=== PATIENT | male | born 1945 | race Caucasian/White ===

== ENCOUNTER 2022-05-06 17:12 | Inpatient (IN) | payer MEDICARE, MEDICAID ==
[~2022-05-06] VITALS: Ht 170.2 cm; Wt 87.0 kg
[2022-05-06] MEDS ORDERED: NS IV 500 ML 500 ML IV PRN (17:45)
[2022-05-06] MEDS ORDERED: polyethylene glycoL POWDER 17 GM (MIRALAX) PACK PO PRN (17:45)
[2022-05-06] MEDS ORDERED: diphenhydrAMINE 25 MG TAB (BENADRYL) PO PRN (17:45)
[2022-05-06] MEDS ORDERED: diphenhydrAMINE 50 MG/ML INJ (BENADRYL) IVP PRN (17:45)
[2022-05-06] MEDS ORDERED: MILK OF MAGNESIA 400 MG/5 ML 30 ML UDC PO PRN (17:45)
[2022-05-06] MEDS ORDERED: BISACODYL 10 MG SUPP (DULCOLAX) PR PRN (17:45)
[2022-05-06] MEDS ORDERED: ACETAMINOPHEN 325 MG TABLET PO PRN (17:45)
[2022-05-06] MEDS ORDERED: ONDANSETRON 4 MG/2 ML (SDV) Z0FRAN IV PRN (17:45)
[2022-05-06] MEDS ORDERED: CALCIUM CARBONATE 500 MG (TUMS) TAB.CHEW PO PRN (17:45)
[2022-05-06] MEDS ORDERED: ANTACID SUSP 30 ML UDC (MYLANTA) PO PRN (17:45)
[2022-05-06] MEDS ORDERED: ONDANSETRON 4 MG (ZOFRAN) ORAL DISSOLVE TAB PO PRN (17:45)
[2022-05-06] MEDS ORDERED: LACTULOSE SYRUP 10GM/15ML (ENULOSE) 30ML UDC PO PRN (17:45)
[2022-05-06] MEDS ORDERED: MELATONIN 3 MG TABLET PO PRN (17:45)
[2022-05-06] MEDS: NS IV 1000 ML 1,000 ML IV SCH (18:55)
[2022-05-06] MEDS ORDERED: dilTIAZem DRIP PRE-MIX 125 ML IV SCH (19:00)
[2022-05-06 19:11] LABS: BASOPHILS % (AUTO) 0 % (0-10); EOSINOPHILS % (AUTO) 0 % (0-10); HEMATOCRIT 44 % (40-54); HEMOGLOBIN 14.4 g/dL (13.3-17.7); LYMPHOCYTES # (AUTO) 0.7 10^3/uL (1.0-4.0); LYMPHOCYTES % (AUTO) 5 % (12-44); MEAN CORPUSCULAR HEMOGLOBIN 29 pg (25-34); MEAN CORPUSCULAR HGB CONC 33 g/dL (32-36); MEAN CORPUSCULAR VOLUME 87 fL (80-99); MEAN PLATELET VOLUME 10.5 fL (9.0-12.2); MONOCYTES # (AUTO) 0.2 10^3/uL (0.0-1.0); MONOCYTES % (AUTO) 2 % (0-12); NEUTROPHILS # (AUTO) 12.7 10^3/uL (1.8-7.8); NEUTROPHILS % (AUTO) 93 % (42-75); PLATELET COUNT 219 10^3/uL (130-400); WHITE BLOOD COUNT 13.7 10^3/uL (4.3-11.0)
[2022-05-06 19:22] LABS: ALBUMIN 3.5 GM/DL (3.2-4.5)
[2022-05-06 19:23] LABS: POTASSIUM 4.8 MMOL/L (3.6-5.0)
[2022-05-06 19:24] LABS: LYMPHOCYTES % (MANUAL) 5 %; MONOCYTES % (MANUAL) 3 %; NEUTROPHILS % (MANUAL) 92 %; RBC MORPH NORMAL
[2022-05-06 19:25] LABS: TOTAL PROTEIN 6.1 GM/DL (6.4-8.2)
[2022-05-06 19:27] LABS: BILIRUBIN,TOTAL 0.3 MG/DL (0.1-1.0)
--- NOTE | 2022-05-06 19:27 | Diagnostic Imaging Report ---
INDICATION: Shortness of breath COMPARISON: None available. TECHNIQUE: Single radiograph of the chest dated 05/06/2022. FINDINGS: The cardiac silhouette is within normal limits in size. No significant pulmonary vascular congestion. Retrocardiac density is present midline, felt to relate to a small hiatal hernia. Mild left basilar interstitial opacities. The lungs are otherwise clear of focal pulmonary opacity. No pleural effusion. No pneumothorax. No acute osseous abnormality IMPRESSION: Mild left basilar atelectasis and/or pneumonitis. Small hiatal hernia suspected. Dictated by: Dictated on workstation # [id number]
[2022-05-06 19:29] LABS: CREATININE SERUM 1.05 MG/DL (0.60-1.30)
--- NOTE | 2022-05-06 20:01 | History & Physical ---
History of Present Illness HPI/Chief Complaint CC: SVT post op left knee replacement at [facility] per Dr Cassidy HPI: This is a 76yoWM [place] patient at [facility] who presented to the ICU following an uncomplicated left knee replacement by Dr Cassidy at [facility] but 4 hours post op he was noted to have tachycardia and EKG revealed SVT. Patient required transfer to ICU and Cardiology consultation. 09/2021 admit DC note from [facility] copied and pasted: Symptomatic anemia Atrial fibrillation with rapid ventricular response Severe anemia Orthostatic dizziness Dyspnea History of alcohol abuse Resolved Hospital Problems No resolved problems to display. Kenvil 5d Jesse RamirezsArial 5d is a Kenvil 5d 76 y.o.Kenvil 5d Kenvil 5d maleArial 5d who was admitted to [facility] on Kenvil 5d 2Arial 5d and found to have a principle diagnosis of multiple erosive lesions in the stomach due to NSAID use as well as new onset atrial fibrillation with rapid ventricular response. 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 He was found to have anemia down to 6.4 on arrival and EKG also showed atrial fibrillation with rapid ventricular response. Patient had apparently been taking significant amounts of aspirin and other NSAIDs due to the pain in his knees. He had an appropriate response to transfusion with hemoglobin maintaining in the sevens following the transfusion of red blood cells. GI was consulted and performed an upper endoscopy with the finding of multiple lesions in the stomach as well as erosive esophagitis (see report below). Hemoglobin was stable following procedure in the transfusion. He is recommended to have follow-up with Dr. Elizabeth in 2 weeks with a repeat CBC at that time and to start twice daily PPI for healing of the erosions. Obviously, he is to avoid NSAIDs. Regarding his atrial fibrillation with rapid ventricular response, he was started on diltiazem 60 4 times daily with good response and spontaneous return to normal sinus rhythm. The patient will be transition to extended release diltiazem on discharge 240 mg and no anticoagulation due to his anemia. Due to his significant weakness, PT OT is recommending intermediate facility placement for him. See below for his echo as well as his EGD reports. [facility] GI Patient Name: Jesse Luis Procedure Date: 09/12/2021 Date of : 1945 Admit Type: Inpatient Age: 76 Attending MD: Kilo Elizabeth , Procedure: Upper GI endoscopy Indications: Iron deficiency anemia secondary to chronic blood loss Providers: Kilo Elizabeth Referring MD: Medicines: Propofol per Anesthesia Complications: No immediate complications. Procedure: Pre-Anesthesia Assessment: - This assessment was completed prior to the administration of sedation. After obtaining informed consent, the endoscope was passed under direct vision. Throughout the procedure, the patient's blood pressure, pulse, and oxygen saturations were monitored continuously. The was introduced through the mouth, and advanced to the second part of duodenum. The upper GI endoscopy was accomplished without difficulty. The patient tolerated the procedure well. Findings: LA Grade C (one or more mucosal breaks continuous between tops of 2 or more mucosal folds, less than 75% circumference) esophagitis with bleeding was found in the middle and lower thirds of the esophagus. Biopsies were taken with a cold forceps for histology. Verification of patient identification for the specimen was done. Estimated blood loss was minimal. A large hiatal hernia with multiple Basil ulcers was found. The proximal extent of the gastric folds (end of tubular esophagus) was 35 cm from the incisors. The hiatal narrowing was 40 cm from the incisors. A few localized 5 mm erosions with stigmata of recent bleeding were found in the gastric antrum. Biopsies were taken with a cold forceps for histology. Verification of patient identification for the specimen was done. Estimated blood loss was minimal. A few 5 mm sessile polyps with no stigmata of recent bleeding were found in the gastric body. These polyps were removed with a cold snare. Polyp resection was incomplete. The resected tissue was retrieved. Verification of patient identification for the specimen was done. Estimated blood loss was minimal. Few non-bleeding superficial duodenal ulcers with no stigmata of bleeding were found in the duodenal bulb. The largest lesion was 3 mm in largest dimension. Impression: - LA Grade C reflux esophagitis with bleeding. Biopsied. - Large hiatal hernia with multiple Basil ulcers. - Erosive gastropathy with stigmata of recent bleeding. Biopsied. - A few gastric polyps. Incomplete resection. Resected tissue retrieved. - Non-bleeding duodenal ulcers with no stigmata of bleeding. Recommendation: - Await pathology results. Kilo Elizabeth, 09/12/2021 4:52:42 PM This report has been signed electronically. Number of Addenda: 0 Note Initiated On: 09/12/2021 1:29 PM Scope Withdrawal Time Scope In: Scope Out: 100 Camryn Gautam GET Maldonado TRANSTHORACIC ECHOCARDIOGRAPHIC REPORT [facility] Patient Name: Jesse Luis :1945ge/Sex:76 y.o.male No Echo contrast was used Image quality: Poor acoustic windows with poor image quality Indication: Arrhythmias; Atrial fibrillation/flutter Rhythm: Sinus Septal wall thickness in end diastole: 11.8 mm LV internal dimension in end diastole: 46.3 mm LV posterior wall thickness in end diastole: 11.8 mm LV internal dimension in end systole: 30.1 mm AV Maximum velocity: 2.31 m/s AV Mean gradient: 8.7 mmHg AV Area: 1.99 cm Dimensionless valve index: 0.52 Stroke-volume index: 43.9 ml/m2 Left atrial volume index: 41.2 ml/m2 LEFT ATRIUM: Moderate enlargement (42-48 ml/m2) RIGHT ATRIUM: Normal size LEFT VENTRICLE: LV size: Normal size, Mild concentric hypertrophy, Normal wall motion, LV systolic function is Normal, estimated LVEF 60 %. Diastolic function is severely abnormal (grade 3). RIGHT VENTRICLE: Normal size and normal function INTERATRIAL SEPTUM: Normal INTERVENTRICULAR SEPTUM: Normal AORTIC VALVE: Calcified, Thickened, Mild regurgitation, no stenosis MITRAL VALVE: Leaflets are calcified, Leaflets are thickened,Moderate regurgitation, no stenosis TRICUSPID VALVE: Leaflets are thickened, Mild regurgitation PULMONIC VALVE: Not well visualized, No regurgitation PULMONARY VEINS: Systolic blunting of pulmonary venous flow PULMONARY ARTERIES: Elevated pulmonary pressure, estimated PASP 50-55mmHg INFERIOR VENA CAVA: Normal size with diminished respiratory variation, CVP 8 mmHg AORTA: Normal ascending aorta size PERICARDIUM: No pericardial effusion Conclusion: LV systolic function is preserved with an EF greater than 60% Grade 3 diastolic dysfunction PA systolic pressures estimated 50 to 55 mmHg Thickened valvular leaflets with moderate mitral regurgitation and mild aortic insufficiency Discharge medications and new prescriptions: Medication List START taking these medications [id number] mg Extended Release 24 hour tablet Commonly known as: Cardizem LA Take 1 Tablet (240 mg) by mouth daily. Signed by: Dr. Tien Giordano DO Quantity: 30 Tablet Refills: 0 [id number] mg Tablet, Delayed Release (E.C.) Commonly known as: PROTONIX Take 1 Tablet (40 mg) by mouth 2 times daily before meals. Signed by: Dr. Tien Giordano DO Quantity: 60 Tablet Refills: 2 Source: patient Exam Limitations: clinical condition Date Seen 05/06/22 Time Seen by a Provider: 18:00 Attending Physician Bridgett Oleary DO PCP Admitting Physician: Bridgett Oleary DO Attending Physician: Bridgett Oleary DO Referring Physician Date of Admission May 06, 2022 at 18:35 Home Medications & Allergies Home Medications Reviewed patient Home Medication Reconciliation performed by pharmacy medication reconciliations missile and missile checkout technician and/or nursing. Patients Allergies have been reviewed. Allergies Allergies Coded Allergies No Known Drug Allergies (Unverified05/06/22) Past Xbifudq-Nnileg-Dofgzq Hx Past Med/Social Hx: Reviewed Nursing Past Med/Soc Hx, Reviewed and Corrections made Patient Social History Marrital Status: single Employed/Student: retired Alcohol Use: Occasionally Uses Smoking Status: Former Smoker Past Medical History Surgeries: Orthopedic Cardiac: Atrial Fibrillation Neurological: Dementia Gastrointestinal: Gastrointestinal Bleed Musculoskeletal: Arthritis Review of Systems Constitutional: see HPI EENTM: no symptoms reported Respiratory: no symptoms reported Cardiovascular: palpitations Gastrointestinal: no symptoms reported Genitourinary: no symptoms reported Musculoskeletal: back pain, joint pain Psychiatric/Neurological: No Symptoms Reported All Other Systems Reviewed Negative Unless Noted: Yes Physical Exam Physical Exam Vital Signs Vital Signs - First Documented 05/06/22 05/06/22 05/06/22 18:41 19:05 19:12 Temp 36.3 Pulse 154 B/P (MAP) 105/69 Capillary Refill : Height, Weight, BMI Height: '" Weight: lbs. oz. kg; BMI Method: General Appearance: No Apparent Distress, WD/WN, Chronically ill Eyes: Bilateral Eye Normal Inspection, Bilateral Eye PERRL HEENT: PERRL/EOMI, Normal ENT Inspection, Pharynx Normal Neck: Full Range of Motion, Normal Inspection, Non Tender, Supple, Carotid Bruit Respiratory: Chest Non Tender, Lungs Clear, Normal Breath Sounds, No Accessory Muscle Use, No Respiratory Distress Cardiovascular: No Edema, No Gallop, No JVD, No Murmur, Normal Peripheral Pulses, Tachycardia Gastrointestinal: Normal Bowel Sounds, No Organomegaly, No Pulsatile Mass, Non Tender, Soft Back: Normal Inspection, No CVA Tenderness, No Vertebral Tenderness Extremity: Normal Capillary Refill, Normal Inspection, Normal Range of Motion (except left leg), Non Tender, No Calf Tenderness, No Pedal Edema Neurologic/Psychiatric: Alert, Oriented x3, No Motor/Sensory Deficits, Normal Mood/Affect Skin: Normal Color, Warm/Dry Lymphatic: No Adenopathy Results Results/Procedures Labs Laboratory Tests 05/06/22 18:58 Patient resulted labs reviewed. Assessment/Plan Admission Diagnosis Assessment: Acute SVT with hypotension requiring transfer to higher level of care ICU from [facility] s/p knee left replacement at [facility] per Dr Cassidy uncomplicated POD # 0 ATX on CXR with elevated wbc will need to cover for PNA h/o AF Debility resides in [place] h/o alcohol use OA h/o GIB 09/2021 from NSAID's requiring transfusion Leukocytosis Plan: ICU [facility], [place] drip Dr Ortiz appreciated Abx coverage Septic w/u Admission Status: Inpatient Order (span 2 midnights) Reason for Inpatient Admission: SVT following left knee replacement Diagnosis/Problems Diagnosis/Problems (1) SVT (supraventricular tachycardia) Clinical Quality Measures DVT/VTE Risk/Contraindication: Contraindications-Mechi: Other *list below* Other: OR BRIDGETT OLEARY DO May 06, 2022 20:00
--- NOTE | 2022-05-06 20:04 | Tele-ICU Consult ---
Progress Note 76 yo M new admission from OSH? with SVT, NAGMA, hypothermia. Video assessment and chart review completed. Patient is awake, alert on RA talkative in NAD. Diltiazem gtt with improvement in HR from 150 to 79. Nonspecific leukocytosis with negative sepsis screen. Medications, orders reviewed. Metabolic acidosis likely due to hyperchloremic IVF resuscitation. Recheck temp pending, frequent VS checks in ICU currently. AM labs ordered DVT prophylaxis added Diagnosis: SVT, metabolic acidosis _X__ patient provided consent for the telehealth visit ___patient is not able to provide consent for the telehealth visit, service provided to critically care patient using implied consent doctrine. A total of _15_ minutes of critical care time was devoted to this patient, including reviewing this patient's available data, including medical history, events of note and test results. I have overseen the activities of other members of the care team under my direct supervision during events of the note . This was required to treat and/or prevent further deterioration of critical care conditions ( as above ). Service provided to a patient admitted to ICU bed via interactive E-CARE system with real-time audio and video telecommunications from [facility]- ICU hub located in [place], [place] ROMA KRAUSE MD May 06, 2022 20:04
[2022-05-06] MEDS: SENNOSIDES 8.6 MG (SENOKOT) TAB PO SCH (21:00)
[2022-05-06] MEDS: DOCUSATE SODIUM 100 MG (COLACE) CAP PO SCH (21:00)
[2022-05-06] MEDS ORDERED: CEFEPIME INJECTION 1,000 MG in NS (IVPB) 50 ML IV SCH (21:00)
[2022-05-06] MEDS: RT-ALBUTEROL/IPRATROPIUM 3 ML (DUONEB) VIAL INH SCH (21:51)
[2022-05-06] MEDS: ENOXAPARIN 40 MG/0.4 ML (LOVENOX) SYR SC SCH (22:43)
[2022-05-07 04:47] LABS: ABG BASE EXCESS -2.6 MMOL/L (-2.5-2.5); ABG OXYGEN SATURATION 95 % (94-100); ABG PCO2 35 MMHG (35-45); ABG PO2 81 MMHG (79-93); ABG TCO2 22.6 MMOL/L (21.0-31.0); ALLENS TEST YES-POS; PATIENT TEMP 36.9
[2022-05-07 05:14] LABS: BASOPHILS % (AUTO) 0 % (0-10); EOSINOPHILS % (AUTO) 0 % (0-10); HEMATOCRIT 39 % (40-54); HEMOGLOBIN 12.8 g/dL (13.3-17.7); LYMPHOCYTES # (AUTO) 1.2 10^3/uL (1.0-4.0); LYMPHOCYTES % (AUTO) 9 % (12-44); MEAN CORPUSCULAR HEMOGLOBIN 29 pg (25-34); MEAN CORPUSCULAR HGB CONC 33 g/dL (32-36); MEAN CORPUSCULAR VOLUME 88 fL (80-99); MEAN PLATELET VOLUME 10.9 fL (9.0-12.2); MONOCYTES % (AUTO) 7 % (0-12); NEUTROPHILS # (AUTO) 11.9 10^3/uL (1.8-7.8); NEUTROPHILS % (AUTO) 84 % (42-75); PLATELET COUNT 183 10^3/uL (130-400); WHITE BLOOD COUNT 14.1 10^3/uL (4.3-11.0)
[2022-05-07 05:18] LABS: INR 1.1 (0.8-1.4); PROTHROMBIN TIME PATIENT 14.3 SEC (12.2-14.7)
[2022-05-07 05:29] LABS: ALBUMIN 3.2 GM/DL (3.2-4.5); POTASSIUM 4.4 MMOL/L (3.6-5.0)
[2022-05-07 05:32] LABS: TOTAL PROTEIN 5.4 GM/DL (6.4-8.2)
[2022-05-07 05:33] LABS: BILIRUBIN,TOTAL 0.3 MG/DL (0.1-1.0)
[2022-05-07 05:35] LABS: CREATININE SERUM 0.91 MG/DL (0.60-1.30); PHOSPHORUS 2.8 MG/DL (2.3-4.7)
[2022-05-07] MEDS ORDERED: POTASSIUM CL 10MEQ/50ML IVPB 50 ML IV SCH (06:00)
[2022-05-07] MEDS ORDERED: KCL 20 MEQ TAB (K-DUR) PO SCH (06:00)
[2022-05-07] MEDS ORDERED: MAGNESIUM 1 GM/100 ML IVPB 100 ML IV SCH (06:00)
[2022-05-07] MEDS: SENNOSIDES 8.6 MG (SENOKOT) TAB PO SCH ×2 (08:15→23:27)
[2022-05-07] MEDS: DOCUSATE SODIUM 100 MG (COLACE) CAP PO SCH ×2 (08:15→23:27)
[2022-05-07] MEDS: CEFEPIME INJECTION 1,000 MG in NS (IVPB) 50 ML IV SCH ×3 (08:18→21:28)
[2022-05-07] MEDS: NS IV 1000 ML 1,000 ML IV SCH (08:22)
[2022-05-07] MEDS: RT-ALBUTEROL/IPRATROPIUM 3 ML (DUONEB) VIAL INH SCH ×2 (08:31→15:27)
[2022-05-07] MEDS ORDERED: NS IV 1000 ML 1,000 ML IV SCH (08:39)
--- NOTE | 2022-05-07 09:21 | Physical Therapy Evaluation ---
PT Evaluation-General Medical Diagnosis Admission Date May 06, 2022 at 18:35 Medical Diagnosis: SVT Onset Date: May 06, 2022 Therapy Diagnosis Therapy Diagnosis: impaired mobility, ROM Precautions Precautions/Isolations: Fall Prevention, Standard Precautions Weight Bear Status Left Lower Extremity: Left Weight Bearing/Tolerated Referral Physician: Bridgett Daniels DO Reason for Referral: Evaluation/Treatment Medical History Additional Medical History Past Medical History Surgeries: Orthopedic Cardiac: Atrial Fibrillation Neurological: Dementia Gastrointestinal: Gastrointestinal Bleed Musculoskeletal: Arthritis Current History Patient had a left total knee on 05/06/22 per patient Reviewed History: Yes Social History Home: [facility] Prior Prior Level of Function SCALE: Activities may be completed with or without assistive devices. 3-Cgxwsdaihu-wyfjdvq completes the activity by him/herself with no assistance from a helper. 5-Set-up or Clean-up Assistance-helper sets up or cleans up; patient completes activity. Julian assists only prior to or following the activity. 4-Supervision or Touching Assistance-helper provides verbal cues and/or touching/steadying and/or contact guard assistance as patient completes activity. Assistance may be provided throughout the activity or intermittently. 3-Partial/Moderate Assistance-helper does LESS THAN HALF the effort. Julian lifts, holds or supports trunk or limbs, but provides less than half the effort. 2-Substantial/Maximal Assistance-helper does MORE THAN HALF the effort. Julian lifts or holds trunk or limbs and provides more than half the effort. 1-Ehhysxyuc-huihyh does ALL the effort. Patient does none of the effort to complete the activity. Or, the assistance of 2 or more helpers is required for the patient to complete the activity. If activity was not attempted, code reason: 7-Patient Refused. 9-Not Applicable-not attempted and the patient did not perform the activity before the current illness, exacerbation or injury. 10-Not Attempted due to Environmental Limitations-(lack of equipment, weather restraints, etc.). 88-Not Attempted due to Medical Conditions or Safety Concerns. Bed Mobility: 3 Transfers (B,C,W/C): 3 Gait: 3 Indoor Mobility (Ambulation): Needed Some Help Prior Devices Use: Manual wheelchair, Walker PT Evaluation-Current Subjective Patient in bed pre tx, agrees to PT, has no complaints of pain. Patient had a left total knee yesterday per patient. Patient states he uses a WC for mobility primarily at the [facility]. Pt/Family Goals to be independent at home Objective Patient Orientation: Person, Place, Situation Attachments: New Catheter, IV ROM/Strength ROM Lower Extremities left knee extension +10 degrees, flexion 70 degrees Sensory Vision: Wears Glasses Hearing: Functional Sensation Right Lower Extremit: Intact Sensation Left Lower Extremity: Intact Transfers Roll Left to Right (QC): 4 Sit to Lying (QC): 4 Lying to Sitting/Side of Bed(Q: 4 Sit to Stand (QC): 4 Patient is able to sit to the side of the bed with SBA, stand with CGA, he is not able to ambulate due to pain in right knee, he is able to sidestep one step toward the head of the bed while bearing weight on his arms but no more than one step. Patient sits back down and lays down with SBA, he is able to properly position himself with cues. Balance Sitting Static: Normal Sitting Dynamic: Normal Standing Static: Fair Treatment LLE total knee protocol x10 (AP, QS, HS, SAQ, SLR) Assessment/Needs Patient in bed post tx with nurse call, phone, tray, all needs met. Patient has impaired mobility and ROM. His left knee has fairly good function but he has severe pain in right knee that kept him from ambulating. Rehab Potential: Guarded PT Group Home Goals Taxonomy Teacher Goals PT Group Home Goals Time Frame: May 14, 2022 Roll Left & Right (QC): 6 Sit to Lying (QC): 6 Lying-Sitting on Side/Bed(QC): 6 Sit to Stand (QC): 4 (SBA) Chair/Epj-on-Nzyho Xfer(QC): 4 (SBA) Walk 10 feet (QC): 4 (SBA) PT Plan Problem List Problem List: Activity Tolerance, Functional Strength, Safety, Balance, Gait, Transfer, Bed Mobility, ROM Treatment/Plan Treatment Plan: Continue Plan of Care Treatment Plan: Bed Mobility, Education, Functional Activity Glenny, Functional Strength, Gait, Safety, Therapeutic Exercise, Transfers Treatment Duration: May 14, 2022 Frequency: 11 times per week Estimated Hrs Per Day: .25 hour per day Patient and/or Family Agrees t: Yes Safety Risks/Education Patient Education: Correct Positioning, Safety Issues Teaching Recipient: Patient Teaching Methods: Demonstration, Discussion Response to Teaching: Reinforcement Needed Discharge Recommendations Plan Patient will perform bed mobility and transfer training, balance and endurance training, functional strengthening, gait training, and education, to improve functional mobility Therapy Discharge Recommendati: Other, See Comments (NH) Time Time In: 841 Time Out: 900 DATE: May 07, 2022 Total Billed Treatment Time: 19 Total Billed Treatment 1 visit EVM 19' EMMANUEL SYKES PT May 07, 2022 09:21
--- NOTE | 2022-05-07 11:17 | Consultation-Cardiology ---
HPI-Cardiology Cardiology Consultation Date of Consultation 05/07/22 Date of Admission Time Seen by Provider: 11:12 Indication: Atrial fibrillation HPI 76-year-old gentleman with paroxysmal atrial fibrillation, hypertension hyperlipidemia, diastolic dysfunction. Underwent knee replacement, postoperatively noted to be in paroxysmal atrial tachycardia. He was transferred from [facility] to the ICU and started on Cardizem drip. Continue to have episodes of tachycardia alternating with bradycardia while in ICU. On my evaluation the patient was having significant tremor, he was agitated and requesting to get out of the bed and wanting to start physical therapy as soon as possible Home Medications & Allergies Allergies: Coded Allergies: No Known Drug Allergies (Unverified , 05/06/22) Home Medication List Reviewed: Yes MAB-Vbckvo-Aidshv Hx Patient Social History Marital Status: single Employed/Student: retired Smoking Status: Former Smoker Have you traveled recently?: No Alcohol Use?: No Past Medical History Discussed below Family Medical History Significant Family History: No Pertinent Family Hx Review of Systems-General Review of Systems Constitutional: see HPI EENTM: no symptoms reported Respiratory: no symptoms reported Cardiovascular: palpitations Gastrointestinal: no symptoms reported Genitourinary: no symptoms reported Musculoskeletal: back pain, joint pain Skin: no symptoms reported, see HPI Psychiatric/Neurological: See HPI, Anxiety, Tremors All Other Systems Reviewed Negative Unless Noted: Yes Reviewed Test Results Reviewed Test Results Lab Laboratory Tests Test 05/06/22 18:58 05/06/22 21:00 05/06/22 23:15 05/07/22 04:31 Range/Units White Blood Count 13.7 H 4.3-11.0 10^3/uL Red Blood Count 5.06 4.30-5.52 10^6/uL Hemoglobin 14.4 13.3-17.7 g/dL Hematocrit 44 40-54 % Mean Corpuscular Volume 87 80-99 fL Mean Corpuscular Hemoglobin 29 25-34 pg Mean Corpuscular Hemoglobin Concent 33 32-36 g/dL Red Cell Distribution Width 13.4 10.0-14.5 % Platelet Count 219 130-400 10^3/uL Mean Platelet Volume 10.5 9.0-12.2 fL Immature Granulocyte % (Auto) 0 % Neutrophils (%) (Auto) 93 H 42-75 % Lymphocytes (%) (Auto) 5 L 12-44 % Monocytes (%) (Auto) 2 0-12 % Eosinophils (%) (Auto) 0 0-10 % Basophils (%) (Auto) 0 0-10 % Neutrophils # (Auto) 12.7 H 1.8-7.8 10^3/uL Lymphocytes # (Auto) 0.7 L 1.0-4.0 10^3/uL Monocytes # (Auto) 0.2 0.0-1.0 10^3/uL Eosinophils # (Auto) 0.0 0.0-0.3 10^3/uL Basophils # (Auto) 0.0 0.0-0.1 10^3/uL Immature Granulocyte # (Auto) 0.1 0.0-0.1 10^3/uL Neutrophils % (Manual) 92 % Lymphocytes % (Manual) 5 % Monocytes % (Manual) 3 % Blood Morphology Comment NORMAL Sodium Level 138 135-145 MMOL/L Potassium Level 4.8 3.6-5.0 MMOL/L Chloride Level 108 H 98-107 MMOL/L Carbon Dioxide Level 18 L 21-32 MMOL/L Anion Gap 12 5-14 MMOL/L Blood Urea Nitrogen 15 7-18 MG/DL Creatinine 1.05 0.60-1.30 MG/DL Estimat Glomerular Filtration Rate 74 BUN/Creatinine Ratio 14 Glucose Level 165 H 70-105 MG/DL Calcium Level 9.0 8.5-10.1 MG/DL Corrected Calcium 9.4 8.5-10.1 MG/DL Total Bilirubin 0.3 0.1-1.0 MG/DL Aspartate Amino Transf (AST/SGOT) 16 5-34 U/L Alanine Aminotransferase (ALT/SGPT) 19 0-55 U/L Alkaline Phosphatase 62 40-136 U/L Troponin I < 0.028 <0.028 NG/ML Total Protein 6.1 L 6.4-8.2 GM/DL Albumin 3.5 3.2-4.5 GM/DL Lactic Acid Level 2.04 *H 1.24 0.50-2.00 MMOL/L Blood Gas Puncture Site RIGHT RADIAL Blood Gas Patient Temperature 36.9 Arterial Blood pH 7.40 7.37-7.43 Arterial Blood Partial Pressure CO2 35 35-45 MMHG Arterial Blood Partial Pressure O2 81 79-93 MMHG Arterial Blood HCO3 22 L 23-27 MMOL/L Arterial Blood Total CO2 22.6 21.0-31.0 MMOL/L Arterial Blood Oxygen Saturation 95 94-100 % Arterial Blood Base Excess -2.6 L -2.5-2.5 MMOL/L Otoniel Test YES-POS Blood Gas Ventilator Setting NA Blood Gas Inspired Oxygen NA Test 05/07/22 04:45 Range/Units White Blood Count 14.1 H 4.3-11.0 10^3/uL Red Blood Count 4.49 4.30-5.52 10^6/uL Hemoglobin 12.8 L 13.3-17.7 g/dL Hematocrit 39 L 40-54 % Mean Corpuscular Volume 88 80-99 fL Mean Corpuscular Hemoglobin 29 25-34 pg Mean Corpuscular Hemoglobin Concent 33 32-36 g/dL Red Cell Distribution Width 13.4 10.0-14.5 % Platelet Count 183 130-400 10^3/uL Mean Platelet Volume 10.9 9.0-12.2 fL Immature Granulocyte % (Auto) 0 % Neutrophils (%) (Auto) 84 H 42-75 % Lymphocytes (%) (Auto) 9 L 12-44 % Monocytes (%) (Auto) 7 0-12 % Eosinophils (%) (Auto) 0 0-10 % Basophils (%) (Auto) 0 0-10 % Neutrophils # (Auto) 11.9 H 1.8-7.8 10^3/uL Lymphocytes # (Auto) 1.2 1.0-4.0 10^3/uL Monocytes # (Auto) 1.0 0.0-1.0 10^3/uL Eosinophils # (Auto) 0.0 0.0-0.3 10^3/uL Basophils # (Auto) 0.0 0.0-0.1 10^3/uL Immature Granulocyte # (Auto) 0.1 0.0-0.1 10^3/uL Prothrombin Time 14.3 12.2-14.7 SEC INR Comment 1.1 0.8-1.4 Activated Partial Thromboplast Time 29 24-35 SEC Sodium Level 141 135-145 MMOL/L Potassium Level 4.4 3.6-5.0 MMOL/L Chloride Level 111 H 98-107 MMOL/L Carbon Dioxide Level 20 L 21-32 MMOL/L Anion Gap 10 5-14 MMOL/L Blood Urea Nitrogen 16 7-18 MG/DL Creatinine 0.91 0.60-1.30 MG/DL Estimat Glomerular Filtration Rate 87 BUN/Creatinine Ratio 18 Glucose Level 139 H 70-105 MG/DL Calcium Level 9.0 8.5-10.1 MG/DL Corrected Calcium 9.6 8.5-10.1 MG/DL Phosphorus Level 2.8 2.3-4.7 MG/DL Magnesium Level 2.0 1.6-2.4 MG/DL Total Bilirubin 0.3 0.1-1.0 MG/DL Aspartate Amino Transf (AST/SGOT) 13 5-34 U/L Alanine Aminotransferase (ALT/SGPT) 16 0-55 U/L Alkaline Phosphatase 57 40-136 U/L Troponin I 0.059 H <0.028 NG/ML Total Protein 5.4 L 6.4-8.2 GM/DL Albumin 3.2 3.2-4.5 GM/DL Physical Exam Physical Exam Vital Signs Vital Signs - First Documented 05/06/22 05/06/22 05/06/22 18:41 19:00 19:12 Temp 36.3 Pulse 154 B/P (MAP) 105/69 (81) Pulse Ox 90 O2 Delivery Room Air Capillary Refill : Height, Weight, BMI Height: '" Weight: lbs. oz. kg; 31.82 BMI Method: General Appearance: No Apparent Distress, WD/WN, Chronically ill Eyes: Bilateral Eye Normal Inspection, Bilateral Eye PERRL HEENT: PERRL/EOMI, Normal ENT Inspection, Pharynx Normal Neck: Full Range of Motion, Normal Inspection, Non Tender, Supple, Carotid Bruit Respiratory: Chest Non Tender, Lungs Clear, Normal Breath Sounds, No Accessory Muscle Use, No Respiratory Distress Cardiovascular: No Edema, No Gallop, No JVD, No Murmur, Normal Peripheral Pulses, Systolic Murmur, Tachycardia Gastrointestinal: Normal Bowel Sounds, No Organomegaly, No Pulsatile Mass, Non Tender, Soft Back: Normal Inspection, No CVA Tenderness, No Vertebral Tenderness Extremity: Normal Capillary Refill, Normal Inspection, Normal Range of Motion (except left leg), Non Tender, No Calf Tenderness, No Pedal Edema Neurologic/Psychiatric: Alert, Oriented x3, No Motor/Sensory Deficits, Normal Mood/Affect Skin: Normal Color, Warm/Dry Lymphatic: No Adenopathy A/P-Cardiology Admission Diagnosis Paroxysmal atrial fibrillation Sinus node dysfunction Hypertension Hyperlipidemia. Assessment/Plan Paroxysmal atrial fibrillation alternating with sinus node dysfunction Having episodes of bradycardia. Started on Cardizem drip Heart rate is better controlled I will switch him to Cardizem 30 mg every 6 hours orally and stop the drip and evaluate tolerance and response [id number] score 4. Patient is unable to tolerate oral anticoagulation due to recent GI bleed. Status post knee replacement. Done at [facility]. Recovering Starting physical therapy 2D echo from [facility] reported to have left atrial enlargement, mild LVH with ejection fraction 60%, grade 3 diastolic dysfunction, pulmonary hypertens ion with PA pressure 50 to 55 mmHg Hypertension, currently borderline hypotensive, monitor blood pressure Hyperlipidemia, monitor lipids. Essential tremor, starting low-dose beta-blockers and evaluate tolerance and response Diabetes mellitus, followed and managed by primary care physician Status post recent GI bleed secondary to the use of aspirin and NSAID. Requiring blood transfusion. Continue to monitor Clinical Quality Measures DVT/VTE Risk/Contraindication: Contraindications-Mechi: Other *list below* Other: OR LORRIE FULTON MD May 07, 2022 11:17
--- NOTE | 2022-05-07 11:59 | Tele-ICU Progress Note ---
Subjective Date Seen by a Provider: May 07, 2022 Time Seen by a Provider: 11:58 Subjective/Events-last exam (Tele-ICU Physician , consultation) Available chart/ vitals / labs / Images reviewed H&P is from ER notes Patient's information available about PMH, allergy reviewed in EMR. ROS as per chart and RN report Video assessment done using teleICU camera, rest of exam as per RN Discussed with RN. He is a 76-year-old white male apparently prison patient reportedly had a uncomplicated left knee replacement at [facility] in [place] and a 4 hours after the surgery reportedly found to have a atrial fibrillation and with rapid ventricular rate. Subsequently he required ICU admission and cardiology consultation hence he is transferred to [facility] via [facility] in [place]. Currently his heart rate is controlled on 5 mg of Cardizem drip however his heart rate going up and down suggestive of for sinus node dysfunction. Patient already seen by cardiology. Impression 1. Status post left knee replacement 2. Paroxysmal atrial fibrillation with possible sinus node dysfunction 3. History of hypertension 4. History of hyperlipidemia 5. Type 2 diabetes mellitus Recommendations 1. Management of atrial fibrillation per cardiology. Anticoagulation could not be given as patient recently had a upper GI bleed secondary to the use of aspirin and NSAID 2. Diabetes management per primary care 3. Echocardiogram 4. Care coordination with bedside consultants and primary care physician. 5. Physical therapy. Sepsis Event Evaluation Height, Weight, BMI Height: '" Weight: lbs. oz. kg; 31.82 BMI Method: Focused Exam Lactate Level 05/06/22 21:00: Lactic Acid Level 2.04*H 05/06/22 23:15: Lactic Acid Level 1.24 Exam Exam Patient acknowledged, consented, and participated in this virtual visit which was conducted using real time audio/video Vital Signs Date Time Temp Pulse Resp B/P (MAP) Pulse Ox O2 Delivery O2 Flow Rate FiO2 05/07/22 11:00 78 129/72 (91) 95 Room Air 05/07/22 10:00 88 104/87 (93) 95 Room Air 05/07/22 09:00 75 110/80 (90) 100 Room Air 05/07/22 08:00 97 Room Air 05/07/22 08:00 73 92/64 (73) 100 Room Air 05/07/22 07:43 36.7 05/07/22 07:07 64 05/07/22 07:00 66 109/93 (98) 99 Room Air 05/07/22 06:00 65 107/55 (72) 100 Room Air 05/07/22 05:00 134 95/58 (70) 100 Room Air 05/07/22 04:29 27 05/07/22 04:26 139 05/07/22 04:18 100 Room Air 05/07/22 04:00 67 101/53 (69) 100 Room Air 05/07/22 03:00 70 108/55 (72) 100 Room Air 05/07/22 02:18 91 138/62 (87) 100 Room Air 05/07/22 02:15 68 05/07/22 02:00 135 92/68 (76) 100 Room Air 05/07/22 01:12 144 136/87 (103) 88 Room Air 05/07/22 01:00 140 05/07/22 00:30 140 111/77 (88) 100 Room Air 05/07/22 00:00 98 Room Air 05/07/22 00:00 142 146/90 (108) 86 Room Air 05/06/22 23:00 141 97/67 (77) 100 Room Air 05/06/22 22:00 80 105/59 (74) 100 Room Air 05/06/22 21:49 100 Room Air 05/06/22 21:00 75 105/59 (74) 100 Room Air 05/06/22 20:00 81 130/71 (90) 100 Room Air 05/06/22 20:00 100 Room Air 05/06/22 19:45 82 120/74 (89) 100 Room Air 05/06/22 19:30 82 134/65 (88) 99 Room Air 05/06/22 19:24 79 105/69 05/06/22 19:15 76 121/67 (85) 100 Room Air 05/06/22 19:12 36.3 05/06/22 19:08 64 05/06/22 19:06 61 125/61 (82) 90 Room Air 05/06/22 19:05 150 105/69 05/06/22 19:04 37 05/06/22 19:00 151 105/69 (81) 90 Room Air 05/06/22 19:00 151 05/06/22 18:41 154 I & O0 05/07/22 07:00 Intake Total 730 ml Output Total 1050 ml Balance -320 ml Height & Weight Height: '" Weight: lbs. oz. kg; 31.82 BMI Method: General Appearance: No Apparent Distress, WD/WN, Chronically ill HEENT: PERRL/EOMI, Normal ENT Inspection, Pharynx Normal Neck: Full Range of Motion, Normal Inspection, Non Tender, Supple, Carotid Bruit Respiratory: Chest Non Tender, Lungs Clear, Normal Breath Sounds, No Accessory Muscle Use, No Respiratory Distress Cardiovascular: No Edema, No Gallop, No JVD, No Murmur, Normal Peripheral Pulses, Systolic Murmur, Tachycardia Extremity: Normal Capillary Refill, Normal Inspection, Normal Range of Motion (except left leg), Non Tender, No Calf Tenderness, No Pedal Edema Neurologic/Psychiatric: Alert, Oriented x3, No Motor/Sensory Deficits, Normal Mood/Affect Skin: Normal Color, Warm/Dry Lymphatic: No Adenopathy Other comments PE PER RN Results Lab Laboratory Tests 05/06/22 18:58 05/07/22 04:45 Assessment/Plan Assessment/Plan ABOVE Critical Care: Critically Ill Patient Time spent with patient (mins): 15 YOBANY BASSETT MD May 07, 2022 11:59
[2022-05-07] MEDS: PROPRANOLOL 20 MG (INDERAL) TABLET PO SCH ×2 (12:22→22:19)
[2022-05-07] MEDS ORDERED: DIGOXIN 0.25 MG/ML (LANOXIN) 2 ML AMP IV NR (12:45)
[2022-05-07] MEDS ORDERED: FLEC50TA PO (13:07)
[2022-05-07] MEDS ORDERED: FLUT9.9S NSEACH (13:07)
[2022-05-07] MEDS ORDERED: PANT20TA18 PO (13:07)
[2022-05-07] MEDS ORDERED: MENT118G TP (13:07)
[2022-05-07] MEDS ORDERED: ASCO-262 PO (13:07)
[2022-05-07] MEDS ORDERED: METO50TA15 PO (13:07)
[2022-05-07] MEDS ORDERED: FERR325T5 PO (13:07)
[2022-05-07] MEDS ORDERED: NS IV 1000 ML 1,000 ML ONE (13:36)
--- NOTE | 2022-05-07 14:26 | Physical Therapy Daily Note ---
PT Daily Note-Current Subjective Patient in bed pre tx, agrees to PT, has 5/10 pain in right knee, no pain in left knee. Pain Section J - Health Conditions 1. Rarely or not at all 2. Occasionally 3. Frequently 4. Almost constantly 8. Unable to answer Pain Effect on Sleep: 4 Pain Interference with Therapy: 4 Pain Interference w/Day-to-Day: 4 Appearance Patient in bed post tx with nurse call, phone, tray, all needs met. Mental Status Patient Orientation: Person, Place, Situation Transfers SCALE: Activities may be completed with or without assistive devices. 9-Jtylomppko-wswbyko completes the activity by him/herself with no assistance from a helper. 5-Set-up or Clean-up Assistance-helper sets up or cleans up; patient completes activity. [place] assists only prior to or following the activity. 4-Supervision or Touching Assistance-helper provides verbal cues and/or touching/steadying and/or contact guard assistance as patient completes activity. Assistance may be provided throughout the activity or intermittently. 3-Partial/Moderate Assistance-helper does LESS THAN HALF the effort. [place] lifts, holds or supports trunk or limbs, but provides less than half the effort. 2-Substantial/Maximal Assistance-helper does MORE THAN HALF the effort. [place] lifts or holds trunk or limbs and provides more than half the effort. 5-Grcqxktuf-brgphl does ALL the effort. Patient does none of the effort to complete the activity. Or, the assistance of 2 or more helpers is required for the patient to complete the activity. If activity was not attempted, code reason: 7-Patient Refused. 9-Not Applicable-not attempted and the patient did not perform the activity before the current illness, exacerbation or injury. 10-Not Attempted due to Environmental Limitations-(lack of equipment, weather restraints, etc.). 88-Not Attempted due to Medical Conditions or Safety Concerns. Roll Left & Right (QC): 4 Sit to Lying (QC): 4 Lying to Sitting/Side of Bed(Q: 4 Sit to Stand (QC): 4 CGA for sit to stand, patient's left knee is flexed quite a bit during standing, has a lot of pain in right knee, patient is able to take several steps to the head of the bed by bearing weight on his arms Weight Bearing Left Lower Extremity: Left Weight Bearing/Tolerated Exercises Seated Therapy Exercises: Ankle pumps, Long arc quads, Hamstring Curls Seated Reps: 20 Treatments bed mobility and transfers, ROM Assessment Current Status: Fair Progress improved standing, patient was able to take more steps, no normal ambulation though PT Care Home Goals Conference Assistant Goals PT Care Home Goals Time Frame: May 14, 2022 Roll Left & Right (QC): 6 Sit to Lying (QC): 6 Lying-Sitting on Side/Bed(QC): 6 Sit to Stand (QC): 4 (SBA) Chair/Bxd-rh-Deqgb Xfer(QC): 4 (SBA) Walk 10 feet (QC): 4 (SBA) PT Plan Problem List Problem List: Activity Tolerance, Functional Strength, Safety, Balance, Gait, Transfer, Bed Mobility, ROM Treatment/Plan Treatment Plan: Continue Plan of Care Treatment Plan: Bed Mobility, Education, Functional Activity [place], Functional Strength, Gait, Safety, Therapeutic Exercise, Transfers Treatment Duration: May 14, 2022 Frequency: 11 times per week Estimated Hrs Per Day: .25 hour per day Patient and/or Family Agrees t: Yes Safety Risks/Education Patient Education: Correct Positioning, Safety Issues Teaching Recipient: Patient Teaching Methods: Demonstration, Discussion Response to Teaching: Reinforcement Needed Time Time In: 1406 Time Out: 1416 DATE: May 07, 2022 Total Billed Treatment Time: 10 Total Billed Treatment 1 visit FA EMMANUEL JUAREZ PT May 07, 2022 14:25
--- NOTE | 2022-05-07 14:32 | Occupational Therapy Eval ---
OT Evaluation-General/PLF Medical Diagnosis Admission Date May 06, 2022 at 18:35 Medical Diagnosis: SVT Onset Date: May 06, 2022 Therapy Diagnosis Therapy Diagnosis: reduced adl status Precautions Precautions/Isolations: Fall Prevention, Standard Precautions Weight Bear Status Weight Bearing Restriction: Weight Bearing/Tolerated Location Restriction: L LE Referral Physician: Bridgett Daniels DO Referral Reason: Evaluation/Treatment Medical History Pertinent Medical History: Atrial Fib, Arthritis Current History pt s/p L TKA, post op day 1. He was transferred from [facility] after experiencing tachycardia post op. EKG reveals SVT. Per patient, he is from [facility]. He states he was indep with adls but has supervision with showers. He uses a w/c at baseline and propels forward with his feet. Reviewed History: Yes Social History Home: Intermediate ADL-Prior Level of Function SCALE: Activities may be completed with or without assistive devices. 4-Gmxkizgucb-wecjclv completes the activity by him/herself with no assistance from a helper. 5-Set-up or Clean-up Assistance-helper sets up or cleans up; patient completes activity. [place] assists only prior to or following the activity. 4-Supervision or Touching Assistance-helper provides verbal cues and/or touching/steadying and/or contact guard assistance as patient completes activity. Assistance may be provided throughout the activity or intermittently. 3-Partial/Moderate Assistance-helper does LESS THAN HALF the effort. [place] lifts, holds or supports trunk or limbs, but provides less than half the effort. 2-Substantial/Maximal Assistance-helper does MORE THAN HALF the effort. [place] lifts or holds trunk or limbs and provides more than half the effort. 6-Satjtzhoz-pazoci does ALL the effort. Patient does none of the effort to complete the activity. Or, the assistance of 2 or more helpers is required for the patient to complete the activity. If activity was not attempted, code reason: 7-Patient Refused. 9-Not Applicable-not attempted and the patient did not perform the activity before the current illness, exacerbation or injury. 10-Not Attempted due to Environmental Limitations-(lack of equipment, weather restraints, etc.). 88-Not Attempted due to Medical Conditions or Safety Concerns. Self Care: Needed Some Help Functional Cognition: Unknown DME/Equipment: Tub (walk in tub) OT Current Status Subjective Pt denies pain, just some "stiffness" in his LLE. Pt is hyper-verbal and tangential with communication. Appearance Pt returned to supine in bed with all needs met Mental Status/Objective Patient Orientation: Person, Place, Time, Situation Forgetful Attachments: New Catheter, IV, SCD's, Telemetry Current Glasses/Contacts: Yes Hand Dominance: Right Upper Extremity ROM WFL, pt does have tremors, L significantly worse than R. Pt states that the tremors just recently started in his R and he has noticed some difficulty with holding cup still when taking a drink. Upper Extremity Strength 3+/5 L shoulder 4/5 R shoulder ADL-Treatment Eating (QC): 4 On/Off Footwear (QC): 2 Toileting Hygiene (QC): 1 Pt is very talkative, requires redirection back to task. Supine<>sit: SBA and extra time. Pt often distracted by lines/tubes. Mod-max a to don bilateral shoes. He stood with CGA, very heavy reliance with BUE support on walker. At this time, pt would be unable to remove unilateral UE support to complete functional tasks. He reports more pain in RLE, however appears to be placing majority of weight through right. He was able to take a few side steps towards the HOB with CGA. Difficulty noted with advancing LLE. O2 drops to mid 80's with activity but quickly returns once sitting. Education OT Patient Education: Correct positioning, Modified ADL techniques, Purpose of tx/functional activities, Safety issues, Transfer techniques Teaching Recipient: Patient Teaching Methods: Demonstration, Discussion Response to Teaching: Verbalize Understanding, Reinforcement Needed OT Jail Goals Manager Exchange Goals Time Frame: May 21, 2022 Eating (QC): 5 Oral Hygiene (QC): 5 Toileting Hygiene (QC): 4 Shower/Bathe Self (QC): 4 Upper Body Dressing (QC): 4 Lower Body Dressing (QC): 4 On/Off Footwear (QC): 4 Additional Goals: 1-Demonstrate ADL Tasks, 2-Verbalize Understanding, 3- ImproveStrength/[place] 1=Demonstrate adherence to instructed precautions during ADL tasks. 2=Patient will verbalize/demonstrate understanding of assistive devices/modifications for ADL. 3=Patient will improve strength/tolerance for activity to enable patient to perform ADL's. OT Education/Plan Problem List/Assessment Assessment: Decreased Activ Tolerance, Decreased Safety Aware, Decreased UE Strength, Impaired Cognition, Impaired Funct Balance, Impaired Self-Care Skills Discharge Recommendations Plan/Recommendations: Continue POC Treatment Plan/Plan of Care Treatment,Training & Education: Yes Patient would benefit from OT for education, treatment and training to promote independence in ADL's, mobility, safety and/or upper extremity function for ADL's. Plan of Care: ADL Retraining, Cognitive Retraining, Functional Mobility, Group Exercise/Act as Ind, UE Funct Exercise/Act, W/C Management Training Treatment Duration: May 21, 2022 Frequency: 3 times per week (3-5x/week ) Estimated Hrs Per Day: .25 hour per day Agreement: Yes Rehab Potential: Guarded Time Start Time: 13:51 Stop Time: 14:17 DATE: May 07, 2022 Total Time Billed (hr/min): 26 Billed Treatment Time 1 visit EVM (10 min) FA (16 min) Shama Chris OT May 07, 2022 14:32
--- NOTE | 2022-05-07 14:40 | Progress Note ---
SUNIL PARTIDA I 05/07/22 1440: Subjective Date Seen by a Provider: May 07, 2022 Time Seen by a Provider: 10:35 Subjective/Events-last exam Jesse Luis is a 76 YoM with PMH of Arthritis, GI bleed secondary to NSAID use, and a fib, admitted to the ICU yesterday for SVT following uncomplicated L TKA. Last night, he felt like his heart was beating out of his chest, but feels better this morning. Hasn't had much to eat this morning. Was incontinent of urine last night, and was given a catheter. Urinates 3x/night at baseline. No subjetive fevers or knee pain at the operative site. Review of Systems General: No Chills, No Night Sweats, No Fatigue, No Malaise HEENT: No Head Aches, No Eye Pain, No Ear Pain, No Dysphasia, No Sinus Congestion, No Post Nasal Drip, No Sore Throat Pulmonary: No Dyspnea, No Cough, No Pleuritic Chest Pain Cardiovascular: Palpitations Gastrointestinal: No: Nausea, Vomiting, Abdominal Pain, Diarrhea, Constipation, Melena, Hematochezia Genitourinary: No Dysuria, No Frequency, No Incontinence, No Hematuria, No Retention Musculoskeletal: No: other, neck pain, shoulder pain, arm pain, back pain, hand pain, leg pain, foot pain Neurological: No: Weakness, Numbness, Incoordination, Change in speech, Confusion, Seizures, Other Focused Exam Lactate Level 05/06/22 21:00: Lactic Acid Level 2.04*H 05/06/22 23:15: Lactic Acid Level 1.24 Objective Exam Last Set of Vital Signs Vital Signs Date Time Temp Pulse Resp B/P (MAP) Pulse Ox O2 Delivery O2 Flow Rate FiO2 05/07/22 13:21 68 05/07/22 11:00 129/72 (91) 95 Room Air 05/07/22 07:43 36.7 Capillary Refill : I&O Intake and Output 05/07/22 00:00 Intake Total 150 ml Output Total 200 ml Balance -50 ml Intake Oral 100 ml IV Total 50 ml Output Urine Total 200 ml Daily Weight Change No General: Alert, Oriented X3, Cooperative, No Acute Distress HEENT: Atraumatic, PERRLA Neck: Supple, No JVD, No Thyromegaly Lungs: Clear to Auscultation, Normal Air Movement Heart: Regular Rate, Normal S1, Normal S2, No Murmurs Abdomen: Normal Bowel Sounds, Soft, No Tenderness Extremities: No Clubbing, No Cyanosis, No Edema, Normal Pulses, No Tenderness/Swelling Skin: No Rashes, No Breakdown, No Significant Lesion Neuro: Other (Intention tremor noted in both upper extremeties L>R) Psych/Mental Status: Mental Status NL, Mood NL Results Lab Laboratory Tests 05/06/22 18:58: White Blood Count 13.7H, Red Blood Count 5.06, Hemoglobin 14.4, Hematocrit 44, Mean Corpuscular Volume 87, Mean Corpuscular Hemoglobin 29, Mean Corpuscular Hemoglobin Concent 33, Red Cell Distribution Width 13.4, Platelet Count 219, Mean Platelet Volume 10.5, Immature Granulocyte % (Auto) 0, Neutrophils (%) (Auto) 93H, Lymphocytes (%) (Auto) 5L, Monocytes (%) (Auto) 2, Eosinophils (%) (Auto) 0, Basophils (%) (Auto) 0, Neutrophils # (Auto) 12.7H, Lymphocytes # (Auto) 0.7L, Monocytes # (Auto) 0.2, Eosinophils # (Auto) 0.0, Basophils # (Auto) 0.0, Immature Granulocyte # (Auto) 0.1, Neutrophils % (Manual) 92, Lymphocytes % (Manual) 5, Monocytes % (Manual) 3, Blood Morphology Comment NORMAL, Sodium Level 138, Potassium Level 4.8, Chloride Level 108H, Carbon Dioxide Level 18L, Anion Gap 12, Blood Urea Nitrogen 15, Creatinine 1.05, Estimat Glomerular Filtration Rate 74, BUN/Creatinine Ratio 14, Glucose Level 165H, Calcium Level 9.0, Corrected Calcium 9.4, Total Bilirubin 0.3, Aspartate Amino Transf (AST/SGOT) 16, Alanine Aminotransferase (ALT/SGPT) 19, Alkaline Phosphatase 62, Troponin I < 0.028, Total Protein 6.1L, Albumin 3.5 05/06/22 21:00: Lactic Acid Level 2.04*H 05/06/22 23:15: Lactic Acid Level 1.24 05/07/22 04:31: Blood Gas Puncture Site RIGHT RADIAL, Blood Gas Patient Temperature 36.9, Arterial Blood pH 7.40, Arterial Blood Partial Pressure CO2 35, Arterial Blood Partial Pressure O2 81, Arterial Blood HCO3 22L, Arterial Blood Total CO2 22.6, Arterial Blood Oxygen Saturation 95, Arterial Blood Base Excess -2.6L, Otoniel Test YES-POS, Blood Gas Ventilator Setting NA, Blood Gas Inspired Oxygen NA 05/07/22 04:45: White Blood Count 14.1H, Red Blood Count 4.49, Hemoglobin 12.8L, Hematocrit 39L, Mean Corpuscular Volume 88, Mean Corpuscular Hemoglobin 29, Mean Corpuscular Hemoglobin Concent 33, Red Cell Distribution Width 13.4, Platelet Count 183, Mean Platelet Volume 10.9, Immature Granulocyte % (Auto) 0, Neutrophils (%) (Auto) 84H, Lymphocytes (%) (Auto) 9L, Monocytes (%) (Auto) 7, Eosinophils (%) (Auto) 0, Basophils (%) (Auto) 0, Neutrophils # (Auto) 11.9H, Lymphocytes # (Auto) 1.2, Monocytes # (Auto) 1.0, Eosinophils # (Auto) 0.0, Basophils # (Auto) 0.0, Immature Granulocyte # (Auto) 0.1, Prothrombin Time 14.3, INR Comment 1.1, Activated Partial Thromboplast Time 29, Sodium Level 141, Potassium Level 4.4, Chloride Level 111H, Carbon Dioxide Level 20L, Anion Gap 10, Blood Urea Nitrogen 16, Creatinine 0.91, Estimat Glomerular Filtration Rate 87, BUN/Creatinine Ratio 18, Glucose Level 139H, Calcium Level 9.0, Corrected Calcium 9.6, Phosphorus Level 2.8, Magnesium Level 2.0, Total Bilirubin 0.3, Aspartate Amino Transf (AST /SGOT) 13, Alanine Aminotransferase (ALT/SGPT) 16, Alkaline Phosphatase 57, Troponin I 0.059H, Total Protein 5.4L, Albumin 3.2 Microbiology 05/06/22 MRSA Screen - Final, Complete MRSA not isolated Assessment/Plan Assessment/Plan Assess & Plan/Chief Complaint Jesse Luis is a 76 YoM admitted to the ICU for SVT. HD#2 and is much improved. A fib with RVR - Back in sinus rhythm - Off Dilt drip, now on oral dilt - Continue to monitor - Cardiology consulted L TKA - Continue working with PT - Monitoring for signs of infection. 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 - Required 4 units in 09/22 - HGB 14.4 (05/06) -> 12.8 (05/07) - Continue to monitor for signs of rebleed - on PPI Orthostatic hypotension - continue to monitor Pneumonia - CXR showing atalectasis - WBC 14.1 - Cefepime covering for potential pneumonia Deposition: to Floor Clinical Quality Measures DVT/VTE Risk/Contraindication: Contraindications-Mechi: Other *list below* Other: OR BRIDGETT OLEARY DO 05/08/22 0454: Subjective Review of Systems General: Fatigue, Malaise Objective Exam General: Alert, Oriented X3, Cooperative Lungs: Clear to Auscultation Heart: Regular Rate Psych/Mental Status: Mental Status NL Supervisory-Addendum Brief Verification & Attestation Participated in pt care: history, MDM, physical Personally performed: exam, history, MDM, supervision of care Care discussed with: Medical Student Procedures: n/a Results interpretation: Verified all documentation Verification and Attestation of Medical Student E/M Service A medical student performed and documented this service in my presence. I reviewed and verified all information documented by the medical student and made modifications to such information, when appropriate. I personally performed the physical exam and medical decision making. Bridgett Oleary, May 08, 2022,04:54 SUNIL PARTIDA I May 07, 2022 14:40 BRIDGETT OLEARY DO May 08, 2022 04:54
[2022-05-07] MEDS ORDERED: RT-ALBUTEROL/IPRATROPIUM 3 ML (DUONEB) VIAL INH PRN (16:00)
[2022-05-07] MEDS ORDERED: NON-FORMULARY MEDICATION 1 EA EA (Flecainide Acetate 50 MG) PO SCH (21:00)
[2022-05-07] MEDS: FLECAINIDE 100 MG (TAMBOCOR) TAB PO SCH (22:19)
[2022-05-07] MEDS: ENOXAPARIN 40 MG/0.4 ML (LOVENOX) SYR SC SCH (22:22)
[2022-05-08] MEDS: LORazepam INJ 2 MG/ML (ATIVAN) VIAL IM PRN ×2 (00:31→08:17)
[2022-05-08] MEDS: CEFEPIME INJECTION 1,000 MG in NS (IVPB) 50 ML IV SCH ×4 (02:55→20:44)
[2022-05-08] MEDS: PROPRANOLOL 20 MG (INDERAL) TABLET PO SCH ×3 (05:06→22:09)
[2022-05-08 05:11] LABS: BASOPHILS # (AUTO) 0.1 10^3/uL (0.0-0.1); BASOPHILS % (AUTO) 1 % (0-10); EOSINOPHILS # (AUTO) 0.1 10^3/uL (0.0-0.3); EOSINOPHILS % (AUTO) 1 % (0-10); HEMATOCRIT 42 % (40-54); HEMOGLOBIN 13.8 g/dL (13.3-17.7); LYMPHOCYTES % (AUTO) 15 % (12-44); MEAN CORPUSCULAR HEMOGLOBIN 28 pg (25-34); MEAN CORPUSCULAR HGB CONC 33 g/dL (32-36); MEAN CORPUSCULAR VOLUME 87 fL (80-99); MEAN PLATELET VOLUME 10.7 fL (9.0-12.2); MONOCYTES # (AUTO) 1.2 10^3/uL (0.0-1.0); MONOCYTES % (AUTO) 9 % (0-12); NEUTROPHILS # (AUTO) 9.7 10^3/uL (1.8-7.8); NEUTROPHILS % (AUTO) 74 % (42-75); PLATELET COUNT 224 10^3/uL (130-400); WHITE BLOOD COUNT 13.1 10^3/uL (4.3-11.0)
[2022-05-08 05:35] LABS: ALBUMIN 3.7 GM/DL (3.2-4.5); BILIRUBIN,TOTAL 0.6 MG/DL (0.1-1.0); CALCIUM 8.9 MG/DL (8.5-10.1); CREATININE SERUM 0.87 MG/DL (0.60-1.30); MAGNESIUM 1.7 MG/DL (1.6-2.4); POTASSIUM 4.2 MMOL/L (3.6-5.0); TOTAL PROTEIN 6.2 GM/DL (6.4-8.2)
[2022-05-08] MEDS ORDERED: DexMEDEtomidine 250 ML DRIP 250 ML IV ONE (08:04)
[2022-05-08] MEDS: DexMEDEtomidine 250 ML DRIP 250 ML IV SCH (08:07)
--- NOTE | 2022-05-08 08:07 | Tele-ICU Progress Note ---
Subjective Date Seen by a Provider: May 08, 2022 Time Seen by a Provider: 11:21 Subjective/Events-last exam (Tele-ICU Physician , consultation) Available chart/ vitals / labs / Images reviewed H&P is from ER notes Patient's information available about PMH, allergy reviewed in EMR. ROS as per chart and RN report Video assessment done using teleICU camera, rest of exam as per RN Discussed with RN. He is a 76-year-old white male apparently half-way patient reportedly had a uncomplicated left knee replacement at [facility] in [place] and a 4 hours after the surgery reportedly found to have a atrial fibrillation and with rapid ventricular rate. Subsequently he required ICU admission and cardiology consultation hence he is transferred to [facility] via [facility] in [place]. Currently his heart rate is controlled on 5 mg of Cardizem drip however his heart rate going up and down suggestive of for sinus node dysfunction. Patient already seen by cardiology. 05/08/22. today he is confused and refusing po pills. Just now restarted his iv. HR is 145/mt with afib rvr. Impression 1. Status post left knee replacement 2. Paroxysmal atrial fibrillation with possible sinus node dysfunction, currently has RVR 3. History of hypertension 4. History of hyperlipidemia 5. Type 2 diabetes mellitus. 6. Confusion/ ams probably is due to ICU psychosis Recommendations 1. Management of atrial fibrillation per cardiology. Anticoagulation could not be given as patient recently had a upper GI bleed secondary to the use of aspirin and NSAID. However will give one dose of lopressor 5mg iv now. 2. Diabetes management per primary care 3. Echocardiogram 4. Care coordination with bedside consultants and primary care physician. 5. Physical therapy. 6. start precedex. 7. Continue monitor mental status. Care coordination with bedside consultants and primary care physician. Sepsis Event Evaluation Height, Weight, BMI Height: '" Weight: lbs. oz. kg; 29.79 BMI Method: Focused Exam Lactate Level 05/06/22 21:00: Lactic Acid Level 2.04*H 05/06/22 23:15: Lactic Acid Level 1.24 Exam Exam Patient acknowledged, consented, and participated in this virtual visit which was conducted using real time audio/video Vital Signs Date Time Temp Pulse Resp B/P (MAP) Pulse Ox O2 Delivery O2 Flow Rate FiO2 05/08/22 06:39 97 Room Air 05/08/22 06:00 146 135/116 (122) Room Air 05/08/22 05:36 36.4 05/08/22 05:24 161 175/105 (128) 94 Room Air 05/08/22 05:06 37.8 05/08/22 04:00 37.0 144 20 125/97 (106) 97 Room Air 05/08/22 03:54 97 Room Air 05/08/22 03:20 144 125/97 (106) 92 Room Air 05/08/22 02:00 135 140/119 (126) Room Air 05/08/22 01:00 141 05/08/22 00:42 62 156/97 (116) Room Air 05/08/22 00:00 96 Room Air 05/08/22 00:00 37.3 73 18 181/83 (115) 95 Room Air 05/07/22 23:00 87 Room Air 05/07/22 22:00 89 148/71 (96) 94 Room Air 05/07/22 21:30 82 144/77 (99) 93 Room Air 05/07/22 20:48 87 111/88 (96) Room Air 05/07/22 20:43 156 120/100 05/07/22 20:00 97 Room Air 05/07/22 19:45 97 Room Air 05/07/22 19:42 36.5 05/07/22 19:00 71 106/84 (91) Room Air 05/07/22 19:00 71 05/07/22 18:00 81 144/97 (113) 97 Room Air 05/07/22 17:00 70 191/92 (125) 96 Room Air 05/07/22 16:00 69 151/76 (101) 95 Room Air 05/07/22 16:00 96 Room Air 05/07/22 15:32 36.4 05/07/22 15:27 95 Room Air 0.00 05/07/22 15:00 64 117/82 (94) 97 Room Air 05/07/22 14:00 68 107/78 (88) 96 Room Air 05/07/22 13:21 68 05/07/22 13:00 76 117/76 (90) 96 Room Air 05/07/22 12:03 147 05/07/22 12:00 94 Room Air 05/07/22 12:00 79 131/67 (88) 96 Room Air 05/07/22 11:36 92 05/07/22 11:30 149 05/07/22 11:00 78 129/72 (91) 95 Room Air 05/07/22 10:00 88 104/87 (93) 95 Room Air 05/07/22 09:00 75 110/80 (90) 100 Room Air I & O 05/08/22 07:00 Intake Total 2000 ml Output Total 2100 ml Balance -100 ml Height & Weight Height: '" Weight: lbs. oz. kg; 29.79 BMI Method: General Appearance: No Apparent Distress, WD/WN, Chronically ill HEENT: PERRL/EOMI, Normal ENT Inspection, Pharynx Normal Neck: Full Range of Motion, Normal Inspection, Non Tender, Supple, Carotid Bruit Respiratory: Chest Non Tender, Lungs Clear, Normal Breath Sounds, No Accessory Muscle Use, No Respiratory Distress Cardiovascular: No Edema, No Gallop, No JVD, No Murmur, Normal Peripheral Pulses, Systolic Murmur, Tachycardia Capillary Refill: Less Than 3 Seconds Extremity: Normal Capillary Refill, Normal Inspection, Normal Range of Motion (except left leg), Non Tender, No Calf Tenderness, No Pedal Edema Neurologic/Psychiatric: Alert, Oriented x3, No Motor/Sensory Deficits, Normal Mood/Affect Skin: Normal Color, Warm/Dry Lymphatic: No Adenopathy Other comments PE PER RN Results Lab Laboratory Tests 05/06/22 18:58 05/07/22 04:45 05/08/22 04:26 Assessment/Plan Assessment/Plan ABOVE Critical Care: Critically Ill Patient Time spent with patient (mins): 25 YOBANY BASSETT MD May 08, 2022 08:07
[2022-05-08] MEDS ORDERED: meTOprolol 5 MG/5 ML (LOPRESSOR) VIAL IV ONE (08:15)
[2022-05-08] MEDS: SENNOSIDES 8.6 MG (SENOKOT) TAB PO SCH ×2 (09:21→22:08)
[2022-05-08] MEDS: DOCUSATE SODIUM 100 MG (COLACE) CAP PO SCH ×2 (09:21→22:08)
[2022-05-08] MEDS: meTOprolol TARTRATE 50 MG (LOPRESSOR) TAB PO SCH ×2 (09:21→22:08)
[2022-05-08] MEDS: FLECAINIDE 100 MG (TAMBOCOR) TAB PO SCH ×2 (09:22→22:08)
--- NOTE | 2022-05-08 10:28 | Progress Note ---
SUNIL PARTIDA I 05/08/22 1028: Subjective Date Seen by a Provider: May 08, 2022 Time Seen by a Provider: 10:18 Subjective/Events-last exam Mr. Luis is a 76 year old male admitted for SVT s/p L TKA. Last night he had multiple episodes of SVT, initially treated with Cardizem until his line went ba d. This was followed by entering an atrial flutter rhythm around 0100, which was monitored. Per nursing, he had a few seconds of asystole, followed by spontaneous return with bradycardia during the night as well. He also was incontinent of urine and was combative to the nursing staff upon changing the sheets. Currently he is sedated on precedex with a new IV, and had a baumann placed which drained ~ 1L of urine. Review of Systems Genitourinary: Incontinence, Retention Unable to obtain due to sedation Focused Exam Lactate Level 05/06/22 21:00: Lactic Acid Level 2.04*H 05/06/22 23:15: Lactic Acid Level 1.24 Objective Exam Last Set of Vital Signs Vital Signs Date Time Temp Pulse Resp B/P (MAP) Pulse Ox O2 Delivery O2 Flow Rate FiO2 05/08/22 10:00 75 113/64 (80) 96 Nasal Cannula 2.00 05/08/22 08:00 36.3 05/08/22 04:00 20 Capillary Refill : Less Than 3 Seconds I&O Intake and Output 05/08/22 00:00 Intake Total 1980 ml Output Total 2325 ml Balance -345 ml Intake Oral 1880 ml IV Total 100 ml Output Urine Total 2325 ml # Bowel Movements 1 General: Other (Supine and Sedated, appears to be resting comfortably) HEENT: Atraumatic, PERRLA Neck: Supple, No JVD Lungs: Clear to Auscultation Heart: Regular Rate (at time of observation) Abdomen: Normal Bowel Sounds, Soft, No Tenderness, No Hepatosplenomegaly, No Ma sses Extremities: No Edema Neuro: Other (Sedated, slightly rouses to name, responsive to noxious stimuli) Results Lab Laboratory Tests 05/08/22 04:26: White Blood Count 13.1H, Red Blood Count 4.87, Hemoglobin 13.8, Hematocrit 42, Mean Corpuscular Volume 87, Mean Corpuscular Hemoglobin 28, Mean Corpuscular H emoglobin Concent 33, Red Cell Distribution Width 13.6, Platelet Count 224, Mean Platelet Volume 10.7, Immature Granulocyte % (Auto) 1, Neutrophils (%) (Auto) 74, Lymphocytes (%) (Auto) 15, Monocytes (%) (Auto) 9, Eosinophils (%) (Auto) 1, Basophils (%) (Auto) 1, Neutrophils # (Auto) 9.7H, Lymphocytes # (Auto) 2.0, Monocytes # (Auto) 1.2H, Eosinophils # (Auto) 0.1, Basophils # (Auto) 0.1, Immature Granulocyte # (Auto) 0.1, Sodium Level 137, Potassium Level 4.2, Chlo ride Level 107, Carbon Dioxide Level 21, Anion Gap 9, Blood Urea Nitrogen 12, Creatinine 0.87, Estimat Glomerular Filtration Rate 89, BUN/Creatinine Ratio 14, Glucose Level 99, Calcium Level 8.9, Corrected Calcium 9.1, Magnesium Level 1.7, Total Bilirubin 0.6, Aspartate Amino Transf (AST/SGOT) 22, Alanine Aminotransferase (ALT/SGPT) 14, Alkaline Phosphatase 70, Total Protein 6.2L, Albumin 3.7 Microbiology 05/06/22 Blood Culture - Preliminary, Resulted No growth 05/06/22 MRSA Screen - Final, Complete MRSA not isolated Assessment/Plan Assessment/Plan Assess & Plan/Chief Complaint Jesse Luis is a 76 YoM admitted to the ICU for SVT. Today is HD#3 and he is sedated with precedex and experiencing recurrent paroxysmal atrial fibrillation and a brief periods of asystole with spontaneous return to sinus rhythm. Paroxysmal A fib with RVR - Several periods of SVT overnight. 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 - After discussion with rhianna and BELÉN, his family wishes that goals of care remain consistent with DNR status and pacemaker placement was refused. - Will continue to monitor and treat according to DNR status. L TKA - Temporarily suspend working with PT for heart - Monitoring for signs of infection. 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 (Banana bag) Overflow incontinence secondary to BPH - Baumann placed, large volume of urine released. 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 (improving) - Required 4 units in 09/22 - HGB improving 12.8 (05/07) -> 13.1 (05/08) - Continue to monitor - on PPI HTN - borderline hypotensive - monitor BP and EKG HLD - monitor Pneumonia - CXR showing atalectasis - WBC 14.1 - Cefepime covering for potential pneumonia Diabetes mellitus - monitoring glucose levels Deposition: continue ICU cares Clinical Quality Measures DVT/VTE Risk/Contraindication: Contraindications-Mechi: Other *list below* Other: OR BRIDGETT OLEARY DO 05/09/22 0450: Assessment/Plan Assessment/Plan Assess & Plan/Chief Complaint In-depth conversation with family regarding pacemaker and living will Supervisory-Addendum Brief Verification & Attestation Participated in pt care: history, MDM, physical Personally performed: exam, history, MDM, supervision of care Care discussed with: Medical Student Procedures: n/a Results interpretation: Verified all documentation Verification and Attestation of Medical Student E/M Service A medical student performed and documented this service in my presence. I reviewed and verified all information documented by the medical student and made modifications to such information, when appropriate. I personally performed the physical exam and medical decision making. Bridgett Oleary, May 09, 2022,04:50 SUNIL PARTIDA I May 08, 2022 10:28 BRIDGETT OLEARY DO May 09, 2022 04:50
--- NOTE | 2022-05-08 11:20 | Cardiology Progress Note ---
Subjective Date Seen by Provider: May 08, 2022 Time Seen by Provider: 11:15 Subjective/Events-last exam Patient is laying down in bed, receives Precedex, sedated No new complaint Review of Systems General: No Chills, No Night Sweats, No Fatigue, No Malaise, No Appetite, No Other HEENT: No Head Aches, No Visual Changes, No Eye Pain, No Ear Pain, No Dysphasia, No Sinus Congestion, No Post Nasal Drip, No Sore Throat, No Other Pulmonary: No Dyspnea, No Cough, No Pleuritic Chest Pain, No Other Cardiovascular: No: Chest Pain, Palpitations, Orthopnea, Paroxysmal Noc. Dyspnea, Edema, Lt Headedness, Other Focused Exam Lactate Level 05/06/22 21:00: Lactic Acid Level 2.04*H 05/06/22 23:15: Lactic Acid Level 1.24 Objective-Cardiology Exam Last Set of Vital Signs Vital Signs 05/08/22 05/08/22 04:00 10:00 Pulse 75 Resp 20 B/P (MAP) 113/64 (80) Pulse Ox 96 O2 Delivery Nasal Cannula O2 Flow Rate 2.00 I&O Intake and Output 05/08/22 00:00 Intake Total 1980 ml Output Total 2325 ml Balance -345 ml Intake Oral 1880 ml IV Total 100 ml Output Urine Total 2325 ml # Bowel Movements 1 General: Alert HEENT: Atraumatic, PERRLA Neck: Supple, No JVD, No Thyromegaly Lungs: Clear to Auscultation Heart: Regular Rate, Normal S1, Normal S2 Abdomen: Normal Bowel Sounds, Soft, No Tenderness Extremities: No Clubbing, No Cyanosis, No Edema, Normal Pulses, No Tenderness/Swelling Skin: No Rashes, No Breakdown, No Significant Lesion Neuro: Other (Intention tremor noted in both upper extremeties L>R) Psych/Mental Status: Other (Was agitated earlier, received Precedex today) Results Lab Laboratory Tests 05/08/22 04:26 A/P-Cardiology Admission Diagnosis Paroxysmal atrial fibrillation Sinus node dysfunction Hypertension Hyperlipidemia. Assessment/Plan Paroxysmal atrial fibrillation alternating with sinus node dysfunction Tacky bradycardia episode Had earlier today 3.5 seconds pause and 4 seconds pause, had few episodes of bradycardia with a heart rate in the 20s Currently back in sinus rhythm. Tolerating current medications well. I will discuss with Dr. Jimenez regarding his management. He would benefit from pacemaker placement, might be good candidate for leadless pacemaker. [id number] score 4. Patient is unable to tolerate oral anticoagulation due to recent GI bleed. Status post knee replacement. Done at [facility]. Recovering Starting physical therapy 2D echo from [facility] reported to have left atrial enlargement, mild LVH with ejection fraction 60%, grade 3 diastolic dysfunction, pulmonary hypertension with PA pressure 50 to 55 mmHg Hypertension, currently borderline hypotensive, monitor blood pressure Hyperlipidemia, monitor lipids. Essential tremor, starting low-dose beta-blockers and evaluate tolerance and response Diabetes mellitus, followed and managed by primary care physician Status post recent GI bleed secondary to the use of aspirin and NSAID. Requiring blood transfusion. Continue to monitor LORRIE FULTON MD May 08, 2022 11:19
--- NOTE | 2022-05-08 11:29 | Physical Therapy Progress Note ---
Therapy Progress Note Patient currently on Hold per RN due to decline in medical status. PT will monitor patient status and resume when he is medically stable and able to actively participate. RUBENS GAGNON PT May 08, 2022 11:29
--- NOTE | 2022-05-08 12:54 | Occ Therapy Progress Note ---
Therapy Progress Note Unable to wake pt. Will check on pt at next available time. TANIYA VARGHESE May 08, 2022 12:54
[2022-05-08] MEDS ORDERED: THIAMINE INJECTION 100 MG in NS (IVPB) 50 ML IV SCH (15:45)
[2022-05-08] MEDS ORDERED: meTOprolol 5 MG/5 ML (LOPRESSOR) VIAL ONE (15:49)
[2022-05-08] MEDS: meTOprolol 5 MG/5 ML (LOPRESSOR) VIAL IV PRN (15:51)
[2022-05-08] MEDS ORDERED: meTOprolol 5 MG/5 ML (LOPRESSOR) VIAL IV PRN (16:00)
[2022-05-08] MEDS: THIAMINE INJECTION 100 MG, FOLIC ACID INJECTION 1 MG, VITAMIN MULTI INJECTION 10 ML, MA... IV SCH ×5 (16:48)
[2022-05-08] MEDS: ENOXAPARIN 40 MG/0.4 ML (LOVENOX) SYR SC SCH (20:44)
[2022-05-09] MEDS: DexMEDEtomidine 250 ML DRIP 250 ML IV SCH (00:35)
[2022-05-09] MEDS: CEFEPIME INJECTION 1,000 MG in NS (IVPB) 50 ML IV SCH ×4 (03:05→20:17)
[2022-05-09 04:45] LABS: BASOPHILS % (AUTO) 1 % (0-10); EOSINOPHILS # (AUTO) 0.1 10^3/uL (0.0-0.3); EOSINOPHILS % (AUTO) 2 % (0-10); HEMATOCRIT 35 % (40-54); HEMOGLOBIN 11.4 g/dL (13.3-17.7); LYMPHOCYTES # (AUTO) 1.1 10^3/uL (1.0-4.0); LYMPHOCYTES % (AUTO) 14 % (12-44); MEAN CORPUSCULAR HEMOGLOBIN 28 pg (25-34); MEAN CORPUSCULAR HGB CONC 32 g/dL (32-36); MEAN CORPUSCULAR VOLUME 88 fL (80-99); MEAN PLATELET VOLUME 10.3 fL (9.0-12.2); MONOCYTES # (AUTO) 0.6 10^3/uL (0.0-1.0); MONOCYTES % (AUTO) 7 % (0-12); NEUTROPHILS # (AUTO) 6.5 10^3/uL (1.8-7.8); NEUTROPHILS % (AUTO) 77 % (42-75); PLATELET COUNT 144 10^3/uL (130-400); WHITE BLOOD COUNT 8.4 10^3/uL (4.3-11.0)
[2022-05-09 05:13] LABS: ALBUMIN 2.9 GM/DL (3.2-4.5); BILIRUBIN,TOTAL 0.5 MG/DL (0.1-1.0); CALCIUM 8.3 MG/DL (8.5-10.1); CREATININE SERUM 0.76 MG/DL (0.60-1.30); MAGNESIUM 4.2 MG/DL (1.6-2.4); POTASSIUM 4.3 MMOL/L (3.6-5.0); TOTAL PROTEIN 5.4 GM/DL (6.4-8.2)
[2022-05-09] MEDS: PROPRANOLOL 20 MG (INDERAL) TABLET PO SCH ×2 (06:52→13:48)
--- NOTE | 2022-05-09 07:47 | Progress Note ---
SUNIL PARTIDA I 05/09/22 0747: Subjective Date Seen by a Provider: May 09, 2022 Time Seen by a Provider: 08:30 Subjective/Events-last exam Mr. Luis is a 76 year old male with a PMH of arthritis, GI Bleed, and Afib admitted to ICU for SVT s/p uncomplicated L TKA. Today is HD#4. Per nursing, yesterday afternoon he became more combative and required a higher dose of Precedex for sedation. Yesterday there was extensive discussion over pacemaker placement, which was declined. Overnight there were no new events. He is cognizant this morning, and speaks quietly and slowly. He reports feeling very tired, and doesn't remember the events of the past two days. He says that he hasn't had alcohol for 2 years, and denies fevers, night sweats, anxiety, and nausea. He says his heart feels fine currently and notes that he is feeling postoperative pain and achiness in his knee. He is amenable to resume physical and occupational therapy for his knee. Review of Systems General: No Chills, No Night Sweats, No Fatigue, No Malaise, No Appetite, No Other HEENT: No Head Aches, No Visual Changes, No Eye Pain, No Ear Pain, No Dysphasia, No Sinus Congestion, No Post Nasal Drip, No Sore Throat, No Other Pulmonary: No Dyspnea, No Cough, No Pleuritic Chest Pain, No Other Cardiovascular: Palpitations, Orthopnea, Paroxysmal Noc. Dyspnea, Edema, Lt Headedness, Other; No: Chest Pain Gastrointestinal: Diarrhea, Constipation, Melena, Hematochezia, Other; No: Nausea, Vomiting, Abdominal Pain Genitourinary: No Dysuria, No Frequency, No Incontinence, No Hematuria, No Retention, No Other Musculoskeletal: No: other, neck pain, shoulder pain, arm pain, back pain, hand pain, leg pain, foot pain Neurological: No: Weakness, Numbness, Incoordination, Change in speech, Confusion, Seizures, Other Focused Exam Lactate Level 05/06/22 21:00: Lactic Acid Level 2.04*H 05/06/22 23:15: Lactic Acid Level 1.24 Objective Exam Last Set of Vital Signs Vital Signs Date Time Temp Pulse Resp B/P (MAP) Pulse Ox O2 Delivery O2 Flow Rate FiO2 1/6/23 06:00 56 105/56 (72) 99 Nasal Cannula 2.00 05/09/22 00:00 36.7 05/08/22 04:00 20 Capillary Refill : Less Than 3 Seconds I&O Intake and Output 05/09/22 00:00 Intake Total 800 ml Output Total 1525 ml Balance -725 ml Intake Oral 600 ml IV Total 200 ml Output Urine Total 1525 ml # Voids 2 General: Alert, Cooperative, Other (Sitting in chair beside bed. ) HEENT: Atraumatic, PERRLA Neck: Supple, No JVD, No Thyromegaly Lungs: Clear to Auscultation, Normal Air Movement Heart: Normal S1, Normal S2, Other (Bradycardic, Regular rhythm, S1 S2) Abdomen: Normal Bowel Sounds, Soft Extremities: No Edema, Other (L knee tenderness) Psych/Mental Status: Mental Status NL (Speaks quietly, is oriented to place after redirection) Results Lab Laboratory Tests 05/08/22 12:16: Glucometer 83 05/08/22 16:40: Glucometer 89 05/09/22 00:47: Glucometer 135H 05/09/22 04:13: White Blood Count 8.4, Red Blood Count 4.03L, Hemoglobin 11.4L, Hematocrit 35L, Mean Corpuscular Volume 88, Mean Corpuscular Hemoglobin 28, Mean Corpuscular Hemoglobin Concent 32, Red Cell Distribution Width 13.2, Platelet Count 144, Mean Platelet Volume 10.3, Immature Granulocyte % (Auto) 0, Neutrophils (%) (Auto) 77H, Lymphocytes (%) (Auto) 14, Monocytes (%) (Auto) 7, Eosinophils (%) (Auto) 2, Basophils (%) (Auto) 1, Neutrophils # (Auto) 6.5, Lymphocytes # (Auto) 1.1, Monocytes # (Auto) 0.6, Eosinophils # (Auto) 0.1, Basophils # (Auto) 0.0, Immature Granulocyte # (Auto) 0.0, Sodium Level 134L, Potassium Level 4.3, Chloride Level 107, Carbon Dioxide Level 21, Anion Gap 6, Blood Urea Nitrogen 21H, Creatinine 0.76, Estimat Glomerular Filtration Rate 93, BUN/Creatinine Ratio 28, Glucose Level 130H, Calcium Level 8.3L, Corrected Calcium 9.2, Magnesium Level 4.2H, Total Bilirubin 0.5, Aspartate Amino Transf (AST/SGOT) 21, Alanine Aminotransferase (ALT/SGPT) 13, Alkaline Phosphatase 46, Total Protein 5.4L, Albumin 2.9L Microbiology 05/06/22 Blood Culture - Preliminary, Resulted No growth 05/06/22 MRSA Screen - Final, Complete MRSA not isolated Assessment/Plan Assessment/Plan Assess & Plan/Chief Complaint Jesse Luis is a 76 YoM PMH of Arthritis, Hx of GIB, and A fib admitted to the ICU for SVT following uncomplicated L TKA. Today is HD#4 and he continues to be borderline hypotensive and oscillates between tachy and naga. 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 - After discussion with daughter in law and DPOA, his family wishes that goals of care remain consistent with DNR status and pacemaker placement was declined - Will continue to monitor and treat according to DNR status. L TKA - Resume PT/OT d/t improvement in clinical condition - Cont monitoring WBC - on cefepime for presumed PNA Tremor and agitation - possible ICU delirium as he denies alcohol use in previous two years, - UE tremor L>R - on beta rigo for A Fib, holding currently due to hypotension - agitation improved after giving Thiamine, folic acid, MTV, Mag sulfate, potassium, and glucose. (Banana bag) yesterday Overflow incontinence secondary to BPH - Continue baumann. - consider tamsulosin 0.4 for alleviating BPH symptoms 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 (improving) - Required 4 units in 09/22 - HGB improving 12.8 (05/07) -> 13.1 (05/08) -> 11.4 (05/09) - Continue to monitor - on PPI HTN - borderline hypotensive - monitor BP and EKG HLD - monitor presumed pneumonia - CXR showing atalectasis - WBC 14.1->8.4 - on Cefepime Diabetes mellitus - monitoring glucose levels Deposition: Transfer to floor Clinical Quality Measures DVT/VTE Risk/Contraindication: Contraindications-Mechi: Other *list below* Other: OR BRIDGETT OLEARY DO 05/09/229: Objective Exam General: Alert, Oriented X3, Cooperative, No Acute Distress Lungs: Clear to Auscultation, Normal Air Movement Heart: Regular Rate, Normal S1, Normal S2, No Murmurs Psych/Mental Status: Mental Status NL, Mood NL Supervisory-Addendum Brief Verification & Attestation Participated in pt care: history, MDM, physical Personally performed: exam, history, MDM, supervision of care Care discussed with: Medical Student Procedures: n/a Results interpretation: Verified all documentation Verification and Attestation of Medical Student E/M Service A medical student performed and documented this service in my presence. I reviewed and verified all information documented by the medical student and made modifications to such information, when appropriate. I personally performed the physical exam and medical decision making. Bridgett Oleary, May 09, 2022,22:29 SUNIL PARTIDA I May 09, 2022 07:47 BRIDGETT OLEARY DO May 09, 2022 22:29
[2022-05-09] MEDS: SENNOSIDES 8.6 MG (SENOKOT) TAB PO SCH ×2 (08:47→20:17)
[2022-05-09] MEDS: DOCUSATE SODIUM 100 MG (COLACE) CAP PO SCH ×2 (08:47→20:17)
[2022-05-09] MEDS: FLECAINIDE 100 MG (TAMBOCOR) TAB PO SCH ×2 (08:47→20:23)
[2022-05-09] MEDS: meTOprolol TARTRATE 50 MG (LOPRESSOR) TAB PO SCH ×2 (08:53→17:32)
[2022-05-09] MEDS ORDERED: FOLIC ACID INJECTION 1 MG in NS (IVPB) 50 ML IV SCH (09:00)
[2022-05-09] MEDS: THIAMINE INJECTION 100 MG, FOLIC ACID INJECTION 1 MG, VITAMIN MULTI INJECTION 10 ML, MA... IV SCH ×5 (09:22)
--- NOTE | 2022-05-09 09:34 | Tele-ICU Progress Note ---
Subjective Date Seen by a Provider: May 09, 2022 Subjective/Events-last exam This virtual visit was conducted using real time audio/video. Thank you for asking us to see this patient for critical illness with agitation yesterday requiring Precedex, parox. afib, SVT, sinus node dysfunction. Possible pna. PE: Calmer. VSS. O2 sat 96% on RA. HEENT: No obvious masses, adenopathy or JVD. Chest: clear to auscultation. CV: SB 50-51S1 S2 No murmur or added sounds. Abd: Non-tender. Bowel sounds Y. : Unremarkable. [place] 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 No obvious focal findings. Extremities: L 1+ edema w recent TKR. Capillary refill < 3 seconds. Skin: unremarkable. Results: Elevated BUN 21, BG 135. Decreased Hb 11.4, Na 134. CXR: clear. Available chart/ vitals / labs / images reviewed. Video assessment done using teleICU camera, rest of exam as per RN. A/P: . Critical Care: critically ill patient. Cont.abx, B6, prop., Fl ecainide, Bret Discussed with RN . Asked RN to reach out to eICU if any questions or concerns later. Time spent with patient/coordination of care with other health professionals (mins): Sepsis Event Evaluation Height, Weight, BMI Height: '" Weight: lbs. oz. kg; 31.17 BMI Method: Focused Exam Lactate Level 05/06/22 21:00: Lactic Acid Level 2.04*H 05/06/22 23:15: Lactic Acid Level 1.24 Exam Exam Patient acknowledged, consented, and participated in this virtual visit which was conducted using real time audio/video Vital Signs Date Time Temp Pulse Resp B/P (MAP) Pulse Ox O2 Delivery O2 Flow Rate FiO2 05/09/22 08:53 Room Air 05/09/22 08:00 58 120/72 (88) 100 Nasal Cannula 2.00 05/09/22 07:48 36.1 05/09/22 07:00 59 117/55 (75) 100 Nasal Cannula 2.00 05/09/22 07:00 59 05/09/22 06:00 56 105/56 (72) 99 Nasal Cannula 2.00 05/09/22 05:00 58 123/57 (79) 96 Nasal Cannula 2.00 05/09/22 04:35 100 Room Air 05/09/22 04:00 60 120/52 (74) 100 Nasal Cannula 2.00 05/09/22 03:00 61 110/52 (71) 100 Nasal Cannula 2.00 05/09/22 02:00 66 102/52 (69) 100 Nasal Cannula 2.00 05/09/22 01:00 62 05/09/22 01:00 64 105/55 (72) 96 Nasal Cannula 2.00 05/09/22 00:00 36.7 05/09/22 00:00 65 103/51 (68) 100 Nasal Cannula 2.00 05/08/22 23:36 100 Room Air 05/08/22 23:00 67 94/56 (69) 94 Nasal Cannula 2.00 05/08/22 22:00 68 97/54 (68) 100 Nasal Cannula 2.00 05/08/22 21:00 71 108/58 (75) 92 Nasal Cannula 2.00 05/08/22 20:00 36.4 05/08/22 20:00 100 Room Air 05/08/22 20:00 75 118/56 (76) 100 Nasal Cannula 2.00 05/08/22 19:00 133 114/58 (76) 100 Nasal Cannula 2.00 05/08/22 19:00 135 05/08/22 18:00 138 94/65 (75) 100 Nasal Cannula 2.00 05/08/22 17:00 141 73/47 (56) 98 Nasal Cannula 2.00 05/08/22 16:24 36.8 05/08/22 16:00 141 93 Nasal Cannula 2.00 05/08/22 16:00 96 Room Air 05/08/22 15:00 85 125/118 (120) 97 Nasal Cannula 2.00 05/08/22 14:00 73 143/130 (134) 90 Nasal Cannula 2.00 05/08/22 13:00 90 05/08/22 13:00 86 92/56 (68) 96 Nasal Cannula 2.00 05/08/22 12:00 98 Room Air 05/08/22 12:00 85 106/59 (75) 99 Nasal Cannula 2.00 05/08/22 11:58 75 113/64 05/08/22 11:54 36.4 05/08/22 11:00 81 118/64 (82) 96 Nasal Cannula 2.00 05/08/22 10:00 75 113/64 (80) 96 Nasal Cannula 2.00 I & O0 05/09/22 07:00 Intake Total 1565.2 ml Output Total 1225 ml Balance 340.2 ml Height & Weight Height: '" Weight: lbs. oz. kg; 31.17 BMI Method: General Appearance: No Apparent Distress, WD/WN, Chronically ill HEENT: PERRL/EOMI, Normal ENT Inspection, Pharynx Normal Neck: Full Range of Motion, Normal Inspection, Non Tender, Supple, Carotid Bruit Respiratory: Chest Non Tender, Lungs Clear, Normal Breath Sounds, No Accessory Muscle Use, No Respiratory Distress Cardiovascular: No Edema, No Gallop, No JVD, No Murmur, Normal Peripheral Pulses, Systolic Murmur, Tachycardia Capillary Refill: Less Than 3 Seconds Extremity: Normal Capillary Refill, Normal Inspection, Normal Range of Motion (except left leg), Non Tender, No Calf Tenderness, No Pedal Edema Neurologic/Psychiatric: Alert, Oriented x3, No Motor/Sensory Deficits, Normal Mood/Affect Skin: Normal Color, Warm/Dry Lymphatic: No Adenopathy Results Lab Laboratory Tests 05/08/22 04:26 05/09/22 04:13 Assessment/Plan Assessment/Plan See free text. Critical Care: Critically Ill Patient ARIELLA MARX MD May 09, 2022 09:34
--- NOTE | 2022-05-09 10:26 | Cardiology Progress Note ---
Progress Note-Cardiology Events since last exam Date Seen by Provider: May 09, 2022 Time Seen by Provider: 10:21 Events since last exam We are following him due to supraventricular tachycardia, atrial fibrillation and sick sinus syndrome. He remains in the ICU. He was sitting up in a chair. He is conversant but slightly confused. He had been on Precedex due to agitation and this was just stopped this morning. He denies chest discomfort, dyspnea at rest, palpitations, or syncope. He does have left lower extremity edema. His main complaint is bilateral knee pain. Certain portions of this document may have been dictated utilizing voice recognition technology. Inherent to this technology, typographical and grammatical errors may exist. As much as I am diligent to identify and correct these mistakes, some errors may remain in the document. Vitals Last set of Vitals Signs Vital Signs 05/09/22 15:19 Temp 37.9 Pulse 102 Resp 18 B/P (MAP) 102/64 (77) Pulse Ox 97 O2 Delivery Room Air O2 Flow Rate 2.00 2.00 Labs Labs Laboratory Tests 05/09/22 04:13 Exam Vital Signs Vital Signs Date Time Temp Pulse Resp B/P (MAP) Pulse Ox O2 Delivery O2 Flow Rate FiO2 05/09/22 15:19 37.9 102 18 102/64 (77) 97 Room Air 2.00 2.00 Physical Exam General: Alert. No acute distress. He is confused. Eye: No xanthelasma. HENT: Normocephalic. Neck: Jugular venous pressure does not appear elevated. Respiratory: Lungs have decreased breath sounds at the bases bilaterally. Respirations are non-labored. Breath sounds are equal. Symmetrical chest wall expansion. Cardiovascular: Normal rate. Regular rhythm. Distant S1/S2. No murmur. No gallop. 2+ left lower extremity edema. Gastrointestinal: Soft. Normal bowel sounds. Skin: Warm. Dry. Neurologic: Alert and oriented to person only. Cranial nerves 3-11 grossly intact. Psychiatric: Cooperative. Conversing but somewhat confused. He knows he is in the hospital but cannot remember where he lives, the year, or where he is now. Labs Laboratory Tests Test 05/09/22 00:47 05/09/22 04:05 05/09/22 04:13 05/09/22 11:22 Range/Units Glucometer 135 H 167 H 70-110 MG/DL B-Type Natriuretic Peptide 372.6 H <100.0 PG/ML Triglycerides Level 135 <150 MG/DL Cholesterol Level 113 < 200 MG/DL LDL Cholesterol Direct 61 1-129 MG/DL VLDL Cholesterol 27 5-40 MG/DL HDL Cholesterol 31 L 40-60 MG/DL Thyroid Stimulating Hormone (TSH) 0.99 0.35-4.94 UIU/ML White Blood Count 8.4 4.3-11.0 10^3/uL Red Blood Count 4.03 L 4.30-5.52 10^6/uL Hemoglobin 11.4 L 13.3-17.7 g/dL Hematocrit 35 L 40-54 % Mean Corpuscular Volume 88 80-99 fL Mean Corpuscular Hemoglobin 28 25-34 pg Mean Corpuscular Hemoglobin Concent 32 32-36 g/dL Red Cell Distribution Width 13.2 10.0-14.5 % Platelet Count 144 130-400 10^3/uL Mean Platelet Volume 10.3 9.0-12.2 fL Immature Granulocyte % (Auto) 0 % Neutrophils (%) (Auto) 77 H 42-75 % Lymphocytes (%) (Auto) 14 12-44 % Monocytes (%) (Auto) 7 0-12 % Eosinophils (%) (Auto) 2 0-10 % Basophils (%) (Auto) 1 0-10 % Neutrophils # (Auto) 6.5 1.8-7.8 10^3/uL Lymphocytes # (Auto) 1.1 1.0-4.0 10^3/uL Monocytes # (Auto) 0.6 0.0-1.0 10^3/uL Eosinophils # (Auto) 0.1 0.0-0.3 10^3/uL Basophils # (Auto) 0.0 0.0-0.1 10^3/uL Immature Granulocyte # (Auto) 0.0 0.0-0.1 10^3/uL Sodium Level 134 L 135-145 MMOL/L Potassium Level 4.3 3.6-5.0 MMOL/L Chloride Level 107 98-107 MMOL/L Carbon Dioxide Level 21 21-32 MMOL/L Anion Gap 6 5-14 MMOL/L Blood Urea Nitrogen 21 H 7-18 MG/DL Creatinine 0.76 0.60-1.30 MG/DL Estimat Glomerular Filtration Rate 93 BUN/Creatinine Ratio 28 Glucose Level 130 H 70-105 MG/DL Calcium Level 8.3 L 8.5-10.1 MG/DL Corrected Calcium 9.2 8.5-10.1 MG/DL Magnesium Level 4.2 H 1.6-2.4 MG/DL Total Bilirubin 0.5 0.1-1.0 MG/DL Aspartate Amino Transf (AST/SGOT) 21 5-34 U/L Alanine Aminotransferase (ALT/SGPT) 13 0-55 U/L Alkaline Phosphatase 46 40-136 U/L Total Protein 5.4 L 6.4-8.2 GM/DL Albumin 2.9 L 3.2-4.5 GM/DL Diagnosis/Problems Diagnosis/Problems (1) Supraventricular tachycardia Assessment & Plan: This seems to have improved with diltiazem but then he developed some bradycardia. His blood pressure is running borderline low at times. He is back on his home dose of metoprolol tartrate. I will stop the diltiazem at this time. (2) Paroxysmal atrial fibrillation Assessment & Plan: This morning he was in sinus rhythm and sinus bradycardia. As above, due to borderline low blood pressures and intermittent bradycardia, I will discontinue the short acting diltiazem. He should continue on metoprolol tartrate and flecainide. He is not on oral anticoagulation due to recent gastrointestinal hemorrhaging according to the medical record from this admission. 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 (3) Sick sinus syndrome Assessment & Plan: As above, he has been having some bradycardia and pauses while on both beta-rigo and diltiazem. As such, I will now stop the diltiazem. Hopefully, he will not have recurrent tachycardia. (4) Pulmonary hypertension Assessment & Plan: Exact etiology unclear. This will need to be followed longitudinally. (5) Primary hypertension Assessment & Plan: As above, his blood pressures have been intermittently running borderline low. I will stop the diltiazem. DONNIE RIOS JR, MD May 09, 2022 10:26
--- NOTE | 2022-05-09 11:13 | Physical Therapy Daily Note ---
PT Daily Note-Current Subjective Patient more alert and oriented on this date. Agrees to PT. Pain Section J - Health Conditions 1. Rarely or not at all 2. Occasionally 3. Frequently 4. Almost constantly 8. Unable to answer Pain Effect on Sleep: 2 Pain Interference with Therapy: 2 Pain Interference w/Day-to-Day: 2 Mental Status Patient Orientation: Person, Time, Situation Attachments: Oxygen, New Catheter, IV Transfers SCALE: Activities may be completed with or without assistive devices. 3-Ydwxybtqbl-hmkcnct completes the activity by him/herself with no assistance from a helper. 5-Set-up or Clean-up Assistance-helper sets up or cleans up; patient completes activity. Mobile assists only prior to or following the activity. 4-Supervision or Touching Assistance-helper provides verbal cues and/or to uching/steadying and/or contact guard assistance as patient completes activity. Assistance may be provided throughout the activity or intermittently. 3-Partial/Moderate Assistance-helper does LESS THAN HALF the effort. Mobile lifts, holds or supports trunk or limbs, but provides less than half the effort. 2-Substantial/Maximal Assistance-helper does MORE THAN HALF the effort. Mobile lifts or holds trunk or limbs and provides more than half the effort. 8-Vmqejfgak-ezazja does ALL the effort. Patient does none of the effort to complete the activity. Or, the assistance of 2 or more helpers is required for the patient to complete the activity. If activity was not attempted, code reason: 7-Patient Refused. 9-Not Applicable-not attempted and the patient did not perform the activity before the current illness, exacerbation or injury. 10-Not Attempted due to Environmental Limitations-(lack of equipment, weather restraints, etc.). 88-Not Attempted due to Medical Conditions or Safety Concerns. Lying to Sitting/Side of Bed(Q: 3 Sit to Stand (QC): 2 Chair/Gdz-bu-Msjjm Xfer(QC): 2 Toilet Transfer (QC): 2 patient unable to stand fully erect with sit to stand and SPT bed to commode to recliner. Weight Bearing Left Lower Extremity: Left Weight Bearing/Tolerated Gait Training Does the Patient Walk?: No and Walking Goal IS indicated Gait Assistive Device: FWW unable to take steps on this date due to weakness and inability to stand fully erect to perform safely Exercises Supine Ex: Ankle pumps, Heel Slides, Straight leg raise Supine Reps: 15 (AAROM bilateral LE) Assessment Patient up in recliner with needs met. Patient improved on this date with mentation and is cooperative with all tasks. Patient unable to stand fully erect with sit to stand and SPT bed to commode to recliner with FWW use. PT to increase activity as tolerated by patient. PT Custodial Goals Apartment Rental Agent Goals PT Custodial Goals Time Frame: May 14, 2022 Roll Left & Right (QC): 6 Sit to Lying (QC): 6 Lying-Sitting on Side/Bed(QC): 6 Sit to Stand (QC): 4 (SBA) Chair/Xus-rf-Vixch Xfer(QC): 4 (SBA) Walk 10 feet (QC): 4 (SBA) PT Plan Treatment/Plan Treatment Plan: Continue Plan of Care Treatment Plan: Bed Mobility, Education, Functional Activity Glenny, Functional Strength, Gait, Safety, Therapeutic Exercise, Transfers Treatment Duration: May 14, 2022 Frequency: 11 times per week Estimated Hrs Per Day: .25 hour per day Patient and/or Family Agrees t: Yes Time Time In: 800 Time Out: 829 DATE: May 09, 2022 Total Billed Treatment Time: 29 Total Billed Treatment 1 visit EX 12 min FA 17 min RUBENS GAGNON PT May 09, 2022 11:13
[2022-05-09] MEDS ORDERED: ZIPRASIDONE 20 MG INJ (GEODON) VIAL IM PRN (11:30)
[2022-05-09] MEDS ORDERED: LORazepam 0.5 MG (ATIVAN) TABLET PO PRN (11:30)
[2022-05-09] MEDS ORDERED: LORazepam INJ 2 MG/ML (ATIVAN) VIAL IVP PRN (11:30)
[2022-05-09] MEDS ORDERED: WATER (STERILE) FOR INJ 10 ML BTL INJ SCH (11:30)
--- NOTE | 2022-05-09 13:45 | Physical Therapy Daily Note ---
PT Daily Note-Current Subjective Patient agrees to PT. Pain Section J - Health Conditions 1. Rarely or not at all 2. Occasionally 3. Frequently 4. Almost constantly 8. Unable to answer Pain Effect on Sleep: 2 Pain Interference with Therapy: 2 Pain Interference w/Day-to-Day: 2 Mental Status Patient Orientation: Person Attachments: New Catheter, IV Transfers SCALE: Activities may be completed with or without assistive devices. 9-Lwcsctfkih-ipuunqh completes the activity by him/herself with no assistance from a helper. 5-Set-up or Clean-up Assistance-helper sets up or cleans up; patient completes activity. [place] assists only prior to or following the activity. 4-Supervision or Touching Assistance-helper provides verbal cues and/or touching/steadying and/or contact guard assistance as patient completes activity. Assistance may be provided throughout the activity or intermittently. 3-Partial/Moderate Assistance-helper does LESS THAN HALF the effort. [place] lifts, holds or supports trunk or limbs, but provides less than half the effort. 2-Substantial/Maximal Assistance-helper does MORE THAN HALF the effort. [place] lifts or holds trunk or limbs and provides more than half the effort. 7-Fmrheylsh-weywlb does ALL the effort. Patient does none of the effort to complete the activity. Or, the assistance of 2 or more helpers is required for the patient to complete the activity. If activity was not attempted, code reason: 7-Patient Refused. 9-Not Applicable-not attempted and the patient did not perform the activity before the current illness, exacerbation or injury. 10-Not Attempted due to Environmental Limitations-(lack of equipment, weather restraints, etc.). 88-Not Attempted due to Medical Conditions or Safety Concerns. Sit to Stand (QC): 2 (x 2 sets) Weight Bearing Left Lower Extremity: Left Weight Bearing/Tolerated Gait Training Does the Patient Walk?: No and Walking Goal IS indicated Exercises Supine Ex: Ankle pumps, Quad Set, Heel Slides, Straight leg raise Supine Reps: 15 (AAROM) Seated Therapy Exercises: Long arc quads Seated Reps: 15 Assessment Patient continues to have difficulty with sit to stand to FWW with inability to stand erect. AAROM left LE with AROM right LE. Patient improving slowly with treatment plan. Continue to increase activity. PT Dry Plasterer Helper Goals Dry Plasterer Helper Goals PT Dry Plasterer Helper Goals Time Frame: May 14, 2022 Roll Left & Right (QC): 6 Sit to Lying (QC): 6 Lying-Sitting on Side/Bed(QC): 6 Sit to Stand (QC): 4 (SBA) Chair/Ebu-io-Xzdbf Xfer(QC): 4 (SBA) Walk 10 feet (QC): 4 (SBA) PT Plan Treatment/Plan Treatment Plan: Continue Plan of Care Treatment Plan: Bed Mobility, Education, Functional Activity Glenny, Functional Strength, Gait, Safety, Therapeutic Exercise, Transfers Treatment Duration: May 14, 2022 Frequency: 11 times per week Estimated Hrs Per Day: .25 hour per day Patient and/or Family Agrees t: Yes Time Time In: 1315 Time Out: 1338 DATE: May 09, 2022 Total Billed Treatment Time: 23 Total Billed Treatment 1 visit EX x 2 23 min RUBENS GAGNON PT May 09, 2022 13:45
--- NOTE | 2022-05-09 14:14 | Occupational Ther Daily Note ---
OT Current Status-Daily Note Subjective Pt alert, sitting in recliner. Pt agrees to therapy. No c/o pain . Apologetic for previous behaviors. Mental Status/Objective Patient Orientation: Person, Place, Time, Situation Attachments: IV, Telemetry ADL-Treatment Set up for eating and requires cues to continue to eat and drink. After session, pt sitting in recliner with call light/phone in reach. All needs met in room. Therapy Code Descriptions/Definitions Functional [place] Measure: 0=Not Assessed/NA 4=Minimal Assistance 1=Total Assistance 5=Supervision or Setup 2=Maximal Assistance 6=Modified [place] 3=Moderate Assistance 7=Complete IndependenceSCALE: Activities may be completed with or without assistive devices. 6-Skgfsbflgy-durhzpd completes the activity by him/herself with no assistance from a helper. 5-Set-up or Clean-up Assistance-helper sets up or cleans up; patient completes activity. [place] assists only prior to or following the activity. 4-Supervision or Touching Assistance-helper provides verbal cues and/or touching/steadying and/or contact guard assistance as patient completes activity. Assistance may be provided throughout the activity or intermittently. 3-Partial/Moderate Assistance-helper does LESS THAN HALF the effort. [place] lifts, holds or supports trunk or limbs, but provides less than half the effort. 2-Substantial/Maximal Assistance-helper does MORE THAN HALF the effort. [place] lifts or holds trunk or limbs and provides more than half the effort. 4-Gthjekjnl-xzipjl does ALL the effort. Patient does none of the effort to complete the activity. Or, the assistance of 2 or more helpers is required for the patient to complete the activity. If activity was not attempted, code reason: 7-Patient Refused. 9-Not Applicable-not attempted and the patient did not perform the activity before the current illness, exacerbation or injury. 10-Not Attempted due to Environmental Limitations-(lack of equipment, weather restraints, etc.). 88-Not Attempted due to Medical Conditions or Safety Concerns. Eating (QC): 4 OT Assisted Goals Assisted Goals Time Frame: May 21, 2022 Eating (QC): 5 Oral Hygiene (QC): 5 Toileting Hygiene (QC): 4 Shower/Bathe Self (QC): 4 Upper Body Dressing (QC): 4 Lower Body Dressing (QC): 4 On/Off Footwear (QC): 4 Additional Goals: 1-Demonstrate ADL Tasks, 2-Verbalize Understanding, 3- ImproveStrength/Glenny 1=Demonstrate adherence to instructed precautions during ADL tasks. 2=Patient will verbalize/demonstrate understanding of assistive devices/modifications for ADL. 3=Patient will improve strength/tolerance for activity to enable patient to perform ADL's. OT Education/Plan Problem List/Assessment Assessment: Impaired Cognition, Impaired Self-Care Skills Discharge Recommendations Plan/Recommendations: Continue POC Treatment Plan/Plan of Care Patient would benefit from OT for education, treatment and training to promote independence in ADL's, mobility, safety and/or upper extremity function for ADL's. Plan of Care: ADL Retraining, Cognitive Retraining, Functional Mobility, Group Exercise/Act as Ind, UE Funct Exercise/Act, W/C Management Training Treatment Duration: May 21, 2022 Frequency: 3 times per week (3-5x/week ) Estimated Hrs Per Day: .25 hour per day Agreement: Yes Rehab Potential: Guarded Time Start Time: 10:30 Stop Time: 11:00 DATE: May 09, 2022 Total Time Billed (hr/min): 30 Billed Treatment Time 1 visit-ADL 2 (30 min) TANIYA VARGHESE May 09, 2022 14:14
[2022-05-09] MEDS: meTOprolol 5 MG/5 ML (LOPRESSOR) VIAL IV PRN (17:40)
[2022-05-09 20:07] VITALS: BP 121/62
[2022-05-09] MEDS: PANTOPRAZOLE 40 MG (PROTONIX) TAB PO SCH (20:17)
[2022-05-09] MEDS: ENOXAPARIN 40 MG/0.4 ML (LOVENOX) SYR SC SCH (20:18)
[2022-05-09 23:59] VITALS: BP 146/69
[2022-05-10] MEDS: CEFEPIME INJECTION 1,000 MG in NS (IVPB) 50 ML IV SCH ×4 (01:32→20:44)
[2022-05-10] MEDS: meTOprolol 5 MG/5 ML (LOPRESSOR) VIAL IV PRN (02:29)
[2022-05-10 02:30] VITALS: BP 119/74
[2022-05-10 03:10] VITALS: BP 107/68
[2022-05-10] MEDS ORDERED: meTOprolol TARTRATE 25 MG (LOPRESSOR) TABLET PO ONE (03:30)
[2022-05-10 04:20] VITALS: BP 106/61
[2022-05-10 05:28] LABS: BASOPHILS # (AUTO) 0.1 10^3/uL (0.0-0.1); BASOPHILS % (AUTO) 1 % (0-10); EOSINOPHILS # (AUTO) 0.2 10^3/uL (0.0-0.3); EOSINOPHILS % (AUTO) 2 % (0-10); HEMATOCRIT 38 % (40-54); HEMOGLOBIN 12.6 g/dL (13.3-17.7); LYMPHOCYTES # (AUTO) 1.9 10^3/uL (1.0-4.0); LYMPHOCYTES % (AUTO) 19 % (12-44); MEAN CORPUSCULAR HEMOGLOBIN 29 pg (25-34); MEAN CORPUSCULAR HGB CONC 33 g/dL (32-36); MEAN CORPUSCULAR VOLUME 86 fL (80-99); MEAN PLATELET VOLUME 10.7 fL (9.0-12.2); MONOCYTES # (AUTO) 0.8 10^3/uL (0.0-1.0); MONOCYTES % (AUTO) 9 % (0-12); NEUTROPHILS # (AUTO) 6.7 10^3/uL (1.8-7.8); NEUTROPHILS % (AUTO) 69 % (42-75); PLATELET COUNT 223 10^3/uL (130-400); WHITE BLOOD COUNT 9.7 10^3/uL (4.3-11.0)
[2022-05-10 05:37] VITALS: BP 99/63
[2022-05-10] MEDS ORDERED: dilTIAZem DRIP PRE-MIX 125 ML IV SCH (05:45)
[2022-05-10 05:51] LABS: ALBUMIN 3.1 GM/DL (3.2-4.5); POTASSIUM 4.1 MMOL/L (3.6-5.0)
[2022-05-10 05:52] LABS: CALCIUM 8.5 MG/DL (8.5-10.1)
[2022-05-10 05:53] LABS: TOTAL PROTEIN 5.7 GM/DL (6.4-8.2)
[2022-05-10 05:55] LABS: BILIRUBIN,TOTAL 0.7 MG/DL (0.1-1.0)
[2022-05-10 05:57] LABS: CREATININE SERUM 0.83 MG/DL (0.60-1.30)
[2022-05-10 06:00] LABS: MAGNESIUM 2.2 MG/DL (1.6-2.4)
[2022-05-10] MEDS: dilTIAZem DRIP 125 MG/100 ML NS IV SCH ×2 (06:35)
[2022-05-10] MEDS: PANTOPRAZOLE 40 MG (PROTONIX) TAB PO SCH ×2 (08:27→20:45)
[2022-05-10] MEDS: DOCUSATE SODIUM 100 MG (COLACE) CAP PO SCH ×2 (08:27→20:45)
[2022-05-10] MEDS: SENNOSIDES 8.6 MG (SENOKOT) TAB PO SCH ×2 (08:27→20:45)
[2022-05-10] MEDS: FERROUS SULF 325 MG (IRON) TAB PO SCH (08:27)
--- NOTE | 2022-05-10 09:00 | Cardiology Progress Note ---
Progress Note-Cardiology Events since last exam Date Seen by Provider: May 10, 2022 Time Seen by Provider: 08:52 Events since last exam We are following him due to atrial arrhythmias. On 05/09 he was transferred to the medical floor but developed recurrent tachycardia. I gave him some extra doses of oral metoprolol and oral diltiazem but the tachycardia persisted. I had him transferred back to the ICU and placed him on diltiazem infusion. He continues to have tachycardia. He is more awake today but still disoriented. He denies chest discomfort, dyspnea at rest, palpitations, syncope, or ankle edema. Certain portions of this document may have been dictated utilizing voice recognition technology. Inherent to this technology, typographical and grammatical errors may exist. As much as I am diligent to identify and correct these mistakes, some errors may remain in the document. Vitals Last set of Vitals Signs Vital Signs 05/09/22 05/10/22 05/10/22 20:07 07:53 08:00 Temp 36.8 Pulse 160 Resp 11 B/P (MAP) 112/73 (86) Pulse Ox 97 O2 Delivery Room Air O2 Flow Rate 2.00 2.00 Labs Labs Laboratory Tests 05/10/22 05:00 Exam Vital Signs Vital Signs Date Time Temp Pulse Resp B/P (MAP) Pulse Ox O2 Delivery O2 Flow Rate FiO2 05/10/22 08:00 160 11 112/73 (86) 97 Room Air 05/10/22 07:53 36.8 05/09/22 20:07 2.00 2.00 Physical Exam General: Alert. No acute distress. Eye: No xanthelasma. HENT: Normocephalic. Neck: Jugular venous pressure does not appear elevated. Respiratory: Lungs are clear to auscultation but decreased at the bases bilaterally. Respirations are non-labored. Breath sounds are equal. Symmetrical chest wall expansion. Cardiovascular: Tachycardia with irregular rhythm. No murmur. No gallop. Trace left pretibial edema. Gastrointestinal: Soft. Normal bowel sounds. Skin: Warm. Dry. Neurologic: Alert and oriented to person only. Cranial nerves 3-11 grossly intact. Baseline tremor of his hands, worse on the left. Psychiatric: Cooperative. Disoriented but pleasant. Labs Laboratory Tests Test 05/09/22 11:22 05/10/22 05:00 Range/Units Glucometer 167 H 70-110 MG/DL White Blood Count 9.7 4.3-11.0 10^3/uL Red Blood Count 4.42 4.30-5.52 10^6/uL Hemoglobin 12.6 L 13.3-17.7 g/dL Hematocrit 38 L 40-54 % Mean Corpuscular Volume 86 80-99 fL Mean Corpuscular Hemoglobin 29 25-34 pg Mean Corpuscular Hemoglobin Concent 33 32-36 g/dL Red Cell Distribution Width 13.4 10.0-14.5 % Platelet Count 223 130-400 10^3/uL Mean Platelet Volume 10.7 9.0-12.2 fL Immature Granulocyte % (Auto) 0 % Neutrophils (%) (Auto) 69 42-75 % Lymphocytes (%) (Auto) 19 12-44 % Monocytes (%) (Auto) 9 0-12 % Eosinophils (%) (Auto) 2 0-10 % Basophils (%) (Auto) 1 0-10 % Neutrophils # (Auto) 6.7 1.8-7.8 10^3/uL Lymphocytes # (Auto) 1.9 1.0-4.0 10^3/uL Monocytes # (Auto) 0.8 0.0-1.0 10^3/uL Eosinophils # (Auto) 0.2 0.0-0.3 10^3/uL Basophils # (Auto) 0.1 0.0-0.1 10^3/uL Immature Granulocyte # (Auto) 0.0 0.0-0.1 10^3/uL Sodium Level 136 135-145 MMOL/L Potassium Level 4.1 3.6-5.0 MMOL/L Chloride Level 109 H 98-107 MMOL/L Carbon Dioxide Level 17 L 21-32 MMOL/L Anion Gap 10 5-14 MMOL/L Blood Urea Nitrogen 20 H 7-18 MG/DL Creatinine 0.83 0.60-1.30 MG/DL Estimat Glomerular Filtration Rate 91 BUN/Creatinine Ratio 24 Glucose Level 93 70-105 MG/DL Calcium Level 8.5 8.5-10.1 MG/DL Corrected Calcium 9.2 8.5-10.1 MG/DL Magnesium Level 2.2 1.6-2.4 MG/DL Total Bilirubin 0.7 0.1-1.0 MG/DL Aspartate Amino Transf (AST/SGOT) 21 5-34 U/L Alanine Aminotransferase (ALT/SGPT) 19 0-55 U/L Alkaline Phosphatase 47 40-136 U/L Total Protein 5.7 L 6.4-8.2 GM/DL Albumin 3.1 L 3.2-4.5 GM/DL Diagnosis/Problems Diagnosis/Problems (1) Paroxysmal atrial fibrillation Assessment & Plan: On 05/09 he was in sinus rhythm and sinus bradycardia. As above, due to borderline low blood pressures and intermittent bradycardia, I discontinued the short acting oral diltiazem on 05/09. Since he is of advanced age and has recurrent tachycardia, I will stop his flecainide. We will continue IV diltiazem. He has not been on oral anticoagulation due to reported history of gastrointestinal hemorrhaging but during his hospitalization here, his hemoglobin level has been reasonably stable. I will start him on apixaban 5 mg twice daily. I have ordered a stool for Hemoccult. Since he had been going in and out of atrial fibrillation on 05/09, even though he had not been on oral antic oagulation, the risk of a stroke should be somewhat lower if he converts back to sinus rhythm since he was doing this on 05/09. I will start him on amiodarone infusion to see if we can break the tachycardia and then we will probably transition him to oral amiodarone. This could potentially be tapered following discharge. 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 (2) Supraventricular tachycardia Assessment & Plan: This had improved with oral diltiazem but then he developed some bradycardia. His blood pressure is running borderline low at times. He is back on his home dose of metoprolol tartrate. I stopped the oral diltiazem due to some slow heart rates but then he developed recurrent tachycardia and is now on diltiazem infusion. (3) Sick sinus syndrome Assessment & Plan: As above, he had been having some bradycardia and pauses while on both beta-rigo and diltiazem. I made adjustments to his medication as outlined above. (4) Primary hypertension Assessment & Plan: As above, his blood pressures have been intermittently running borderline low. We will adjust his medications accordingly. (5) History of gastrointestinal hemorrhage Assessment & Plan: As above, his hemoglobin level has been reasonably stable during this admission. The previous gastrointestinal hemorrhage apparently occurred at an outside hospital. I will start him on apixaban for the atrial fibrillation and watch his hemoglobin level closely. As above, I have also ordered a stool for Hemoccult. (6) Pulmonary hypertension Assessment & Plan: Exact etiology unclear. This will need to be followed longitudinally. DONNIE RIOS JR, MD May 10, 2022 09:00
--- NOTE | 2022-05-10 09:18 | Tele-ICU Progress Note ---
Subjective Date Seen by a Provider: May 10, 2022 Time Seen by a Provider: 09:12 Subjective/Events-last exam Tele-ICU Physician , Progress note) Available chart/ vitals / labs / Images reviewed H&P is from ER notes Patient's information available about PMH, allergy reviewed in EMR. ROS as per chart and RN report Video assessment done using teleICU camera, rest of exam as per RN Discussed with RN. He is a 76-year-old white male apparently detention patient reportedly had a uncomplicated left knee replacement at [facility] in [place] and a 4 hours after the surgery reportedly found to have a atrial fibrillation and with rapid ventricular rate. Subsequently he required ICU admission and cardiology c onsultation hence he is transferred to [facility] in [place]. Currently his heart rate is controlled on 5 mg of Cardizem drip however his heart rate going up and down suggestive of for sinus node dysfunction. Patient already seen by cardiology. 05/08/22. today he is confused and refusing po pills. Just now restarted his iv. HR is 145/mt with afib rvr. 05/10/2022. he is transfered back to icu from medical floor due to afib with rvr. seen by deployment manager. started on Cardizem drip. still hr is 164/mt. more alert and talking but still confused. Impression 1. Status post left knee replacement 2. Paroxysmal atrial fibrillation with possible sinus node dysfunction, current ly has RVR 3. History of hypertension 4. History of hyperlipidemia 5. Type 2 diabetes mellitus. 6. Confusion/ ams probably is due to ICU psychosis Recommendations 1. Management of atrial fibrillation per cardiology. Anticoagulation could not be given as patient recently had a upper GI bleed secondary to the use of aspirin and NSAID. 2. Diabetes management per primary care 3. Echocardiography per cardiology 4. Care coordination with bedside consultants and primary care physician. 5. Physical therapy. 6. precedex if needed 7. Continue monitor mental status. Care coordination with bedside consultants and primary care physician. Sepsis Event Evaluation Height, Weight, BMI Height: '" Weight: lbs. oz. kg; 30.93 BMI Method: Exam Exam Patient acknowledged, consented, and participated in this virtual visit which was conducted using real time audio/video Vital Signs Date Time Temp Pulse Resp B/P (MAP) Pulse Ox O2 Delivery O2 Flow Rate FiO2 05/10/22 08:00 160 11 112/73 (86) 97 Room Air 05/10/22 07:53 36.8 05/10/22 07:00 158 26 92/81 (85) 97 Room Air 05/10/22 07:00 161 05/10/22 06:35 156 124/81 05/10/22 05:37 153 20 99/63 (75) 96 Room Air 05/10/22 04:20 36.3 152 16 106/61 (76) 94 Room Air 05/10/22 03:10 160 107/68 (81) 05/10/22 02:30 166 119/74 (89) 05/10/22 01:00 89 05/10/22 00:13 37.2 05/09/22 23:59 37.8 85 16 146/69 (94) 95 Room Air 05/09/22 23:15 37.8 85 16 146/69 (94) 95 Room Air 05/09/22 20:15 Room Air 05/09/22 20:07 37.4 81 20 121/62 (81) 96 Room Air 2.00 2.00 05/09/22 19:29 37.4 81 20 121/62 (81) 96 Room Air 05/09/22 19:00 85 05/09/22 17:44 97 Room Air 05/09/22 17:30 189 125/81 (96) 05/09/22 17:03 97 Room Air 05/09/22 15:19 37.9 102 18 102/64 (77) 97 Room Air 2.00 2.00 05/09/22 14:40 Room Air 05/09/22 14:36 37.2 94 18 151/67 (95) 97 Room Air 05/09/22 12:00 58 135/66 (89) 99 Room Air 05/09/22 11:44 37.0 05/09/22 11:00 67 102/58 (73) 100 Room Air 05/09/22 10:00 57 106/62 (77) 99 Room Air I & O 05/10/22 07:00 Intake Total 1385 ml Output Total 910 ml Balance 475 ml Height & Weight Height: '" Weight: lbs. oz. kg; 30.93 BMI Method: General Appearance: No Apparent Distress, WD/WN, Chronically ill HEENT: PERRL/EOMI, Normal ENT Inspection, Pharynx Normal Neck: Full Range of Motion, Normal Inspection, Non Tender, Supple, Carotid Bruit Respiratory: Chest Non Tender, Lungs Clear, Normal Breath Sounds, No Accessory Muscle Use, No Respiratory Distress Cardiovascular: No Edema, No Gallop, No JVD, No Murmur, Normal Peripheral Pulses, Systolic Murmur, Tachycardia Capillary Refill: Less Than 3 Seconds Extremity: Normal Capillary Refill, Normal Inspection, Normal Range of Motion (except left leg), Non Tender, No Calf Tenderness, No Pedal Edema Neurologic/Psychiatric: Alert, Oriented x3, No Motor/Sensory Deficits, Normal Mood/Affect Skin: Normal Color, Warm/Dry Lymphatic: No Adenopathy Results Lab Laboratory Tests 05/09/22 04:13 05/10/22 05:00 Assessment/Plan Assessment/Plan as sabi Critical Care: Critically Ill Patient Time spent with patient (mins): 15 YOBANY BASSETT MD May 10, 2022 09:18
[2022-05-10] MEDS: meTOprolol TARTRATE 50 MG (LOPRESSOR) TAB PO SCH ×2 (09:41→20:44)
[2022-05-10] MEDS: APIXABAN 5 MG (ELIQUIS) TABLET PO SCH ×2 (09:43→20:45)
[2022-05-10] MEDS: AMIODARONE INJECTION 450 MG in NORMAL SALINE 250 ML IV SCH ×2 (09:44→18:47)
--- NOTE | 2022-05-10 16:05 | Progress Note - Hospitalist ---
Subjective HPI/CC On Admission Date Seen by Provider: May 10, 2022 Time Seen by Provider: 10:20 CC: SVT post op left knee replacement at [facility] per Dr Cassidy HPI: This is a 76yoWM NH patient at [facility] who presented to the ICU following an uncomplicated left knee replacement by Dr Cassidy at [facility] but 4 hours post op he was noted to have tachycardia and EKG revealed SVT. Patient required transfer to ICU and Cardiology consultation. 09/2021 admit DC note from [facility] copied and pasted: Symptomatic anemia Atrial fibrillation with rapid ventricular response Severe anemia Orthostatic dizziness Dyspnea History of alcohol abuse Resolved Hospital Problems No resolved problems to display. D'Lo 5d Jesse Penariyann 5d is a D'Lo 5d 76 y.o.D'Lo 5d D'Lo 5d maleArial 5d who was admitted to [facility] on D'Lo 5d 2Arial 5d and found to have a principle diagnosis of multiple erosive lesions in the stomach due to NSAID use as well as new onset atrial fibrillation with rapid ventricular response. 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 He was found to have anemia down to 6.4 on arrival and EKG also showed atrial fibrillation with rapid ventricular response. Patient had apparently been taking significant amounts of aspirin and other NSAIDs due to the pain in his knees. He had an appropriate response to transfusion with hemoglobin maintaining in the sevens following the transfusion of red blood cells. GI was consulted and performed an upper endoscopy with the finding of multiple lesions in the stomach as well as erosive esophagitis (see report below). Hemoglobin was stable following procedure in the transfusion. He is recommended to have follow-up with Dr. Elizabeth in 2 weeks with a repeat CBC at that time and to start twice daily PPI for healing of the erosions. Obviously, he is to avoid NSAIDs. Regarding his atrial fibrillation with rapid ventricular response, he was started on diltiazem 60 4 times daily with good response and spontaneous return to normal sinus rhythm. The patient will be transition to extended release diltiazem on discharge 240 mg and no anticoagulation due to his anemia. Due to his significant weakness, PT OT is recommending jail facility placement for him. See below for his echo as well as his EGD reports. [facility] Patient Name: Jesse Luis Procedure Date: 09/12/2021 Date of : 1945 Admit Type: Inpatient Age: 76 Attending MD: Kilo Elizabeth , Procedure: Upper GI endoscopy Indications: Iron deficiency anemia secondary to chronic blood loss Providers: Kilo Elizabeth Referring MD: Medicines: Propofol per Anesthesia Complications: No immediate complications. Procedure: Pre-Anesthesia Assessment: - This assessment was completed prior to the administration of sedation. After obtaining informed consent, the endoscope was passed under direct vision. Throughout the procedure, the patient's blood pressure, pulse, and oxygen saturations were monitored continuously. The was introduced through the mouth, and advanced to the second part of duodenum. The upper GI endoscopy was accomplished without difficulty. The patient tolerated the procedure well. Findings: LA Grade C (one or more mucosal breaks continuous between tops of 2 or more mucosal folds, less than 75% circumference) esophagitis with bleeding was found in the middle and lower thirds of the esophagus. Biopsies were taken with a cold forceps for histology. Verification of patient identification for the specimen was done. Estimated blood loss was minimal. A large hiatal hernia with multiple Basil ulcers was found. The proximal extent of the gastric folds (end of tubular esophagus) was 35 cm from the incisors. The hiatal narrowing was 40 cm from the incisors. A few localized 5 mm erosions with stigmata of recent bleeding were found in the gastric antrum. Biopsies were taken with a cold forceps for histology. Verification of patient identification for the specimen was done. Estimated blood loss was minimal. A few 5 mm sessile polyps with no stigmata of recent bleeding were found in the gastric body. These polyps were removed with a cold snare. Polyp resection was incomplete. The resected tissue was retrieved. Verification of patient identification for the specimen was done. Estimated blood loss was minimal. Few non-bleeding superficial duodenal ulcers with no stigmata of bleeding were found in the duodenal bulb. The largest lesion was 3 mm in largest dimension. Impression: - LA Grade C reflux esophagitis with bleeding. Biopsied. - Large hiatal hernia with multiple Basil ulcers. - Erosive gastropathy with stigmata of recent bleeding. Biopsied. - A few gastric polyps. Incomplete resection. Resected tissue retrieved. - Non-bleeding duodenal ulcers with no stigmata of bleeding. Recommendation: - Await pathology results. Kilo Elizabeth, 09/12/2021 4:52:42 PM This report has been signed electronically. Number of Addenda: 0 Note Initiated On: 09/12/2021 1:29 PM Scope Withdrawal Time Scope In: Scope Out: 100 Camryn Gautam GET Maldonado TRANSTHORACIC ECHOCARDIOGRAPHIC REPORT [facility] Patient Name: Jesse Luis :1945ge/Sex:76 y.o.male No Echo contrast was used Image quality: Poor acoustic windows with poor image quality Indication: Arrhythmias; Atrial fibrillation/flutter Rhythm: Sinus Septal wall thickness in end diastole: 11.8 mm LV internal dimension in end diastole: 46.3 mm LV posterior wall thickness in end diastole: 11.8 mm LV internal dimension in end systole: 30.1 mm AV Maximum velocity: 2.31 m/s AV Mean gradient: 8.7 mmHg AV Area: 1.99 cm Dimensionless valve index: 0.52 Stroke-volume index: 43.9 ml/m2 Left atrial volume index: 41.2 ml/m2 LEFT ATRIUM: Moderate enlargement (42-48 ml/m2) RIGHT ATRIUM: Normal size LEFT VENTRICLE: LV size: Normal size, Mild concentric hypertrophy, Normal wall motion, LV systolic function is Normal, estimated LVEF 60 %. Diastolic function is severely abnormal (grade 3). RIGHT VENTRICLE: Normal size and normal function INTERATRIAL SEPTUM: Normal INTERVENTRICULAR SEPTUM: Normal AORTIC VALVE: Calcified, Thickened, Mild regurgitation, no stenosis MITRAL VALVE: Leaflets are calcified, Leaflets are thickened,Moderate regurgitation, no stenosis TRICUSPID VALVE: Leaflets are thickened, Mild regurgitation PULMONIC VALVE: Not well visualized, No regurgitation PULMONARY VEINS: Systolic blunting of pulmonary venous flow PULMONARY ARTERIES: Elevated pulmonary pressure, estimated PASP 50-55mmHg INFERIOR VENA CAVA: Normal size with diminished respiratory variation, CVP 8 mmHg AORTA: Normal ascending aorta size PERICARDIUM: No pericardial effusion Conclusion: LV systolic function is preserved with an EF greater than 60% Grade 3 diastolic dysfunction PA systolic pressures estimated 50 to 55 mmHg Thickened valvular leaflets with moderate mitral regurgitation and mild aortic insufficiency Discharge medications and new prescriptions: Medication List START taking these medications [id number] mg Extended Release 24 hour tablet Commonly known as: Cardizem LA Take 1 Tablet (240 mg) by mouth daily. Signed by: Dr. Tien Tony Nations, DO Quantity: 30 Tablet Refills: 0 [id number] mg Tablet, Delayed Release (E.C.) Commonly known as: PROTONIX Take 1 Tablet (40 mg) by mouth 2 times daily before meals. Signed by: Dr. Tien Giordano, DO Quantity: 60 Tablet Refills: 2 Subjective/Events-last exam He is awake and alert. He is confused. He wants someone to stay in his room with him. He denies pain. Objective Exam Vital Signs Vital Signs Date Time Temp Pulse Resp B/P (MAP) Pulse Ox O2 Delivery O2 Flow Rate FiO2 05/10/22 15:00 80 24 127/65 (85) 97 Room Air 05/10/22 11:49 36.6 05/09/22 20:07 2.00 2.00 Capillary Refill : Less Than 3 Seconds General Appearance: No Apparent Distress, Anxious, Chronically ill, Obese Respiratory: Lungs Clear, No Respiratory Distress Cardiovascular: No Murmur, Tachycardia Gastrointestinal: Normal Bowel Sounds, Soft Extremity: Normal Inspection, No Pedal Edema Neurologic/Psychiatric: Alert, Disoriented Skin: Normal Color, Warm/Dry Results/Procedures Lab Laboratory Tests 05/10/22 05:00 Patient resulted labs reviewed. Assessment/Plan Assessment and Plan Assess & Plan/Chief Complaint Supraventricular tachycardia Paroxysmal atrial fibrillation Sick sinus syndrome Cardiology following Transferred back to ICU Started on Amiodarone Dementia Delirium Geodon as needed Ativan as needed Pneumonia Cefepime T2DM Sliding scale HTN HLD BPH Anemia History of TKA Critical Care Critically Ill Patient Diagnosis/Problems Diagnosis/Problems (1) SVT (supraventricular tachycardia) Status: Acute (2) Paroxysmal atrial fibrillation Status: Acute (3) Sick sinus syndrome Status: Acute (4) PNA (pneumonia) Status: Acute (5) Dementia Status: Chronic (6) Delirium Status: Acute Clinical Quality Measures DVT/VTE Risk/Contraindication: Contraindications-Mechi: Other *list below* Other: OR GLORIA REHMAN MD May 10, 2022 16:05
[2022-05-11] MEDS: CEFEPIME INJECTION 1,000 MG in NS (IVPB) 50 ML IV SCH ×4 (02:00→20:21)
[2022-05-11 05:53] LABS: BASOPHILS % (AUTO) 1 % (0-10); EOSINOPHILS # (AUTO) 0.1 10^3/uL (0.0-0.3); EOSINOPHILS % (AUTO) 1 % (0-10); HEMATOCRIT 36 % (40-54); LYMPHOCYTES % (AUTO) 12 % (12-44); MEAN CORPUSCULAR HEMOGLOBIN 29 pg (25-34); MEAN CORPUSCULAR HGB CONC 33 g/dL (32-36); MEAN CORPUSCULAR VOLUME 86 fL (80-99); MEAN PLATELET VOLUME 10.1 fL (9.0-12.2); MONOCYTES # (AUTO) 0.6 10^3/uL (0.0-1.0); MONOCYTES % (AUTO) 8 % (0-12); NEUTROPHILS # (AUTO) 6.3 10^3/uL (1.8-7.8); NEUTROPHILS % (AUTO) 78 % (42-75); PLATELET COUNT 200 10^3/uL (130-400); WHITE BLOOD COUNT 8.1 10^3/uL (4.3-11.0)
[2022-05-11] MEDS: dilTIAZem DRIP 125 MG/100 ML NS IV SCH ×2 (06:04)
[2022-05-11 06:19] LABS: ALBUMIN 3.2 GM/DL (3.2-4.5); BILIRUBIN,TOTAL 0.7 MG/DL (0.1-1.0); CALCIUM 8.6 MG/DL (8.5-10.1); CREATININE SERUM 0.84 MG/DL (0.60-1.30); POTASSIUM 3.8 MMOL/L (3.6-5.0); TOTAL PROTEIN 5.9 GM/DL (6.4-8.2)
--- NOTE | 2022-05-11 07:03 | Progress Note ---
Subjective Date Seen by a Provider: May 11, 2022 Time Seen by a Provider: 15:00 Subjective/Events-last exam Patient continues to be aggressive Precedex required Amiodarone was given which helped heart rate Baumann catheter still in place due to retention Review of Systems Neurological: Confusion Objective Exam Last Set of Vital Signs Vital Signs Date Time Temp Pulse Resp B/P (MAP) Pulse Ox O2 Delivery O2 Flow Rate FiO2 05/11/22 06:00 81 20 168/73 (104) 96 Room Air 05/11/22 04:00 36.8 05/09/22 20:07 2.00 2.00 Capillary Refill : Less Than 3 Seconds I&O Intake and Output 05/11/22 00:00 Intake Total 600 ml Output Total 600 ml Balance 0 ml Intake Oral 550 ml IV Total 50 ml Output Urine Total 600 ml General: Other (Sedated and chronically ill) Lungs: Clear to Auscultation Heart: Regular Rate Results Lab Laboratory Tests 05/11/22 05:42: White Blood Count 8.1, Red Blood Count 4.19L, Hemoglobin 12.0L, Hematocrit 36L, Mean Corpuscular Volume 86, Mean Corpuscular Hemoglobin 29, Mean Corpuscular Hemoglobin Concent 33, Red Cell Distribution Width 13.2, Platelet Count 200, Mean Platelet Volume 10.1, Immature Granulocyte % (Auto) 1, Neutrophils (%) (Auto) 78H, Lymphocytes (%) (Auto) 12, Monocytes (%) (Auto) 8, Eosinophils (%) (Auto) 1, Basophils (%) (Auto) 1, Neutrophils # (Auto) 6.3, Lymphocytes # (Auto) 1.0, Monocytes # (Auto) 0.6, Eosinophils # (Auto) 0.1, Basophils # (Auto) 0.0, Immature Granulocyte # (Auto) 0.1, Sodium Level 137, Potassium Level 3.8, Chloride Level 109H, Carbon Dioxide Level 20L, Anion Gap 8, Blood Urea Nitrogen 21H, Creatinine 0.84, Estimat Glomerular Filtration Rate 90, BUN/Creatinine Ratio 25, Glucose Level 94, Calcium Level 8.6, Corrected Calcium 9.2, Magnesium Level 2.0, Total Bilirubin 0.7, Aspartate Amino Transf (AST/SGOT) 19, Alanine Aminotransferase (ALT/SGPT) 18, Alkaline Phosphatase 50, Total Protein 5.9L, Albumin 3.2 Microbiology 1/3/23 Blood Culture - Preliminary, Resulted No growth 05/06/22 MRSA Screen - Final, Complete MRSA not isolated Assessment/Plan Assessment/Plan Assess & Plan/Chief Complaint Assess & Plan/Chief Complaint Jesse Luis is a 76 YoM PMH of Arthritis, Hx of GIB, and A fib admitted to the ICU for SVT following uncomplicated L TKA. Today is HD#6 and he continues to oscillate between tachy and naga. 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 - After discussion with daughter in law and DPOA, his family wishes that goals of care remain consistent with DNR status and pacemaker placement was declined - Will continue to monitor and treat according to DNR status. L TKA - Resume PT/OT d/t improvement in clinical condition - Cont monitoring WBC - on cefepime for presumed PNA now completed Tremor and agitation - possible ICU delirium as he denies alcohol use in previous two years, - UE tremor L>R - on beta rigo for A Fib, holding currently due to hypotension - agitation improved after giving Thiamine, folic acid, MTV, Mag sulfate, potassium, and glucose. (Banana bag) yesterday Overflow incontinence secondary to BPH - Continue baumann. - consider tamsulosin 0.4 for alleviating BPH symptoms 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 (improving) - Required 4 units in 09/22 - HGB improving 12.8 (05/07) -> 13.1 (05/08) -> 11.4 (05/09) - Continue to monitor - on PPI HTN - borderline hypotensive - monitor BP and EKG HLD - monitor presumed pneumonia - CXR showing atalectasis - WBC 14.1->8.4 - on Cefepime Diabetes mellitus - monitoring glucose levels Deposition: Transfer to ICU will be maintained due to Precedex requirement Diagnosis/Problems Diagnosis/Problems (1) SVT (supraventricular tachycardia) Status: Acute Clinical Quality Measures DVT/VTE Risk/Contraindication: Contraindications-Mechi: Other *list below* Other: OR CAT OLEARY DO May 11, 2022 07:03
[2022-05-11] MEDS ORDERED: ZIPRASIDONE 20 MG INJ (GEODON) VIAL IM PRN (08:15)
[2022-05-11] MEDS ORDERED: WATER (STERILE) FOR INJ 10 ML BTL INJ SCH (08:15)
[2022-05-11] MEDS ORDERED: DexMEDEtomidine 250 ML DRIP 250 ML IV SCH (08:15)
--- NOTE | 2022-05-11 08:19 | Tele-ICU Progress Note ---
Subjective Date Seen by a Provider: May 11, 2022 Time Seen by a Provider: 10:38 Subjective/Events-last exam Tele-ICU Physician , Progress note) Available chart/ vitals / labs / Images reviewed H&P is from ER notes Patient's information available about PMH, allergy reviewed in EMR. ROS as per chart and RN report Video assessment done using teleICU camera, rest of exam as per RN Discussed with RN. He is a 76-year-old white male apparently fdc patient reportedly had a uncomplicated left knee replacement at [facility] in [place] and a 4 hours after the surgery reportedly found to have a atrial fibrillation and with rapid ventricular rate. Subsequently he required ICU admission and cardiology c onsultation hence he is transferred to [facility] via [facility] in [place]. Currently his heart rate is controlled on 5 mg of Cardizem drip however his heart rate going up and down suggestive of for sinus node dysfunction. Patient already seen by cardiology. 05/08/22. today he is confused and refusing po pills. Just now restarted his iv. HR is 145/mt with afib rvr. 05/10/2022. he is transfered back to icu from medical floor due to afib with rvr. seen by online services manager. started on Cardizem drip. still hr is 164/mt. more alert and talking but still confused. 05/11/2022. today his hr controlled at 87/mt. but he is agitated and pulling iv's and trying to beat care givers. on amiodorone, but QTC normal. Impression 1. Status post left knee replacement 2. Paroxysmal atrial fibrillation with possible sinus node dysfunction, currently has RVR 3. History of hypertension 4. History of hyperlipidemia 5. Type 2 diabetes mellitus. 6. Confusion/ ams probably is due to ICU psychosis Recommendations 1. Management of atrial fibrillation per cardiology. Anticoagulation could not be given as patient recently had a upper GI bleed secondary to the use of aspirin and NSAID. 2. Diabetes management per primary care 3. Echocardiography per cardiology 4. Care coordination with bedside consultants and primary care physician. 5. Physical therapy. 6. precedex iv ordered. 7. will give geodon im prn x2 days for agitation. Max dose 40mg in 24hrs. 8. Continue monitor mental status. Care coordination with bedside consultants and primary care physician. Sepsis Event Evaluation Height, Weight, BMI Height: '" Weight: lbs. oz. kg; 30.93 BMI Method: Exam Exam Patient acknowledged, consented, and participated in this virtual visit which was conducted using real time audio/video Vital Signs Date Time Temp Pulse Resp B/P (MAP) Pulse Ox O2 Delivery O2 Flow Rate FiO2 05/11/22 08:00 36.7 05/11/22 06:00 81 20 168/73 (104) 96 Room Air 05/11/22 05:00 80 14 149/77 (101) 96 Room Air 05/11/22 04:00 36.8 05/11/22 04:00 83 19 147/80 (102) 97 Room Air 05/11/22 04:00 97 Room Air 05/11/22 03:00 80 18 120/77 (91) 98 Room Air 05/11/22 02:00 72 13 155/82 (106) 98 Room Air 05/11/22 01:00 72 05/11/22 01:00 70 14 106/74 (85) 99 Room Air 05/11/22 00:00 63 18 144/77 (99) 98 Room Air 05/11/22 00:00 36.6 05/11/22 00:00 36.8 05/10/22 23:59 97 Room Air 05/10/22 23:00 63 20 136/73 (94) 97 Room Air 05/10/22 22:00 65 25 129/71 (90) 97 Room Air 05/10/22 21:00 80 23 147/74 (98) 96 Room Air 05/10/22 20:00 85 24 155/79 (104) 96 Room Air 05/10/22 20:00 37.1 05/10/22 20:00 97 Room Air 05/10/22 20:00 37.0 05/10/22 19:00 88 24 159/77 (104) 97 Room Air 05/10/22 19:00 90 05/10/22 18:00 80 10 153/79 (103) 97 Room Air 05/10/22 17:00 78 20 156/77 (103) 95 Room Air 05/10/22 16:00 79 28 137/73 (94) 98 Room Air 05/10/22 16:00 97 Room Air 05/10/22 16:00 37.1 05/10/22 15:00 80 24 127/65 (85) 97 Room Air 05/10/22 14:00 161 11 106/67 (80) 98 Room Air 05/10/22 13:00 165 18 118/87 (97) 97 Room Air 05/10/22 13:00 164 05/10/22 12:00 163 20 103/76 (85) 98 Room Air 05/10/22 12:00 97 Room Air 05/10/22 11:49 36.6 05/10/22 11:00 165 11 112/77 (89) 97 Room Air 05/10/22 10:00 165 26 92/54 (67) 95 Room Air 05/10/22 09:00 165 28 97/75 (82) 97 Room Air I & O 05/11/22 07:00 Intake Total 550 ml Output Total 500 ml Balance 50 ml Height & Weight Height: '" Weight: lbs. oz. kg; 30.93 BMI Method: General Appearance: No Apparent Distress, Anxious, Chronically ill, Obese HEENT: PERRL/EOMI, Normal ENT Inspection, Pharynx Normal Neck: Full Range of Motion, Normal Inspection, Non Tender, Supple, Carotid Bruit Respiratory: Lungs Clear, No Respiratory Distress Cardiovascular: No Murmur, Tachycardia Capillary Refill: Less Than 3 Seconds Extremity: Normal Inspection, No Pedal Edema Neurologic/Psychiatric: Alert, Disoriented Skin: Normal Color, Warm/Dry Lymphatic: No Adenopathy Results Lab Laboratory Tests 05/10/22 05:00 05/11/22 05:42 Assessment/Plan Assessment/Plan as above Critical Care: Critically Ill Patient Time spent with patient (mins): 26 YOBANY BASSETT MD May 11, 2022 08:19
[2022-05-11] MEDS ORDERED: ENOXAPARIN 40 MG/0.4 ML (LOVENOX) SYR SC ONE (09:45)
--- NOTE | 2022-05-11 09:49 | Cardiology Progress Note ---
Progress Note-Cardiology Events since last exam Date Seen by Provider: May 11, 2022 Time Seen by Provider: 09:44 Events since last exam We are following him due to atrial fibrillation. He remains in the ICU. This morning he was combative with staff and he was given a dose of Ativan. When I saw him and this morning, he was sitting up in a chair but very drowsy. He was not answering questions. I was not able to obtain any history from the patient this morning in regards to his symptoms. I did speak with his nurse. His nurse does not feel as though the patient is alert enough to take oral medication this morning. Certain portions of this document may have been dictated utilizing voice recognition technology. Inherent to this technology, typographical and grammatical errors may exist. As much as I am diligent to identify and correct these mistakes, some errors may remain in the document. Vitals Last set of Vitals Signs Vital Signs 05/09/22 05/11/22 05/11/22 20:07 07:00 09:00 Pulse 66 Resp 16 B/P (MAP) 113/64 (80) Pulse Ox 92 O2 Delivery Room Air O2 Flow Rate 2.00 2.00 Labs Labs Laboratory Tests 05/11/22 05:42 Exam Vital Signs Vital Signs Date Time Temp Pulse Resp B/P (MAP) Pulse Ox O2 Delivery O2 Flow Rate FiO2 05/11/22 09:00 66 113/64 (80) 92 Room Air 05/11/22 08:00 36.7 05/11/22 07:00 16 05/09/22 20:07 2.00 2.00 Physical Exam General: Very drowsy from sedation. No acute distress. Eye: No xanthelasma. HENT: Normocephalic. Neck: Jugular venous pressure does not appear elevated. Respiratory: Lungs are clear to auscultation. Respirations are non-labored. Breath sounds are equal. Symmetrical chest wall expansion. Cardiovascular: Normal rate. Irregular rhythm. No murmur. No gallop. Trace left pretibial edema. Gastrointestinal: Soft. Normal bowel sounds. Skin: Warm. Dry. Neurologic: Somnolent from sedation. At baseline during this hospitalization he has only been oriented to person. Cranial nerves 3-11 grossly intact. Psychiatric: Somnolent from sedation. Labs Laboratory Tests Test 05/11/22 05:42 Range/Units White Blood Count 8.1 4.3-11.0 10^3/uL Red Blood Count 4.19 L 4.30-5.52 10^6/uL Hemoglobin 12.0 L 13.3-17.7 g/dL Hematocrit 36 L 40-54 % Mean Corpuscular Volume 86 80-99 fL Mean Corpuscular Hemoglobin 29 25-34 pg Mean Corpuscular Hemoglobin Concent 33 32-36 g/dL Red Cell Distribution Width 13.2 10.0-14.5 % Platelet Count 200 130-400 10^3/uL Mean Platelet Volume 10.1 9.0-12.2 fL Immature Granulocyte % (Auto) 1 % Neutrophils (%) (Auto) 78 H 42-75 % Lymphocytes (%) (Auto) 12 12-44 % Monocytes (%) (Auto) 8 0-12 % Eosinophils (%) (Auto) 1 0-10 % Basophils (%) (Auto) 1 0-10 % Neutrophils # (Auto) 6.3 1.8-7.8 10^3/uL Lymphocytes # (Auto) 1.0 1.0-4.0 10^3/uL Monocytes # (Auto) 0.6 0.0-1.0 10^3/uL Eosinophils # (Auto) 0.1 0.0-0.3 10^3/uL Basophils # (Auto) 0.0 0.0-0.1 10^3/uL Immature Granulocyte # (Auto) 0.1 0.0-0.1 10^3/uL Sodium Level 137 135-145 MMOL/L Potassium Level 3.8 3.6-5.0 MMOL/L Chloride Level 109 H 98-107 MMOL/L Carbon Dioxide Level 20 L 21-32 MMOL/L Anion Gap 8 5-14 MMOL/L Blood Urea Nitrogen 21 H 7-18 MG/DL Creatinine 0.84 0.60-1.30 MG/DL Estimat Glomerular Filtration Rate 90 BUN/Creatinine Ratio 25 Glucose Level 94 70-105 MG/DL Calcium Level 8.6 8.5-10.1 MG/DL Corrected Calcium 9.2 8.5-10.1 MG/DL Magnesium Level 2.0 1.6-2.4 MG/DL Total Bilirubin 0.7 0.1-1.0 MG/DL Aspartate Amino Transf (AST/SGOT) 19 5-34 U/L Alanine Aminotransferase (ALT/SGPT) 18 0-55 U/L Alkaline Phosphatase 50 40-136 U/L Total Protein 5.9 L 6.4-8.2 GM/DL Albumin 3.2 3.2-4.5 GM/DL Diagnosis/Problems Diagnosis/Problems (1) Paroxysmal atrial fibrillation Status: Acute Assessment & Plan: On 05/09 he was in sinus rhythm and sinus bradycardia. As above, due to borderline low blood pressures and intermittent bradycardia, I discontinued the short acting oral diltiazem on 05/09. Since he is of advanced age and has recurrent tachycardia, I stopped his flecainide. I started him on amiodarone infusion on 05/10 and he converted to sinus rhythm. I will transition him to oral amiodarone. This will need to be tapered following discharge. He had not been on oral anticoagulation due to reported history of gastrointestinal hemorrhaging but during his hospitalization here, his hemoglobin level has been reasonably stable. I started him on apixaban 5 mg twice daily on 05/10. I have ordered a stool for Hemoccult. Since he had been going in and out of atrial fibrillation on 05/09, even though he had not been on oral anticoagulation, the risk of a stroke should be somewhat lower if he converts back to sinus rhythm since he was doing this spontaneously on 05/09. Unfortunately, due to the patient's disorientation, he does not recall the name of his regular design intern at the outside facility. The nurse has been holding his oral medications this morning due to his confusion. I do not feel it is necessary to give him IV medication unless the atrial fibrillation recurs and we need to put him back on diltiazem infusion. (2) Supraventricular tachycardia Assessment & Plan: He was also having some supraventricular tachycardia. This had improved with oral diltiazem but then he developed some bradycardia. His blood pressure is running borderline low at times. He is back on his home dose of metoprolol tartrate. The amiodarone should also help with this arrhythmia. (3) Sick sinus syndrome Status: Acute Assessment & Plan: As above, he had been having some bradycardia and pauses while on both beta-rigo and diltiazem. I made adjustments to his medication as outlined above and his heart rates improved. There is no indication for temporary or permanent pacemaker at this time. (4) Primary hypertension Assessment & Plan: As above, his blood pressures have been intermittently running borderline low. We will continue to monitor his blood pressure closely and adjust his medications accordingly. (5) History of gastrointestinal hemorrhage Assessment & Plan: As above, his hemoglobin level has been reasonably stable during this admission. The previous gastrointestinal hemorrhage apparently occurred at an outside hospital. I started him him on apixaban for the atrial fibrillation on 05/10 and we will need to watch his hemoglobin level closely. As above, I have also ordered a stool for Hemoccult. (6) Pulmonary hypertension Assessment & Plan: Exact etiology unclear. This will need to be followed longitudinally. DONNIE RIOS JR, MD May 11, 2022 09:49
--- NOTE | 2022-05-11 10:26 | Diagnostic Imaging Report ---
INDICATION: Shortness of breath. COMPARISON: 05/06/2022. FINDINGS: The lungs demonstrate no airspace consolidation or large effusion. There is no pneumothorax. The lungs are slightly diminished. The heart size and mediastinal contours are stable. The central pulmonary vascularity appears appropriate. IMPRESSION: Mildly diminished lung volumes. No plain film findings of pneumonia or edema. Dictated by: Dictated on workstation # [id number]
[2022-05-11] MEDS: DOCUSATE SODIUM 100 MG (COLACE) CAP PO SCH ×2 (10:28→20:21)
[2022-05-11] MEDS: APIXABAN 5 MG (ELIQUIS) TABLET PO SCH ×2 (10:28→20:21)
[2022-05-11] MEDS: FERROUS SULF 325 MG (IRON) TAB PO SCH (10:28)
[2022-05-11] MEDS: meTOprolol TARTRATE 50 MG (LOPRESSOR) TAB PO SCH ×2 (10:29→20:21)
[2022-05-11] MEDS: SENNOSIDES 8.6 MG (SENOKOT) TAB PO SCH ×2 (10:29→20:21)
[2022-05-11] MEDS: PANTOPRAZOLE 40 MG (PROTONIX) TAB PO SCH ×2 (10:29→20:21)
[2022-05-11] MEDS: AMIODARONE 200 MG (CORDARONE) TAB PO SCH (20:21)
[2022-05-12 05:25] LABS: BASOPHILS # (AUTO) 0.1 10^3/uL (0.0-0.1); BASOPHILS % (AUTO) 1 % (0-10); EOSINOPHILS # (AUTO) 0.3 10^3/uL (0.0-0.3); EOSINOPHILS % (AUTO) 5 % (0-10); HEMATOCRIT 35 % (40-54); HEMOGLOBIN 11.4 g/dL (13.3-17.7); LYMPHOCYTES # (AUTO) 1.2 10^3/uL (1.0-4.0); LYMPHOCYTES % (AUTO) 21 % (12-44); MEAN CORPUSCULAR HEMOGLOBIN 28 pg (25-34); MEAN CORPUSCULAR HGB CONC 32 g/dL (32-36); MEAN CORPUSCULAR VOLUME 87 fL (80-99); MEAN PLATELET VOLUME 9.8 fL (9.0-12.2); MONOCYTES # (AUTO) 0.5 10^3/uL (0.0-1.0); MONOCYTES % (AUTO) 10 % (0-12); NEUTROPHILS # (AUTO) 3.4 10^3/uL (1.8-7.8); NEUTROPHILS % (AUTO) 62 % (42-75); PLATELET COUNT 186 10^3/uL (130-400); WHITE BLOOD COUNT 5.5 10^3/uL (4.3-11.0)
[2022-05-12 05:35] LABS: POTASSIUM 4.1 MMOL/L (3.6-5.0)
[2022-05-12 05:36] LABS: CALCIUM 8.6 MG/DL (8.5-10.1)
[2022-05-12 05:37] LABS: TOTAL PROTEIN 5.6 GM/DL (6.4-8.2)
[2022-05-12 05:39] LABS: BILIRUBIN,TOTAL 0.7 MG/DL (0.1-1.0)
[2022-05-12 05:41] LABS: CREATININE SERUM 0.75 MG/DL (0.60-1.30)
[2022-05-12] MEDS: dilTIAZem DRIP 125 MG/100 ML NS IV SCH ×2 (05:46)
--- NOTE | 2022-05-12 06:48 | Occ Therapy Progress Note ---
Therapy Progress Note Decline in medical status. OT to dismiss pt. Pt will need new orders when medically stable and able to actively/safely participate in skilled therapy. TANIYA VARGHESE May 12, 2022 06:48
--- NOTE | 2022-05-12 07:38 | Physical Therapy Progress Note ---
Therapy Progress Note Due to patient readmitted to ICU from [address] [place] [address], PT will require new orders to resume skilled therapy. RUBENS GAGNON PT May 12, 2022 07:38
[2022-05-12] MEDS: DOCUSATE SODIUM 100 MG (COLACE) CAP PO SCH ×2 (09:23→19:54)
[2022-05-12] MEDS: PANTOPRAZOLE 40 MG (PROTONIX) TAB PO SCH ×2 (09:24→19:54)
[2022-05-12] MEDS: APIXABAN 5 MG (ELIQUIS) TABLET PO SCH ×2 (09:24→19:54)
[2022-05-12] MEDS: SENNOSIDES 8.6 MG (SENOKOT) TAB PO SCH ×2 (09:24→19:54)
[2022-05-12] MEDS: meTOprolol TARTRATE 50 MG (LOPRESSOR) TAB PO SCH ×2 (09:24→19:54)
[2022-05-12] MEDS: AMIODARONE 200 MG (CORDARONE) TAB PO SCH ×2 (09:24→19:54)
[2022-05-12] MEDS: FERROUS SULF 325 MG (IRON) TAB PO SCH (09:24)
--- NOTE | 2022-05-12 11:11 | Progress Note ---
SUNIL PARTIDA I 05/12/22 1111: Subjective Date Seen by a Provider: May 12, 2022 Time Seen by a Provider: 11:00 Subjective/Events-last exam Mr. Luis is a 76 year old male with a PMH of arthritis, GI Bleed, and Afib admitted to ICU for SVT s/p uncomplicated L TKA at [facility]. He continues cares on the floor. He is upset that his knee replacement has taken an alternative course. His R knee had excruciating pain when he moved to be transferred to the floor - which has mostly resolved. His left knee can bear weight and he is anxious to progress with physical therapy. Mentally he feels unsafe and anxious due to repeated bouts of hallucinations and says he has difficulty determining what is real. He repeats questions, and expresses the need for a shower. Review of Systems General: Night Sweats, Fatigue HEENT: Visual Changes (Notes new blurry vision at distance) Pulmonary: No Dyspnea, No Cough, No Pleuritic Chest Pain Cardiovascular: Other; No: Chest Pain, Palpitations Gastrointestinal: No: Nausea, Vomiting Genitourinary: No Dysuria, No Frequency Objective Exam Last Set of Vital Signs Vital Signs Date Time Temp Pulse Resp B/P (MAP) Pulse Ox O2 Delivery O2 Flow Rate FiO2 05/12/22 09:30 Room Air 05/12/22 08:00 52 132/57 (82) 96 05/12/22 08:00 36.5 05/12/22 07:00 26 05/09/22 20:07 2.00 2.00 Capillary Refill : Less Than 3 Seconds I&O Intake and Output 05/12/22 00:00 Intake Total 550 ml Output Total 500 ml Balance 50 ml Intake Oral 100 ml IV Total 450 ml Output Urine Total 500 ml General: Alert, Cooperative, Mild Distress, Other (Alerted to place after redirection) HEENT: Atraumatic, PERRLA Neck: Supple, No JVD, No Thyromegaly Lungs: Clear to Auscultation, Normal Air Movement Heart: Regular Rate, Normal S1, Normal S2 Abdomen: Normal Bowel Sounds, Soft Extremities: No Edema Skin: No Rashes Psych/Mental Status: Other (Despondent) Results Lab Laboratory Tests 05/12/22 05:02: White Blood Count 5.5, Red Blood Count 4.06L, Hemoglobin 11.4L, Hematocrit 35L, Mean Corpuscular Volume 87, Mean Corpuscular Hemoglobin 28, Mean Corpuscular Hemoglobin Concent 32, Red Cell Distribution Width 13.2, Platelet Count 186, Mean Platelet Volume 9.8, Immature Granulocyte % (Auto) 1, Neutrophils (%) (Auto) 62, Lymphocytes (%) (Auto) 21, Monocytes (%) (Auto) 10, Eosinophils (%) (Auto) 5, Basophils (%) (Auto) 1, Neutrophils # (Auto) 3.4, Lymphocytes # (Auto) 1.2, Monocytes # (Auto) 0.5, Eosinophils # (Auto) 0.3, Basophils # (Auto) 0.1, Immature Granulocyte # (Auto) 0.0, Sodium Level 139, Potassium Level 4.1, Chloride Level 109H, Carbon Dioxide Level 18L, Anion Gap 12, Blood Urea Nitrogen 17, Creatinine 0.75, Estimat Glomerular Filtration Rate 94, BUN/Creatinine Ratio 23, Glucose Level 89, Calcium Level 8.6, Corrected Calcium 9.4, Magnesium Level 2.0, Total Bilirubin 0.7, Aspartate Amino Transf (AST/SGOT) 16, Alanine Aminotransferase (ALT/SGPT) 19, Alkaline Phosphatase 47, Total Protein 5.6L, Albumin 3.0L Microbiology 05/06/22 Blood Culture - Preliminary, Resulted No growth 05/06/22 MRSA Screen - Final, Complete MRSA not isolated Assessment/Plan Assessment/Plan Assess & Plan/Chief Complaint Jesse Luis is a 76 YoM PMH of Arthritis, Hx of GIB, and A fib admitted to the ICU for SVT following uncomplicated L TKA. He continues to be borderline hypotensive and oscillates between tachy and richard. Paroxysmal A fib with RVR - Tachy-richard syndrome, holding beta rigo - Continuing diltiazem for tachycardic episodes - Several periods of tachycardia (1/5) and 2 periods of 3-5 second asystole when converting between rhythms - Back in sinus rhythm this morning - Restart anticoagulation due to stable hemoglobin - Cardiology recommends placing pacemaker for tachy-richard syndrome. - After discussion with daughter in law and DPOA, his family wishes that goals of care remain consistent with DNR status and pacemaker placement was declined - Will continue to monitor and treat according to DNR status. SVT - Per cardiology, adjusting metoprolol and diltiazem Sick sinus syndrom - per cardiology, adjusting metoprolol and diltiazem L TKA - Resume PT/OT d/t improvement in clinical condition - WBC monitored - off abx R knee pain - osteoarthritis - RTKA is set to be done 3 months following LTKA Tremor and agitation - possible ICU delirium as he denies alcohol use in previous two years, - UE tremor L>R - beta rigo for A Fib, holding currently due to hypotension Uriary Retnention - Overflow incontinence secondary to BPH - Continue baumann. - consider tamsulosin 0.4 for alleviating BPH symptoms 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 (improving) - Required 4 units in 09/22 - HGB improving 12.8 (05/07) -> 13.1 (05/08) -> 11.4 (05/09) - on PPI, apixaban, continue to monitor HTN - borderline hypotensive - monitor BP and EKG HLD - monitor - continue home statin presumed pneumonia (improved) - CXR showing atalectasis, resolved 05/11 - WBC wnl - off abx Diabetes mellitus - monitoring glucose levels Deposition: Continue floor cares Clinical Quality Measures DVT/VTE Risk/Contraindication: Contraindications-Mechi: Other *list below* Other: OR BRIDGETT OLEARY DO 05/12/222151: Assessment/Plan Assessment/Plan Assess & Plan/Chief Complaint Assessment: Afib with RVR Tachy Richard syndrome SVT Delirium Plan: Transfer to 4th floor Amiodarone Anticoagulation PT and OT Supervisory-Addendum Brief Verification & Attestation Participated in pt care: history, MDM, physical Personally performed: exam, history, MDM, supervision of care Care discussed with: Medical Student Procedures: n/a Results interpretation: Verified all documentation Verification and Attestation of Medical Student E/M Service A medical student performed and documented this service in my presence. I reviewed and verified all information documented by the medical student and made modifications to such information, when appropriate. I personally performed the physical exam and medical decision making. Bridgett Oleary, May 12, 2022,21:52 SUNIL PARTIDA I May 12, 2022 11:11 BRIDGETT OLEARY DO May 12, 2022 21:52
--- NOTE | 2022-05-12 11:16 | Cardiology Progress Note ---
Subjective Date Seen by Provider: May 12, 2022 Time Seen by Provider: 11:14 Subjective/Events-last exam Patient is laying down in bed, confused, less agitated Review of Systems General: No Chills, No Night Sweats; Fatigue; No Malaise, No Appetite, No Other HEENT: No Head Aches, No Visual Changes, No Eye Pain, No Ear Pain, No Dysphasia, No Sinus Congestion, No Post Nasal Drip, No Sore Throat, No Other Pulmonary: No Dyspnea, No Cough, No Pleuritic Chest Pain, No Other Cardiovascular: No: Chest Pain, Palpitations, Orthopnea, Paroxysmal Noc. Dyspnea, Edema, Lt Headedness, Other Objective-Cardiology Exam Last Set of Vital Signs Vital Signs 05/09/22 05/12/22 05/12/22 05/12/22 20:07 07:00 08:00 11:00 Temp 36.5 Pulse 64 Resp 26 B/P (MAP) 54/38 (43) Pulse Ox 96 O2 Delivery Room Air O2 Flow Rate 2.00 2.00 I&O Intake and Output 05/12/22 00:00 Intake Total 550 ml Output Total 500 ml Balance 50 ml Intake Oral 100 ml IV Total 450 ml Output Urine Total 500 ml General: Alert, Other (Confused, not following commands) HEENT: Atraumatic, PERRLA Neck: Supple, No JVD, No Thyromegaly Lungs: Clear to Auscultation Heart: Regular Rate Abdomen: Normal Bowel Sounds, Soft Extremities: No Edema, Other (L knee tenderness) Skin: No Rashes, No Breakdown, No Significant Lesion Neuro: Normal Speech Psych/Mental Status: Other (Confused, agitated.) Results Lab Laboratory Tests 05/12/22 05:02 A/P-Cardiology Admission Diagnosis Paroxysmal atrial fibrillation Sinus node dysfunction Hypertension Hyperlipidemia. Assessment/Plan Paroxysmal atrial fibrillation alternating with sinus node dysfunction Tacky bradycardia episode Had multiple pauses up to 3.5 seconds pause and 4 seconds pause, had few episodes of bradycardia with a heart rate in the 20s Currently back in sinus rhythm. Tolerating current medications well. I will discuss with Dr. Jimenez regarding his management. He would benefit from pacemaker placement, might be good candidate for leadless pacemaker. Currently in sinus rhythm, he was switched to amiodarone and tolerating it well. [id number] score 4. Patient is unable to tolerate oral anticoagulation due to recent GI bleed. Acute change in mental status, agitation, confusion, was on Precedex drip Currently still lethargic, have mild agitation. Not cooperative. Status post knee replacement. Done at [facility]. Recovering Starting physical therapy 2D echo from [facility] reported to have left atrial enlargement, mild LVH with ejection fraction 60%, grade 3 diastolic dysfunction, pulmonary hypertension with PA pressure 50 to 55 mmHg Hypertension, currently borderline hypotensive, monitor blood pressure Hyperlipidemia, monitor lipids. Essential tremor, starting low-dose beta-blockers and evaluate tolerance and response Diabetes mellitus, followed and managed by primary care physician Status post recent GI bleed secondary to the use of aspirin and NSAID. Requiring blood transfusion. Continue to monitor LORRIE FULTON MD May 12, 2022 11:16
--- NOTE | 2022-05-12 13:31 | Physical Therapy Evaluation ---
PT Evaluation-General Medical Diagnosis Admission Date May 06, 2022 at 18:35 Medical Diagnosis: SVT Onset Date: May 06, 2022 Therapy Diagnosis Therapy Diagnosis: generalized weakness/debility Precautions Precautions/Isolations: Fall Prevention, Standard Precautions Weight Bear Status Left Lower Extremity: Left Weight Bearing/Tolerated Referral Physician: Bridgett Daniels DO Reason for Referral: Evaluation/Treatment Medical History Pertinent Medical History: Atrial Fib, Arthritis Current History transfer from [address] [place] [address] due to tachycardia Reviewed History: Yes Social History Home: Assisted Prior Prior Level of Function SCALE: Activities may be completed with or without assistive devices. 3-Pevthitvcy-lrprfae completes the activity by him/herself with no assistance from a helper. 5-Set-up or Clean-up Assistance-helper sets up or cleans up; patient completes activity. [place] assists only prior to or following the activity. 4-Supervision or Touching Assistance-helper provides verbal cues and/or touching/steadying and/or contact guard assistance as patient completes activity. Assistance may be provided throughout the activity or intermittently. 3-Partial/Moderate Assistance-helper does LESS THAN HALF the effort. [place] lifts, holds or supports trunk or limbs, but provides less than half the effort. 2-Substantial/Maximal Assistance-helper does MORE THAN HALF the effort. [place] lifts or holds trunk or limbs and provides more than half the effort. 2-Hneezloeu-srfvwb does ALL the effort. Patient does none of the effort to complete the activity. Or, the assistance of 2 or more helpers is required for the patient to complete the activity. If activity was not attempted, code reason: 7-Patient Refused. 9-Not Applicable-not attempted and the patient did not perform the activity before the current illness, exacerbation or injury. 10-Not Attempted due to Environmental Limitations-(lack of equipment, weather restraints, etc.). 88-Not Attempted due to Medical Conditions or Safety Concerns. Bed Mobility: 2 Transfers (B,C,W/C): 2 Gait: 9 Indoor Mobility (Ambulation): Needed Some Help Prior Devices Use: Manual wheelchair, Walker PT Evaluation-Current Subjective Patient alert by confused. Agrees to PT. Pain Numeric Pain Scale: 8 Location: Left Location Body Site: Knee Pain Description: Acute Comment: FLACC/patient yelling and slightly combative Objective Patient Orientation: Confused ROM/Strength ROM Lower Extremities left knee flexion 80 degrees with 10 degrees extension/right LE WFL Strength Lower Extremities right LE 3+/5 grossly/left LE 3-/5 grossly Integumentary/Posture Bowel Incontinence: No Bladder Incontinence: No Posture trunk flexed posture Neuromuscular (Tone, Coordination, Reflexes) grossly intact Sensory Vision: Wears Glasses Hearing: Functional Hand Dominance: Right Sensation Right Lower Extremit: Intact Sensation Left Lower Extremity: Intact Transfers Lying to Sitting/Side of Bed(Q: 2 Sit to Stand (QC): 2 Chair/Rxt-qe-Hbpfv Xfer(QC): 2 Gait Does the Patient Walk?: No and Walking Goal IS indicated Walk 10 feet (QC): 88 Balance Sitting Static: Fair Sitting Dynamic: Fair Standing Static: Poor Standing Dynamic: Poor Assessment/Needs Patient very resistive with all mobility due to left knee pain. Patient remain confused. Patient up in recliner with needs met and chair alarm activated. Rehab Potential: Guarded PT [facility] Goals Buncher Operator Goals PT Buncher Operator Goals Time Frame: May 31, 2022 Roll Left & Right (QC): 4 Sit to Lying (QC): 4 Lying-Sitting on Side/Bed(QC): 4 Sit to Stand (QC): 4 (SBA) Chair/Edr-pa-Fgxis Xfer(QC): 4 (SBA) Walk 10 feet (QC): 4 (SBA) PT Plan Problem List Problem List: Activity Tolerance, Functional Strength, Safety, Balance, Gait, Transfer, Bed Mobility, ROM Treatment/Plan Treatment Plan: Continue Plan of Care Treatment Plan: Bed Mobility, Education, Functional Activity Glenny, Functional Strength, Gait, Safety, Therapeutic Exercise, Transfers Treatment Duration: May 14, 2022 Frequency: 6 times per week Estimated Hrs Per Day: .25 hour per day Discharge Recommendations Therapy Discharge Recommendati: Other, See Comments (alf ) Time Time In: 1230 Time Out: 1244 DATE: May 12, 2022 Total Billed Treatment Time: 14 Total Billed Treatment 1 visit [facility] 14 min RUBENS GAGNON PT May 12, 2022 13:31
--- NOTE | 2022-05-12 13:40 | Occupational Therapy Eval ---
OT Evaluation-General/PLF Medical Diagnosis Admission Date May 06, 2022 at 18:35 Medical Diagnosis: SVT Onset Date: May 06, 2022 Therapy Diagnosis Therapy Diagnosis: decreased ADL status Precautions Precautions/Isolations: Fall Prevention, Standard Precautions Weight Bear Status Weight Bearing Restriction: Weight Bearing/Tolerated Location Restriction: L LE Referral Physician: Bridgett Daniels DO Referral Reason: Evaluation/Treatment Medical History Pertinent Medical History: Atrial Fib, Arthritis Current History Pt underwent uncomplicated L tka, 4 hours post op noted tachycarida and EKG revealed SVT requiring ICU admission. Social History Home: Intermediate ADL-Prior Level of Function SCALE: Activities may be completed with or without assistive devices. 3-Xsnadqppin-dcviouq completes the activity by him/herself with no assistance from a helper. 5-Set-up or Clean-up Assistance-helper sets up or cleans up; patient completes activity. [place] assists only prior to or following the activity. 4-Supervision or Touching Assistance-helper provides verbal cues and/or touching/steadying and/or contact guard assistance as patient completes activity. Assistance may be provided throughout the activity or intermittently. 3-Partial/Moderate Assistance-helper does LESS THAN HALF the effort. [place] lifts, holds or supports trunk or limbs, but provides less than half the effort. 2-Substantial/Maximal Assistance-helper does MORE THAN HALF the effort. [place] lifts or holds trunk or limbs and provides more than half the effort. 4-[place]-jbcgjl does ALL the effort. Patient does none of the effort to complete the activity. Or, the assistance of 2 or more helpers is required for the patient to complete the activity. If activity was not attempted, code reason: 7-Patient Refused. 9-Not Applicable-not attempted and the patient did not perform the activity before the current illness, exacerbation or injury. 10-Not Attempted due to Environmental Limitations-(lack of equipment, weather restraints, etc.). 88-Not Attempted due to Medical Conditions or Safety Concerns. ADL PLOF Comments Pt unable to provide much information about PLOF. Pt indicates he could get up and go to the bathroom, holding onto [place]/windows/bed by himself. For functional mobility he uses his feet and propels a w/c. Self Care: Needed Some Help Functional Cognition: Needed Some Help OT Current Status Subjective Pt in ICU, being transferred to 4th floor med/surge unit by [employer] machine assembler. Mental Status/Objective Patient Orientation: Person, Place Attachments: New Catheter, Telemetry Current Glasses/Contacts: Yes Hand Dominance: Right ADL-Treatment Eating (QC): 5 Oral Hygiene (QC): 4 Lower Body Dressing (QC): 1 (2 person assist) Toileting Hygiene (QC): 1 (2 person assist) Other Treatments Pt transported from ICU to 4th floor via recliner. Pt transferred from recliner to bed, max A x2. Max A sit to supine transfer. Pt's lunch present, set up assistance required with meals. Post tx, pt in bed, call light in reach and all needs met, chair alarm activated. Education OT Patient Education: Correct positioning, Energy conservation, Modified ADL techniques, Progress toward Goal/Update tx plan, Purpose of tx/functional activities, Rehab process Teaching Recipient: Patient Teaching Methods: Discussion Response to Teaching: Verbalize Understanding OT Senior Care Goals Senior Care Goals Time Frame: May 23, 2022 Eating (QC): 5 Oral Hygiene (QC): 5 Toileting Hygiene (QC): 3 Shower/Bathe Self (QC): 3 Upper Body Dressing (QC): 4 Lower Body Dressing (QC): 3 On/Off Footwear (QC): 2 Additional Goals: 1-Demonstrate ADL Tasks, 2-Verbalize Understanding, 3- ImproveStrength/Glenny 1=Demonstrate adherence to instructed precautions during ADL tasks. 2=Patient will verbalize/demonstrate understanding of assistive devices/modifications for ADL. 3=Patient will improve strength/tolerance for activity to enable patient to perform ADL's. OT Education/Plan Problem List/Assessment Assessment: Decreased Activ Tolerance, Decreased UE Strength, Impaired Funct Balance, Impaired I ADL's, Impaired Self-Care Skills Discharge Recommendations Plan/Recommendations: Continue POC Treatment Plan/Plan of Care Patient would benefit from OT for education, treatment and training to promote independence in ADL's, mobility, safety and/or upper extremity function for ADL's. Plan of Care: ADL Retraining, Cognitive Retraining, Functional Mobility, Group Exercise/Act as Ind, UE Funct Exercise/Act, W/C Management Training Treatment Duration: May 23, 2022 Frequency: 3 times per week (3-5x/week ) Estimated Hrs Per Day: .25 hour per day Agreement: Yes Rehab Potential: Guarded Time Start Time: 13:04 Stop Time: 13:15 DATE: May 12, 2022 Total Time Billed (hr/min): 9 Billed Treatment Time 1, GONZALO JESUS OT May 12, 2022 13:40
[2022-05-12 19:59] VITALS: BP 138/76
[2022-05-12 23:53] VITALS: BP 158/73
[2022-05-13 03:57] VITALS: BP 114/70
[2022-05-13 06:56] LABS: BASOPHILS % (AUTO) 1 % (0-10); EOSINOPHILS # (AUTO) 0.2 10^3/uL (0.0-0.3); EOSINOPHILS % (AUTO) 3 % (0-10); HEMATOCRIT 38 % (40-54); HEMOGLOBIN 12.4 g/dL (13.3-17.7); LYMPHOCYTES # (AUTO) 1.3 10^3/uL (1.0-4.0); LYMPHOCYTES % (AUTO) 20 % (12-44); MEAN CORPUSCULAR HEMOGLOBIN 29 pg (25-34); MEAN CORPUSCULAR HGB CONC 33 g/dL (32-36); MEAN CORPUSCULAR VOLUME 87 fL (80-99); MONOCYTES # (AUTO) 0.6 10^3/uL (0.0-1.0); MONOCYTES % (AUTO) 9 % (0-12); NEUTROPHILS # (AUTO) 4.2 10^3/uL (1.8-7.8); NEUTROPHILS % (AUTO) 66 % (42-75); PLATELET COUNT 238 10^3/uL (130-400); WHITE BLOOD COUNT 6.3 10^3/uL (4.3-11.0)
[2022-05-13 07:20] LABS: ALBUMIN 3.3 GM/DL (3.2-4.5); BILIRUBIN,TOTAL 0.7 MG/DL (0.1-1.0); CALCIUM 8.8 MG/DL (8.5-10.1); CREATININE SERUM 0.85 MG/DL (0.60-1.30)
[2022-05-13 07:49] VITALS: BP 130/90
--- NOTE | 2022-05-13 08:30 | Cardiology Progress Note ---
Subjective Date Seen by Provider: May 13, 2022 Time Seen by Provider: 08:28 Subjective/Events-last exam Patient is sitting up in bed, continues to be confused. Objective-Cardiology Exam Last Set of Vital Signs Vital Signs 05/09/22 05/13/22 20:07 07:49 Temp 36.5 Pulse 74 Resp 18 B/P (MAP) 130/90 (103) Pulse Ox 95 O2 Delivery Room Air O2 Flow Rate 2.00 2.00 I&O Intake and Output 05/13/22 00:00 Intake Total 1310 ml Output Total 1600 ml Balance -290 ml Intake Oral 1310 ml Output Urine Total 1600 ml General: Alert, Cooperative, Mild Distress, Other (Alerted to place after redirection) HEENT: Atraumatic, PERRLA Neck: Supple, No JVD, No Thyromegaly Lungs: Clear to Auscultation, Normal Air Movement Heart: Regular Rate, Normal S1, Normal S2 Abdomen: Normal Bowel Sounds, Soft Extremities: No Edema Skin: No Rashes Neuro: Normal Speech Psych/Mental Status: Other (Despondent) Results Lab Laboratory Tests 05/13/22 06:27 A/P-Cardiology Admission Diagnosis Paroxysmal atrial fibrillation Sinus node dysfunction Hypertension Hyperlipidemia. Assessment/Plan Paroxysmal atrial fibrillation alternating with sinus node dysfunction Tacky bradycardia episode Had multiple pauses up to 3.5 seconds pause and 4 seconds pause, had few episodes of bradycardia with a heart rate in the 20s Currently back in sinus rhythm. Tolerating current medications well. I will discuss with Dr. Jimenez regarding his management. He would benefit from pacemaker placement, might be good candidate for leadless pacemaker. Currently in sinus rhythm, he was switched to amiodarone and tolerating it well. [id number] score 4. Patient is unable to tolerate oral anticoagulation due to GI bleed. Started on Eliquis and tolerating it, continue to monitor. Acute change in mental status, agitation, confusion, was on Precedex drip Currently still having mild agitation and confusion Status post knee replacement. Done at [facility]. Recovering Starting physical therapy 2D echo from [facility] reported to have left atrial enlargement, mild LVH with ejection fraction 60%, grade 3 diastolic dysfunction, pulmonary hypertension with PA pressure 50 to 55 mmHg Hypertension, continue to monitor blood pressure Hyperlipidemia, monitor lipids. Essential tremor, starting low-dose beta-blockers and evaluate tolerance and response Diabetes mellitus, followed and managed by primary care physician Status post recent GI bleed secondary to the use of aspirin and NSAID. Requiring blood transfusion. Continue to monitor Supervisory-Addendum Brief Supervisory Addendum Participated in pt care: history, MDM, physical Personally performed: exam, history, MDM Care discussed with: GEMMA Results interpretation: Verified all documentation Notes: Patient was seen and evaluated with Martina, examination performed, management plan was discussed, agree with the current scribed note, I made few changes to the note using Italic font Patient was seen at bedside, confused, agitated No new complaint. Denied any chest pain. No syncope. Continue to monitor telemetry MARTINA ANDERS May 13, 2022 08:30 LORRIE FULTON MD May 13, 2022 08:49
[2022-05-13] MEDS: meTOprolol TARTRATE 50 MG (LOPRESSOR) TAB PO SCH ×2 (08:59→20:26)
[2022-05-13] MEDS: APIXABAN 5 MG (ELIQUIS) TABLET PO SCH ×2 (08:59→20:27)
[2022-05-13] MEDS: FERROUS SULF 325 MG (IRON) TAB PO SCH (08:59)
[2022-05-13] MEDS: AMIODARONE 200 MG (CORDARONE) TAB PO SCH ×2 (08:59→20:27)
[2022-05-13] MEDS: DOCUSATE SODIUM 100 MG (COLACE) CAP PO SCH ×2 (08:59→20:26)
[2022-05-13] MEDS: PANTOPRAZOLE 40 MG (PROTONIX) TAB PO SCH ×2 (08:59→20:27)
[2022-05-13] MEDS: SENNOSIDES 8.6 MG (SENOKOT) TAB PO SCH ×2 (08:59→20:26)
[2022-05-13] MEDS ORDERED: meTOprolol 5 MG/5 ML (LOPRESSOR) VIAL ONE (09:50)
[2022-05-13] MEDS ORDERED: AMIODARONE FOR BOLUS 150 MG in NS (IVPB) 100 ML IV NR (10:00)
[2022-05-13] MEDS ORDERED: meTOprolol 5 MG/5 ML (LOPRESSOR) VIAL IV NR (10:00)
--- NOTE | 2022-05-13 11:26 | Progress Note ---
SUNIL PARTIDA I 05/13/22 1126: Subjective Date Seen by a Provider: May 13, 2022 Time Seen by a Provider: 08:30 Subjective/Events-last exam Mr. Luis is a 76 year old male with a PMH of arthritis, GI Bleed, and Afib admitted to ICU for SVT L TKA at [facility]. Overnight he reports not sleeping well and being quite anxious. He is eating well, but reports having paranoid delusions. He had another episode of SVT and was transferred back to ICU. Objective Exam Last Set of Vital Signs Vital Signs Date Time Temp Pulse Resp B/P (MAP) Pulse Ox O2 Delivery O2 Flow Rate FiO2 05/13/22 10:45 72 05/13/22 10:30 24 144/89 (107) 95 Room Air 05/13/22 07:49 36.5 05/09/22 20:07 2.00 2.00 Capillary Refill : Less Than 3 Seconds I&O Intake and Output 05/13/22 00:00 Intake Total 1310 ml Output Total 1600 ml Balance -290 ml Intake Oral 1310 ml Output Urine Total 1600 ml General: Alert (Alert to person, not date or place), Mild Distress HEENT: Atraumatic, PERRLA Neck: Supple, No JVD, No Thyromegaly Lungs: Clear to Auscultation, Normal Air Movement Heart: Regular Rate, Normal S1, Normal S2 Abdomen: Normal Bowel Sounds Extremities: No Clubbing, No Cyanosis, No Edema, Normal Pulses, No Tenderness/Swelling Skin: No Rashes, No Breakdown, No Significant Lesion Neuro: Normal Speech, Other (Limits standing due to pain on right knee) Psych/Mental Status: Other (Anxious and paranoid) Results Lab Laboratory Tests 05/13/22 06:27: White Blood Count 6.3, Red Blood Count 4.33, Hemoglobin 12.4L, Hematocrit 38L, Mean Corpuscular Volume 87, Mean Corpuscular Hemoglobin 29, Mean Corpuscular Hemoglobin Concent 33, Red Cell Distribution Width 13.2, Platelet Count 238, Mean Platelet Volume 10.0, Immature Granulocyte % (Auto) 1, Neutrophils (%) (Auto) 66, Lymphocytes (%) (Auto) 20, Monocytes (%) (Auto) 9, Eosinophils (%) (Auto) 3, Basophils (%) (Auto) 1, Neutrophils # (Auto) 4.2, Lymphocytes # (Auto) 1.3, Monocytes # (Auto) 0.6, Eosinophils # (Auto) 0.2, Basophils # (Auto) 0.0, Immature Granulocyte # (Auto) 0.1, Sodium Level 136, Potassium Level 4.0, Chloride Level 105, Carbon Dioxide Level 23, Anion Gap 8, Blood Urea Nitrogen 16, Creatinine 0.85, Estimat Glomerular Filtration Rate 90, BUN/Creatinine Ratio 19, Glucose Level 90, Calcium Level 8.8, Corrected Calcium 9.4, Magnesium Level 2.0, Total Bilirubin 0.7, Aspartate Amino Transf (AST/SGOT) 23, Alanine Aminotransferase (ALT/SGPT) 27, Alkaline Phosphatase 50, Total Protein 6.0L, Albumin 3.3 Microbiology 05/06/22 Blood Culture - Final, Complete No growth 05/06/22 MRSA Screen - Final, Complete MRSA not isolated Assessment/Plan Assessment/Plan Assess & Plan/Chief Complaint Jesse Luis is a 76 YoM PMH of Arthritis, Hx of GIB, and A fib admitted for SVT following uncomplicated L TKA. He returned to the ICU following SVT on 05/13. And was given Metoprolol and Amiodarone. Paroxysmal A fib with RVR - SVT 180s (05/13) moved back to ICU - given IV beta rigo, amiodarone. 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 - Previous discussion with family about pacemaker, may consider discussing again for quality of life. - Will continue to monitor and treat medically SVT - Per cardiology, adjusting metoprolol and diltiazem Sick sinus syndrome - per cardiology, adjusting metoprolol and diltiazem - Consider revisiting pacemaker placement for quality of life. L TKA - Resume PT/OT d/t improvement in clinical condition - WBC monitored - off abx R knee pain - osteoarthritis - RTKA is set to be done 3 months following LTKA - Resume PT/OT when stable Tremor and agitation - possible ICU delirium as he denies alcohol use in previous two years, - UE tremor L>R - beta rigo for A Fib, Urinary Retention - Overflow incontinence secondary to BPH - Continue baumann. - consider tamsulosin 0.4 for alleviating BPH symptoms 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 (improving) - Required 4 units in 09/22 - HGB improving - on PPI, apixaban, continue to monitor HTN - borderline hypotensive - monitor BP and EKG - hold meds as necessary HLD - monitor - continue home statin presumed pneumonia (improved) - CXR showing atalectasis, resolved 05/11 - WBC wnl - off abx Diabetes mellitus - monitoring glucose levels Deposition: Continue ICU cares Clinical Quality Measures DVT/VTE Risk/Contraindication: Contraindications-Mechi: Other *list below* Other: OR BRIDGETT OLEARY DO 05/14/22 0519: Subjective Subjective/Events-last exam Pt had another episode of SVT afib End up discussion with [id number] Janice, they have decided to turn over to hospice back to the detention since the arrhythmias are asymptomatic. He will be discharged tomorrow with social work help Assessment/Plan Assessment/Plan Assess & Plan/Chief Complaint Hospice tomorrow Supervisory-Addendum Brief Verification & Attestation Participated in pt care: history, MDM, physical Personally performed: exam, history, MDM, supervision of care Care discussed with: Medical Student Procedures: n/a Results interpretation: Verified all documentation Verification and Attestation of Medical Student E/M Service A medical student performed and documented this service in my presence. I reviewed and verified all information documented by the medical student and made modifications to such information, when appropriate. I personally performed the physical exam and medical decision making. Bridgett Oleary, May 14, 2022,05:18 SUNIL PARTIDA I May 13, 2022 11:26 BRIDGETT OLEARY DO May 14, 2022 05:19
--- NOTE | 2022-05-13 12:40 | Occ Therapy Progress Note ---
Therapy Progress Note Due to decline in medical status, pt dismissed from OT services. Pt will need new orders when medically stable and able to actively participate in skilled therapy. TANIYA VARGHESE May 13, 2022 12:40
--- NOTE | 2022-05-13 14:44 | Physical Therapy Progress Note ---
Therapy Progress Note Attempted to see patient for am PT treatment. Patient being transferred to ICU as this PT arrived to the floor. Will need new orders due to transfer to the ICU NORBERTO CALVO PT May 13, 2022 14:44
[2022-05-13] MEDS ORDERED: morphine (ROXINOL) 10 MG/0.5 ML oral conc 0.5 ML PO PRN (19:00)
[2022-05-13 20:05] VITALS: BP 158/75
[2022-05-13] MEDS: LORazepam INJ 2 MG/ML (ATIVAN) VIAL IVP PRN (23:07)
[2022-05-14] MEDS: HYDROmorphone 2 MG/ML VIAL (DILAUDID) IV PRN ×2 (04:55→10:35)
[2022-05-14] MEDS: LORazepam INJ 2 MG/ML (ATIVAN) VIAL IVP PRN ×2 (05:20→10:35)
[2022-05-14] MEDS: FERROUS SULF 325 MG (IRON) TAB PO SCH (08:38)
[2022-05-14] MEDS: meTOprolol TARTRATE 50 MG (LOPRESSOR) TAB PO SCH (08:38)
[2022-05-14] MEDS: DOCUSATE SODIUM 100 MG (COLACE) CAP PO SCH (08:38)
[2022-05-14] MEDS: AMIODARONE 200 MG (CORDARONE) TAB PO SCH (08:38)
[2022-05-14] MEDS: PANTOPRAZOLE 40 MG (PROTONIX) TAB PO SCH (08:39)
[2022-05-14] MEDS: APIXABAN 5 MG (ELIQUIS) TABLET PO SCH (08:39)
[2022-05-14] MEDS: SENNOSIDES 8.6 MG (SENOKOT) TAB PO SCH (08:39)
[2022-05-14] MEDS ORDERED: LORA2ORA PO (11:52)
[2022-05-14] MEDS ORDERED: MORP100S7 PO (11:52)
--- NOTE | 2022-05-14 11:53 | Discharge Summary ---
Diagnosis/Chief Complaint Date of Admission May 06, 2022 at 18:35 Date of Discharge Discharge Date: May 14, 2022 Discharge Diagnosis Jesse Luis is a 76 YoM PMH of Arthritis, Hx of GIB, and A fib admitted for SVT following uncomplicated L TKA. He returned to the ICU following SVT on 05/13. And was given Metoprolol and Amiodarone. Paroxysmal A fib with RVR - SVT 180s (05/13) moved back to ICU - given IV beta rigo, amiodarone. 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 - Previous discussion with family about pacemaker, may consider discussing again for quality of life. - Will continue to monitor and treat medically SVT - Per cardiology, adjusting metoprolol and diltiazem Sick sinus syndrome - per cardiology, adjusting metoprolol and diltiazem - Consider revisiting pacemaker placement for quality of life. L TKA - Resume PT/OT d/t improvement in clinical condition - WBC monitored - off abx R knee pain - osteoarthritis - RTKA is set to be done 3 months following LTKA - Resume PT/OT when stable Tremor and agitation - possible ICU delirium as he denies alcohol use in previous two years, - UE tremor L>R - beta rigo for A Fib, Urinary Retention - Overflow incontinence secondary to BPH - Continue baumann. - consider tamsulosin 0.4 for alleviating BPH symptoms 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 (improving) - Required 4 units in 09/22 - HGB improving - on PPI, apixaban, continue to monitor HTN - borderline hypotensive - monitor BP and EKG - hold meds as necessary HLD - monitor - continue home statin presumed pneumonia (improved) - CXR showing atalectasis, resolved 05/11 - WBC wnl - off abx Diabetes mellitus - monitoring glucose levels Discharge Summary Discharge Physical Examination Allergies: Coded Allergies: No Known Drug Allergies (Unverified , 05/06/22) Vitals & I&Os Vital Signs Date Time Temp Pulse Resp B/P (MAP) Pulse Ox O2 Delivery O2 Flow Rate FiO2 05/14/22 15:00 05/14/22 09:00 Room Air 05/13/22 20:05 80 34 88 05/13/22 20:00 36.3 05/09/22 20:07 2.00 2.00 General Appearance: Other (comatose) Hospital Course Was the Problem List Reviewed?: Yes Jesse Luis is a 76 year old male with a past medical history of arthritis, gastrointestinal bleed, atrial fibrillation who recently underwent surgery for left total knee arthroplasty at [facility] which was complicated post operatively by superventricular tachycardia and was transferred to [facility] ICU on 05/06/22. Throughout his hospital course, he experienced paroxysmal atrial fibrillation alternating with sinus node dysfunction which was treated with metoprolol and amiodarone. Cardiology was consulted and recommended pacemaker placement due to sick sinus syndrome, however this was declined after extensive discussion due to his DNR status and family wishes. He also experienced several bouts of delirium which included some combative episodes necessitating mild sedation. On 05/13, DPOA decided to transition to comfort care and he has remained comfortable since that time. Labs (last 24 hrs) Laboratory Tests 05/06/22 18:58: White Blood Count 13.7H, Red Blood Count 5.06, Hemoglobin 14.4, Hematocrit 44, Mean Corpuscular Volume 87, Mean Corpuscular Hemoglobin 29, Mean Corpuscular Hemoglobin Concent 33, Red Cell Distribution Width 13.4, Platelet Count 219, Mean Platelet Volume 10.5, Immature Granulocyte % (Auto) 0, Neutrophils (%) (Auto) 93H, Lymphocytes (%) (Auto) 5L, Monocytes (%) (Auto) 2, Eosinophils (%) (Auto) 0, Basophils (%) (Auto) 0, Neutrophils # (Auto) 12.7H, Lymphocytes # (Auto) 0.7L, Monocytes # (Auto) 0.2, Eosinophils # (Auto) 0.0, Basophils # (Auto) 0.0, Immature Granulocyte # (Auto) 0.1, Neutrophils % (Manual) 92, Lymphocytes % (Manual) 5, Monocytes % (Manual) 3, Blood Morphology Comment NORMAL, Sodium Level 138, Potassium Level 4.8, Chloride Level 108H, Carbon Dioxide Level 18L, Anion Gap 12, Blood Urea Nitrogen 15, Creatinine 1.05, Estimat Glomerular Filtration Rate 74, BUN/Creatinine Ratio 14, Glucose Level 165H, Calcium Level 9.0, Corrected Calcium 9.4, Total Bilirubin 0.3, Aspartate Amino Transf (AST/SGOT) 16, Alanine Aminotransferase (ALT/SGPT) 19, Alkaline Phosphatase 62, Troponin I < 0.028, Total Protein 6.1L, Albumin 3.5 05/06/22 21:00: Lactic Acid Level 2.04*H 05/06/22 23:15: Lactic Acid Level 1.24 05/07/22 04:31: Blood Gas Puncture Site RIGHT RADIAL, Blood Gas Patient Temperature 36.9, Arterial Blood pH 7.40, Arterial Blood Partial Pressure CO2 35, Arterial Blood Partial Pressure O2 81, Arterial Blood HCO3 22L, Arterial Blood Total CO2 22.6, Arterial Blood Oxygen Saturation 95, Arterial Blood Base Excess -2.6L, Otoniel Test YES-POS, Blood Gas Ventilator Setting NA, Blood Gas Inspired Oxygen NA 05/07/22 04:45: White Blood Count 14.1H, Red Blood Count 4.49, Hemoglobin 12.8L, Hematocrit 39L, Mean Corpuscular Volume 88, Mean Corpuscular Hemoglobin 29, Mean Corpuscular Hemoglobin Concent 33, Red Cell Distribution Width 13.4, Platelet Count 183, Mean Platelet Volume 10.9, Immature Granulocyte % (Auto) 0, Neutrophils (%) (Auto) 84H, Lymphocytes (%) (Auto) 9L, Monocytes (%) (Auto) 7, Eosinophils (%) (Auto) 0, Basophils (%) (Auto) 0, Neutrophils # (Auto) 11.9H, Lymphocytes # (Auto) 1.2, Monocytes # (Auto) 1.0, Eosinophils # (Auto) 0.0, Basophils # (Auto) 0.0, Immature Granulocyte # (Auto) 0.1, Prothrombin Time 14.3, INR Comment 1.1, Activated Partial Thromboplast Time 29, Sodium Level 141, Potassium Level 4.4, Chloride Level 111H, Carbon Dioxide Level 20L, Anion Gap 10, Blood Urea Nitrogen 16, Creatinine 0.91, Estimat Glomerular Filtration Rate 87, BUN/Creatinine Ratio 18, Glucose Level 139H, Calcium Level 9.0, Corrected Calcium 9.6, Phosphorus Level 2.8, Magnesium Level 2.0, Total Bilirubin 0.3, Aspartate Amino Transf (AST/SGOT) 13, Alanine Aminotransferase (ALT/SGPT) 16, Alkaline Phosphatase 57, Troponin I 0.059H, Total Protein 5.4L, Albumin 3.2 05/08/22 04:26: White Blood Count 13.1H, Red Blood Count 4.87, Hemoglobin 13.8, Hematocrit 42, Mean Corpuscular Volume 87, Mean Corpuscular Hemoglobin 28, Mean Corpuscular Hemoglobin Concent 33, Red Cell Distribution Width 13.6, Platelet Count 224, Mean Platelet Volume 10.7, Immature Granulocyte % (Auto) 1, Neutrophils (%) (Auto) 74, Lymphocytes (%) (Auto) 15, Monocytes (%) (Auto) 9, Eosinophils (%) (Auto) 1, Basophils (%) (Auto) 1, Neutrophils # (Auto) 9.7H, Lymphocytes # (Auto) 2.0, Monocytes # (Auto) 1.2H, Eosinophils # (Auto) 0.1, Basophils # (Auto) 0.1, Immature Granulocyte # (Auto) 0.1, Sodium Level 137, Potassium Level 4.2, Chloride Level 107, Carbon Dioxide Level 21, Anion Gap 9, Blood Urea Nitrogen 12, Creatinine 0.87, Estimat Glomerular Filtration Rate 89, BUN/Creatinine Ratio 14, Glucose Level 99, Calcium Level 8.9, Corrected Calcium 9.1, Magnesium Level 1.7, Total Bilirubin 0.6, Aspartate Amino Transf (AST/SGOT) 22, Alanine Aminotransferase (ALT/SGPT) 14, Alkaline Phosphatase 70, Total Protein 6.2L, Albumin 3.7 05/08/22 12:16: Glucometer 83 05/08/22 16:40: Glucometer 89 05/09/22 00:47: Glucometer 135H 05/09/22 04:05: B-Type Natriuretic Peptide 372.6H, Triglycerides Level 135, Cholesterol Level 113, LDL Cholesterol Direct 61, VLDL Cholesterol 27, HDL Cholesterol 31L, Thyroid Stimulating Hormone (TSH) 0.99 05/09/22 04:13: White Blood Count 8.4, Red Blood Count 4.03L, Hemoglobin 11.4L, Hematocrit 35L, Mean Corpuscular Volume 88, Mean Corpuscular Hemoglobin 28, Mean Corpuscular Hemoglobin Concent 32, Red Cell Distribution Width 13.2, Platelet Count 144, Mean Platelet Volume 10.3, Immature Granulocyte % (Auto) 0, Neutrophils (%) (Auto) 77H, Lymphocytes (%) (Auto) 14, Monocytes (%) (Auto) 7, Eosinophils (%) (Auto) 2, Basophils (%) (Auto) 1, Neutrophils # (Auto) 6.5, Lymphocytes # (Auto) 1.1, Monocytes # (Auto) 0.6, Eosinophils # (Auto) 0.1, Basophils # (Auto) 0.0, Immature Granulocyte # (Auto) 0.0, Sodium Level 134L, Potassium Level 4.3, Chloride Level 107, Carbon Dioxide Level 21, Anion Gap 6, Blood Urea Nitrogen 21H, Creatinine 0.76, Estimat Glomerular Filtration Rate 93, BUN/Creatinine Ratio 28, Glucose Level 130H, Calcium Level 8.3L, Corrected Calcium 9.2, Magnesium Level 4.2H, Total Bilirubin 0.5, Aspartate Amino Transf (AST/SGOT) 21, Alanine Aminotransferase (ALT/SGPT) 13, Alkaline Phosphatase 46, Total Protein 5.4L, Albumin 2.9L 05/09/22 11:22: Glucometer 167H 05/10/22 05:00: White Blood Count 9.7, Red Blood Count 4.42, Hemoglobin 12.6L, Hematocrit 38L, Mean Corpuscular Volume 86, Mean Corpuscular Hemoglobin 29, Mean Corpuscular Hemoglobin Concent 33, Red Cell Distribution Width 13.4, Platelet Count 223, Mean Platelet Volume 10.7, Immature Granulocyte % (Auto) 0, Neutrophils (%) (Auto) 69, Lymphocytes (%) (Auto) 19, Monocytes (%) (Auto) 9, Eosinophils (%) (Auto) 2, Basophils (%) (Auto) 1, Neutrophils # (Auto) 6.7, Lymphocytes # (Auto) 1.9, Monocytes # (Auto) 0.8, Eosinophils # (Auto) 0.2, Basophils # (Auto) 0.1, Immature Granulocyte # (Auto) 0.0, Sodium Level 136, Potassium Level 4.1, Chloride Level 109H, Carbon Dioxide Level 17L, Anion Gap 10, Blood Urea Nitrogen 20H, Creatinine 0.83, Estimat Glomerular Filtration Rate 91, BUN/Creatinine Ratio 24, Glucose Level 93, Calcium Level 8.5, Corrected Calcium 9.2, Magnesium Level 2.2, Total Bilirubin 0.7, Aspartate Amino Transf (AST/SGOT) 21, Alanine Aminotransferase (ALT/SGPT) 19, Alkaline Phosphatase 47, Total Protein 5.7L, Albumin 3.1L 05/11/22 05:42: White Blood Count 8.1, Red Blood Count 4.19L, Hemoglobin 12.0L, Hematocrit 36L, Mean Corpuscular Volume 86, Mean Corpuscular Hemoglobin 29, Mean Corpuscular Hemoglobin Concent 33, Red Cell Distribution Width 13.2, Platelet Count 200, Mean Platelet Volume 10.1, Immature Granulocyte % (Auto) 1, Neutrophils (%) (Auto) 78H, Lymphocytes (%) (Auto) 12, Monocytes (%) (Auto) 8, Eosinophils (%) (Auto) 1, Basophils (%) (Auto) 1, Neutrophils # (Auto) 6.3, Lymphocytes # (Auto) 1.0, Monocytes # (Auto) 0.6, Eosinophils # (Auto) 0.1, Basophils # (Auto) 0.0, Immature Granulocyte # (Auto) 0.1, Sodium Level 137, Potassium Level 3.8, Chloride Level 109H, Carbon Dioxide Level 20L, Anion Gap 8, Blood Urea Nitrogen 21H, Creatinine 0.84, Estimat Glomerular Filtration Rate 90, BUN/Creatinine Ratio 25, Glucose Level 94, Calcium Level 8.6, Corrected Calcium 9.2, Magnesium Level 2.0, Total Bilirubin 0.7, Aspartate Amino Transf (AST/SGOT) 19, Alanine Aminotransferase (ALT/SGPT) 18, Alkaline Phosphatase 50, Total Protein 5.9L, Albumin 3.2 05/12/22 05:02: White Blood Count 5.5, Red Blood Count 4.06L, Hemoglobin 11.4L, Hematocrit 35L, Mean Corpuscular Volume 87, Mean Corpuscular Hemoglobin 28, Mean Corpuscular Hemoglobin Concent 32, Red Cell Distribution Width 13.2, Platelet Count 186, Mean Platelet Volume 9.8, Immature Granulocyte % (Auto) 1, Neutrophils (%) (Auto) 62, Lymphocytes (%) (Auto) 21, Monocytes (%) (Auto) 10, Eosinophils (%) (Auto) 5, Basophils (%) (Auto) 1, Neutrophils # (Auto) 3.4, Lymphocytes # (Auto) 1.2, Monocytes # (Auto) 0.5, Eosinophils # (Auto) 0.3, Basophils # (Auto) 0.1, Immature Granulocyte # (Auto) 0.0, Sodium Level 139, Potassium Level 4.1, Chloride Level 109H, Carbon Dioxide Level 18L, Anion Gap 12, Blood Urea Nitrogen 17, Creatinine 0.75, Estimat Glomerular Filtration Rate 94, BUN/Creatinine Ratio 23, Glucose Level 89, Calcium Level 8.6, Corrected Calcium 9.4, Magnesium Level 2.0, Total Bilirubin 0.7, Aspartate Amino Transf (AST/SGOT) 16, Alanine Aminotransferase (ALT/SGPT) 19, Alkaline Phosphatase 47, Total Protein 5.6L, Albumin 3.0L 05/13/22 06:27: White Blood Count 6.3, Red Blood Count 4.33, Hemoglobin 12.4L, Hematocrit 38L, Mean Corpuscular Volume 87, Mean Corpuscular Hemoglobin 29, Mean Corpuscular Hemoglobin Concent 33, Red Cell Distribution Width 13.2, Platelet Count 238, Mean Platelet Volume 10.0, Immature Granulocyte % (Auto) 1, Neutrophils (%) (Auto) 66, Lymphocytes (%) (Auto) 20, Monocytes (%) (Auto) 9, Eosinophils (%) (Auto) 3, Basophils (%) (Auto) 1, Neutrophils # (Auto) 4.2, Lymphocytes # (Auto) 1.3, Monocytes # (Auto) 0.6, Eosinophils # (Auto) 0.2, Basophils # (Auto) 0.0, Immature Granulocyte # (Auto) 0.1, Sodium Level 136, Potassium Level 4.0, Chloride Level 105, Carbon Dioxide Level 23, Anion Gap 8, Blood Urea Nitrogen 16, Creatinine 0.85, Estimat Glomerular Filtration Rate 90, BUN/Creatinine Ratio 19, Glucose Level 90, Calcium Level 8.8, Corrected Calcium 9.4, Magnesium Level 2.0, Total Bilirubin 0.7, Aspartate Amino Transf (AST/SGOT) 23, Alanine Aminotransferase (ALT/SGPT) 27, Alkaline Phosphatase 50, Total Protein 6.0L, Albumin 3.3 Microbiology 05/06/22 Blood Culture - Final, Complete No growth 05/06/22 MRSA Screen - Final, Complete MRSA not isolated Pending Labs Microbiology Date/Time Source Procedure Growth Status 05/06/22 21:10 Peripheral Lt Hand Blood Culture - Final No growth Complete 05/06/22 21:00 Peripheral Lt Ac Blood Culture - Final No growth Complete 05/06/22 19:00 Nasal MRSA Screen - Final MRSA not isolated Complete Laboratory Tests 05/06/22 18:58: White Blood Count 13.7, Red Blood Count 5.06, Hemoglobin 14.4, Hematocrit 44, Mean Corpuscular Volume 87, Mean Corpuscular Hemoglobin 29, Mean Corpuscular Hemoglobin Concent 33, Red Cell Distribution Width 13.4, Platelet Count 219, Mean Platelet Volume 10.5, Immature Granulocyte % (Auto) 0, Neutrophils (%) (Auto) 93, Lymphocytes (%) (Auto) 5, Monocytes (%) (Auto) 2, Eosinophils (%) (Auto) 0, Basophils (%) (Auto) 0, Neutrophils # (Auto) 12.7, Lymphocytes # (Auto) 0.7, Monocytes # (Auto) 0.2, Eosinophils # (Auto) 0.0, Basophils # (Auto) 0.0, Immature Granulocyte # (Auto) 0.1, Neutrophils % (Manual) 92, Lymphocytes % (Manual) 5, Monocytes % (Manual) 3, Blood Morphology Comment NORMAL, Sodium Level 138, Potassium Level 4.8, Chloride Level 108, Carbon Dioxide Level 18, Anion Gap 12, Blood Urea Nitrogen 15, Creatinine 1.05, Estimat Glomerular Filtration Rate 74, BUN/Creatinine Ratio 14, Glucose Level 165, Calcium Level 9.0, Corrected Calcium 9.4, Total Bilirubin 0.3, Aspartate Amino Transf (AST/SGOT) 16, Alanine Aminotransferase (ALT/SGPT) 19, Alkaline Phosphatase 62, Troponin I < 0.028, Total Protein 6.1, Albumin 3.5 05/06/22 21:00: Lactic Acid Level 2.04 05/06/22 23:15: Lactic Acid Level 1.24 05/07/22 04:31: Blood Gas Puncture Site RIGHT RADIAL, Blood Gas Patient Temperature 36.9, Arterial Blood pH 7.40, Arterial Blood Partial Pressure CO2 35, Arterial Blood Partial Pressure O2 81, Arterial Blood HCO3 22, Arterial Blood Total CO2 22.6, Arterial Blood Oxygen Saturation 95, Arterial Blood Base Excess -2.6, Otoniel Test YES-POS, Blood Gas Ventilator Setting NA, Blood Gas Inspired Oxygen NA 05/07/22 04:45: White Blood Count 14.1, Red Blood Count 4.49, Hemoglobin 12.8, Hematocrit 39, Mean Corpuscular Volume 88, Mean Corpuscular Hemoglobin 29, Mean Corpuscular Hemoglobin Concent 33, Red Cell Distribution Width 13.4, Platelet Count 183, Mean Platelet Volume 10.9, Immature Granulocyte % (Auto) 0, Neutrophils (%) (Auto) 84, Lymphocytes (%) (Auto) 9, Monocytes (%) (Auto) 7, Eosinophils (%) (Auto) 0, Basophils (%) (Auto) 0, Neutrophils # (Auto) 11.9, Lymphocytes # (Auto) 1.2, Monocytes # (Auto) 1.0, Eosinophils # (Auto) 0.0, Basophils # (Auto) 0.0, Immature Granulocyte # (Auto) 0.1, Prothrombin Time 14.3, INR Comment 1.1, Activated Partial Thromboplast Time 29, Sodium Level 141, Potassium Level 4.4, Chloride Level 111, Carbon Dioxide Level 20, Anion Gap 10, Blood Urea Nitrogen 16, Creatinine 0.91, Estimat Glomerular Filtration Rate 87, BUN/Creatinine Ratio 18, Glucose Level 139, Calcium Level 9.0, Corrected Calcium 9.6, Phosphorus Level 2.8, Magnesium Level 2.0, Total Bilirubin 0.3, Aspartate Amino Transf (AST/SGOT) 13, Alanine Aminotransferase (ALT/SGPT) 16, Alkaline Phosphatase 57, Troponin I 0.059, Total Protein 5.4, Albumin 3.2 05/08/22 04:26: White Blood Count 13.1, Red Blood Count 4.87, Hemoglobin 13.8, Hematocrit 42, Mean Corpuscular Volume 87, Mean Corpuscular Hemoglobin 28, Mean Corpuscular Hemoglobin Concent 33, Red Cell Distribution Width 13.6, Platelet Count 224, Mean Platelet Volume 10.7, Immature Granulocyte % (Auto) 1, Neutrophils (%) (Auto) 74, Lymphocytes (%) (Auto) 15, Monocytes (%) (Auto) 9, Eosinophils (%) (Auto) 1, Basophils (%) (Auto) 1, Neutrophils # (Auto) 9.7, Lymphocytes # (Auto) 2.0, Monocytes # (Auto) 1.2, Eosinophils # (Auto) 0.1, Basophils # (Auto) 0.1, Immature Granulocyte # (Auto) 0.1, Sodium Level 137, Potassium Level 4.2, Chloride Level 107, Carbon Dioxide Level 21, Anion Gap 9, Blood Urea Nitrogen 12, Creatinine 0.87, Estimat Glomerular Filtration Rate 89, BUN/Creatinine Ratio 14, Glucose Level 99, Calcium Level 8.9, Corrected Calcium 9.1, Magnesium Level 1.7, Total Bilirubin 0.6, Aspartate Amino Transf (AST/SGOT) 22, Alanine Aminotransferase (ALT/SGPT) 14, Alkaline Phosphatase 70, Total Protein 6.2, Albumin 3.7 05/08/22 12:16: Glucometer 83 05/08/22 16:40: Glucometer 89 05/09/22 00:47: Glucometer 135 05/09/22 04:05: B-Type Natriuretic Peptide 372.6, Triglycerides Level 135, Cholesterol Level 113, LDL Cholesterol Direct 61, VLDL Cholesterol 27, HDL Cholesterol 31, Thyroid Stimulating Hormone (TSH) 0.99 05/09/22 04:13: White Blood Count 8.4, Red Blood Count 4.03, Hemoglobin 11.4, Hematocrit 35, Mean Corpuscular Volume 88, Mean Corpuscular Hemoglobin 28, Mean Corpuscular Hemoglobin Concent 32, Red Cell Distribution Width 13.2, Platelet Count 144, Mean Platelet Volume 10.3, Immature Granulocyte % (Auto) 0, Neutrophils (%) ( Auto) 77, Lymphocytes (%) (Auto) 14, Monocytes (%) (Auto) 7, Eosinophils (%) (Auto) 2, Basophils (%) (Auto) 1, Neutrophils # (Auto) 6.5, Lymphocytes # (Auto) 1.1, Monocytes # (Auto) 0.6, Eosinophils # (Auto) 0.1, Basophils # (Auto) 0.0, Immature Granulocyte # (Auto) 0.0, Sodium Level 134, Potassium Level 4.3, Chloride Level 107, Carbon Dioxide Level 21, Anion Gap 6, Blood Urea Nitrogen 21, Creatinine 0.76, Estimat Glomerular Filtration Rate 93, BUN/Creatinine Ratio 28, Glucose Level 130, Calcium Level 8.3, Corrected Calcium 9.2, Magnesium Level 4.2, Total Bilirubin 0.5, Aspartate Amino Transf (AST/SGOT) 21, Alanine Aminotransferase (ALT/SGPT) 13, Alkaline Phosphatase 46, Total Protein 5.4, Albumin 2.9 05/09/22 11:22: Glucometer 167 05/10/22 05:00: White Blood Count 9.7, Red Blood Count 4.42, Hemoglobin 12.6, Hematocrit 38, Mean Corpuscular Volume 86, Mean Corpuscular Hemoglobin 29, Mean Corpuscular Hemoglobin Concent 33, Red Cell Distribution Width 13.4, Platelet Count 223, Mean Platelet Volume 10.7, Immature Granulocyte % (Auto) 0, Neutrophils (%) (Auto) 69, Lymphocytes (%) (Auto) 19, Monocytes (%) (Auto) 9, Eosinophils (%) (Auto) 2, Basophils (%) (Auto) 1, Neutrophils # (Auto) 6.7, Lymphocytes # (Auto) 1.9, Monocytes # (Auto) 0.8, Eosinophils # (Auto) 0.2, Basophils # (Auto) 0.1, Immature Granulocyte # (Auto) 0.0, Sodium Level 136, Potassium Level 4.1, Chloride Level 109, Carbon Dioxide Level 17, Anion Gap 10, Blood Urea Nitrogen 20, Creatinine 0.83, Estimat Glomerular Filtration Rate 91, BUN/Creatinine Ratio 24, Glucose Level 93, Calcium Level 8.5, Corrected Calcium 9.2, Magnesium Level 2.2, Total Bilirubin 0.7, Aspartate Amino Transf (AST/SGOT) 21, Alanine Aminotransferase (ALT/SGPT) 19, Alkaline Phosphatase 47, Total Protein 5.7, Albumin 3.1 05/11/22 05:42: White Blood Count 8.1, Red Blood Count 4.19, Hemoglobin 12.0, Hematocrit 36, Mean Corpuscular Volume 86, Mean Corpuscular Hemoglobin 29, Mean Corpuscular Hemoglobin Concent 33, Red Cell Distribution Width 13.2, Platelet Count 200, Mean Platelet Volume 10.1, Immature Granulocyte % (Auto) 1, Neutrophils (%) (Auto) 78, Lymphocytes (%) (Auto) 12, Monocytes (%) (Auto) 8, Eosinophils (%) (Auto) 1, Basophils (%) (Auto) 1, Neutrophils # (Auto) 6.3, Lymphocytes # (Auto) 1.0, Monocytes # (Auto) 0.6, Eosinophils # (Auto) 0.1, Basophils # (Auto) 0.0, Immature Granulocyte # (Auto) 0.1, Sodium Level 137, Potassium Level 3.8, Chloride Level 109, Carbon Dioxide Level 20, Anion Gap 8, Blood Urea Nitrogen 21, Creatinine 0.84, Estimat Glomerular Filtration Rate 90, BUN/Creatinine Ratio 25, Glucose Level 94, Calcium Level 8.6, Corrected Calcium 9.2, Magnesium Level 2.0, Total Bilirubin 0.7, Aspartate Amino Transf (AST/SGOT) 19, Alanine Aminotransferase (ALT/SGPT) 18, Alkaline Phosphatase 50, Total Protein 5.9, Albumin 3.2 05/12/22 05:02: White Blood Count 5.5, Red Blood Count 4.06, Hemoglobin 11.4, Hematocrit 35, Mean Corpuscular Volume 87, Mean Corpuscular Hemoglobin 28, Mean Corpuscular Hemoglobin Concent 32, Red Cell Distribution Width 13.2, Platelet Count 186, Mean Platelet Volume 9.8, Immature Granulocyte % (Auto) 1, Neutrophils (%) (Auto) 62, Lymphocytes (%) (Auto) 21, Monocytes (%) (Auto) 10, Eosinophils (%) (Auto) 5, Basophils (%) (Auto) 1, Neutrophils # (Auto) 3.4, Lymphocytes # (Auto) 1.2, Monocytes # (Auto) 0.5, Eosinophils # (Auto) 0.3, Basophils # (Auto) 0.1, Immature Granulocyte # (Auto) 0.0, Sodium Level 139, Potassium Level 4.1, Chloride Level 109, Carbon Dioxide Level 18, Anion Gap 12, Blood Urea Nitrogen 17, Creatinine 0.75, Estimat Glomerular Filtration Rate 94, BUN/Creatinine Ratio 23, Glucose Level 89, Calcium Level 8.6, Corrected Calcium 9.4, Magnesium Level 2.0, Total Bilirubin 0.7, Aspartate Amino Transf (AST/SGOT) 16, Alanine Ami notransferase (ALT/SGPT) 19, Alkaline Phosphatase 47, Total Protein 5.6, Albumin 3.0 05/13/22 06:27: White Blood Count 6.3, Red Blood Count 4.33, Hemoglobin 12.4, Hematocrit 38, Mean Corpuscular Volume 87, Mean Corpuscular Hemoglobin 29, Mean Corpuscular Hemoglobin Concent 33, Red Cell Distribution Width 13.2, Platelet Count 238, Mean Platelet Volume 10.0, Immature Granulocyte % (Auto) 1, Neutrophils (%) (Auto) 66, Lymphocytes (%) (Auto) 20, Monocytes (%) (Auto) 9, Eosinophils (%) (Auto) 3, Basophils (%) (Auto) 1, Neutrophils # (Auto) 4.2, Lymphocytes # (Auto) 1.3, Monocytes # (Auto) 0.6, Eosinophils # (Auto) 0.2, Basophils # (Auto) 0.0, Immature Granulocyte # (Auto) 0.1, Sodium Level 136, Potassium Level 4.0, Chloride Level 105, Carbon Dioxide Level 23, Anion Gap 8, Blood Urea Nitrogen 16, Creatinine 0.85, Estimat Glomerular Filtration Rate 90, BUN/Creatinine Ratio 19, Glucose Level 90, Calcium Level 8.8, Corrected Calcium 9.4, Magnesium Level 2.0, Total Bilirubin 0.7, Aspartate Amino Transf (AST/SGOT) 23, Alanine Aminotransferase (ALT/SGPT) 27, Alkaline Phosphatase 50, Total Protein 6.0, Albumin 3.3 Discharge Home Medications: Active Scripts Active Lorazepam Intensol (Lorazepam) 2 Mg/Ml Oral.conc 2 Mg PO Q2H PRN Morphine Conc. 20mg/ml (Morphine Sulfate) 100 Mg/5 Ml (20 Mg/Ml) Solution 10 Mg PO Q2H PRN 7 Days Instructions to patient/family Please see electronic discharge instructions given to patient. Diagnosis/Problems Diagnosis/Problems (1) SVT (supraventricular tachycardia) Status: Acute Clinical Quality Measures DVT/VTE Risk/Contraindication: Contraindications-Mechi: Other *list below* Other: OR CAT OLEARY DO May 14, 2022 11:53
[2022-05-14] MEDS ORDERED: fentaNYL PATCH 25 MCG (DURAGESIC) TD SCH (12:00)
--- NOTE | 2022-05-14 13:25 | Progress Note ---
SUNIL PARTIDA I 05/14/22 1325: Progress Note Jesse Luis is a 76 year old male with a past medical history of arthritis, gastrointestinal bleed, atrial fibrillation who recently underwent surgery for left total knee arthroplasty at [facility] which was complicated post operatively by superventricular tachycardia and was transferred to [facility] on 05/06/22. Throughout his hospital course, he experienced paroxysmal atrial fibrillation alternating with sinus node dysfunction which was treated with metoprolol and amiodarone. Cardiology was consulted and recommended pacemaker placement due to sick sinus syndrome, however this was declined after extensive discussion due to his DNR status and family wishes. He also experienced several bouts of delirium which included some combative episodes necessitating mild sedation. On 05/13, DPOA decided to transition to comfort care and he has remained comfortable since that time. CAT OLEARY DO 05/14/22 2019: Supervisory-Addendum Brief Verification & Attestation Participated in pt care: history, MDM, physical Personally performed: exam, history, MDM, supervision of care Care discussed with: Medical Student Procedures: n/a Results interpretation: Verified all documentation Verification and Attestation of Medical Student E/M Service A medical student performed and documented this service in my presence. I reviewed and verified all information documented by the medical student and made modifications to such information, when appropriate. I personally performed the physical exam and medical decision making. Cat Oleary, May 14, 2022,20:19 SUNIL PARTIDA I May 14, 2022 13:25 CAT OLEARY DO May 14, 2022 20:19
== END 2022-05-14 15:00 | disposition hospice, inpatient (51) | DRG 314 ==
LOC: ICU 18:35 → 4TH 05-09 15:11 → ICU 05-10 05:55 → 4TH 05-12 13:09 → ICU 05-13 09:40 → 4TH 05-13 22:56
PROVIDERS: ADMIT Internal Medicine; ATTEND Internal Medicine
DX: I97.191 Other postprocedural cardiac functional disturbances following other surgery (principal); I46.9 Cardiac arrest, cause unspecified; J18.9 Pneumonia, unspecified organism; E87.20 Acidosis, unspecified; I47.1 Supraventricular tachycardia; I48.92 Unspecified atrial flutter; F03.92 Unspecified dementia, unspecified severity, with psychotic disturbance; F05 Delirium due to known physiological condition; Z66 Do not resuscitate; Z51.5 Encounter for palliative care; I49.5 Sick sinus syndrome; I48.0 Paroxysmal atrial fibrillation; D50.0 Iron deficiency anemia secondary to blood loss (chronic); K25.9 Gastric ulcer, unspecified as acute or chronic, without hemorrhage or perforation; K21.00 Gastro-esophageal reflux disease with esophagitis, without bleeding; M17.11 Unilateral primary osteoarthritis, right knee; I08.0 Rheumatic disorders of both mitral and aortic valves; M19.91 Primary osteoarthritis, unspecified site; I10 Essential (primary) hypertension; E78.5 Hyperlipidemia, unspecified; I27.20 Pulmonary hypertension, unspecified; G25.0 Essential tremor; E11.9 Type 2 diabetes mellitus without complications; I95.1 Orthostatic hypotension; N40.1 Benign prostatic hyperplasia with lower urinary tract symptoms; N39.490 Overflow incontinence; R33.9 Retention of urine, unspecified; Z96.652 Presence of left artificial knee joint; Z87.891 Personal history of nicotine dependence
CPT/HCPCS: 36415; 71045; 80053; 80061; 82805; 82947; 83605; 83735; 83880; 84100; 84443; 84484; 85007; 85025; 85027; 85610; 85730; 87040; 87081; 93005; 94640; 94664; 94760